=== PATIENT | male | born 1935 | race Caucasian/White ===

== ENCOUNTER 2018-10-25 03:02 | Observation (INO) | payer MEDICARE ==
[~2018-10-25] VITALS: Ht 190.5 cm; Wt 79.4 kg
[~2018-10-25 03:02] MED LIST: ASPIRIN81 MG PO; DILANTIN100 MG PO; NEURONTIN100 MG PO; PHENOBARBITAL30 MG PO; dilantin
--- OUTSIDE RECORDS SUMMARY | 2018-10-25 03:05 | XMS REPORT | Continuity of Care Document ---
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 The patient has well controlled epilepsy life long. Originally documented as Generalized convulsive epilepsy. 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 The patient has a severe motor sensory iPN. I again recommended AFOs. This time, he was willing to go. 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 [facility] Compression fracture of vertebral column<sup>1</sup> Active 05/28/2015 Problem 02/19/2018 Data migrated from [employer] on 09/09/15. The patient describes recent fall related VCFs. His pain is much better and Dr. Box is managing the problem appropriately. Originally documented as Vertebral compression fracture. [facility] Peripheral vestibular vertigo<sup>6</sup> Active 01/22/2014 Problem 02/19/2018 Data migrated from [employer] on 09/09/15. Originally documented as Vertigo, peripheral. [facility] Epilepsy Active Problem 02/19/2018 [facility] EP (<span ID="[id number]">Confirmed</span>) Resolved Problem 02/19/2018 [facility] Vertigo, peripheral Resolved Problem 02/19/2018 [facility] Squamous cell skin cancer, multiple sites Resolved Problem 02/19/2018 [facility] Medications Medication Details Route Status Patient Instructions Ordering Provider Order Date Source PHENobarbital 30 mg oral tablet 90 mg=3 tab, PO, Bedtime, # 270 tab, 1 Refill(s), called to pharmacy Active 02/15/2018 [facility] gabapentin 100 MG Oral Capsule 200 mg=2 cap, PO, Bedtime, # 180 cap, 3 Refill(s), NIKIA, Pharmacy: [facility] [id number] Active 12/22/2017 [facility] phenytoin 100 mg oral capsule, extended release 300 mg=3 cap, PO, Bedtime, # 270 cap, 3 Refill(s), [id number] Active 12/22/2017 [facility] PHENobarbital 30 mg oral tablet 30 mg=1 tab, PO, TID, # 270 tab, 3 Refill(s) Active 12/22/2017 [facility] PHENobarbital 30 mg oral tablet 30 mg=1 tab, PO, TID, # 270 tab, 0 Refill(s), called to pharmacy No Longer Active 11/08/2017 [facility] Allergies, Adverse Reactions, Alerts Substance Category Reaction Severity Reaction type Status Date Reported Comments Source Immunizations Immunization Date Given Site Status Last Updated Comments Source Results Order Name Results Value Reference Range Date Interpretation Comments Source Vital Signs Vital Sign Value Date Comments Source BMI Calculated 22.55 02[facility]03[facility]2018 [facility] Weight 81.818 02/03/2018 [facility] Height 190.5 cm 02/03/2018 [facility] Heart Rate 92 02/03/2018 [facility] Systolic (mm Hg) 154 02/03/2018 [facility] Diastolic (mm Hg) 94 02/03/2018 [facility] Weight 80.966 12/22/2017 [facility] Heart Rate 83 12/22/2017 [facility] Systolic (mm Hg) 145 12/22/2017 [facility] Diastolic (mm Hg) 87 12/22/2017 [facility] Encounters Location Location Details Encounter Type Encounter Number Reason For Visit Attending Provider ADM Date DC Date Status Source Outpatient [id number] [facility] 04/[facility]2016 Active [facility] [id number] [facility] 10/21/2016 Active [facility] [id number] [facility] 04/27/2017 Active [facility] [id number] [facility] Ambulatory Pre-Reg [id number] [facility] 10[facility]25/2017 10/25/2017 [facility] MIA Neurology [facility] Phone Message [id number] 11/08/2017 11/10/2017 [facility] [id number] [facility] 12/22/2017 Active [facility] MNA Neurology [facility] Outpatient [id number] [facility] 12/22/2017 12/23/2017 [facility] MNA Neurology [facility] Phone Message [id number] 01/04/2018 01/06/2018 [facility]NA [facility] Phone Message [id number] 01/06/2018 01/08/2018 [facility] MNA Neurology [facility] Phone Message [id number] 01/25/2018 01/27/2018 [facility] Outpatient [id number] ESPERANZA GORDILLO 02/03/2018 Active [facility] MNA Neurology [facility] Outpatient [id number] [facility] 02/03/2018 02/04/2018 [facility] MNA Neurology [facility] Phone Message [id number] 02/15/2018 02/17/2018 [facility] [id number] [facility] 06/23/2018 Active [facility] Outpatient [id number] ESPERANZA GORDILLO 09/05/2018 Active [facility] [id number] [facility] 12/21/2018 Active [facility] Procedures Procedure Code Date Perfomer Comments Source T[facility]illect[facility] [id number] [facility]23/[facility] [id number] [facility] Complicated cataract [facility] [id number] [facility]
--- OUTSIDE RECORDS SUMMARY | 2018-10-25 03:05 | XMS REPORT | Summary of Care ---
Author Author [facility] Organization [facility] Address Unknown Phone Unavailable Encounter MARIO Shaw(FABIO) [id number] Date(s): 10/25/17 - 10/25/17 [facility] [address] [place] [phone] Attending Physician: Jonas Chester MD Referring Physician: Josi Klein MD Vital Signs No data available for this section Problem List Condition Effective Dates Status Health Status Informant Compression fracture 05/28/15 Active of vertebral column(Confirmed)1 Epilepsy(Confirmed) Active EP Resolved (epilepsy)(Confirmed ) Generalized 09/16/16 Active convulsive epilepsy(Confirmed)2 , 3, 4 Idiopathic 04/23/16 Active progressive polyneuropathy(Confi rmed)5 Peripheral 01/22/14 Active vestibular vertigo(Confirmed)6 Vertigo, Resolved peripheral(Confirmed ) Squamous cell skin Resolved cancer, multiple sites(Confirmed) 1Data migrated from [employer] on 09/09/15. The patient describes recent fall related VCFs. His pain is much better and Dr. Box is managing the problem appropriately. Originally documented as Vertebral compression fracture. 2Data migrated from [employer] on 09/27/2016. The patient has well controlled epilepsy life long. Originally documented as Generalized convulsive epilepsy. 3Data migrated from [employer] on 09/27/2016. The patient has well controlled epilepsy life long. Originally documented as Generalized convulsive epilepsy. 4Data migrated from [employer] on 09/09/15. The patient has well controlled epilepsy life long. Originally documented as Generalized convulsive epilepsy. 5Data migrated from [employer] on 09/09/15. The patient has a severe motor sensory iPN. I again recommended AFOs. This time, he was willing to go. 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 6Data migrated from [employer] on 09/09/15. Originally documented as Vertigo, peripheral. Allergies, Adverse Reactions, Alerts Substance Reaction Severity Status NKDA Active Medications No data available for this section Results No data available for this section Immunizations No data available for this section Procedures Procedure Date Related Diagnosis Body Site Status Tonsillectomy 1937 Completed Tonsillectomy 1937 Completed Cataract surgery Completed Complicated cataract surgery Completed Social History Social History Type Response Employment/School Status: Retired. Highest education level: Other. Alcohol Never Smoking Status Former smoker; Exposure to Tobacco Smoke Unable to obtain; Cigarette Smoking Last 365 Days Unable to obtain; Reg Smoking Cessation Counseling No entered on: 04/27/17 Assessment and Plan No data available for this section
--- OUTSIDE RECORDS SUMMARY | 2018-10-25 03:06 | XMS REPORT | Summary of Care ---
Author Author [facility] Organization [facility] Address Unknown Phone Unavailable Encounter MARIO Shaw(FABIO) [id number] Date(s): 01/25/18 - 01/26/18 [facility] [address] [place] [phone] Vital Signs No data available for this section Problem List Condition Effective Dates Status Health Status Informant Compression fracture 05/28/15 Active of vertebral column(Confirmed)1 Epilepsy(Confirmed) Active EP Resolved (epilepsy)(Confirmed ) Generalized 09/16/16 Active convulsive epilepsy(Confirmed)2 , 3, 4 Idiopathic 04/23/16 Active progressive polyneuropathy(Confi rmed)5 Peripheral 01/22/14 Active vestibular vertigo(Confirmed)6 Vertigo, Resolved peripheral(Confirmed ) Squamous cell skin Resolved cancer, multiple sites(Confirmed) 1Data migrated from [employer] on 09/09/15. The patient describes recent fall related VCFs. His pain is much better and Dr. Box is managing the problem appropriately. Originally documented as Vertebral compression fracture. 2Data migrated from [employer] on 09/27/2016. The patient has well controlled epilepsy life long. Originally documented as Generalized convulsive epilepsy. 3Data migrated from [employer] on 09/27/2016. The patient has well controlled epilepsy life long. Originally documented as Generalized convulsive epilepsy. 4Data migrated from [employer] on 09/09/15. The patient has well controlled epilepsy life long. Originally documented as Generalized convulsive epilepsy. 5Data migrated from [employer] on 09/09/15. The patient has a severe motor sensory iPN. I again recommended AFOs. This time, he was willing to go. 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 6Data migrated from [employer] on 09/09/15. Originally documented as Vertigo, peripheral. [...] Completed Social History Social History Type Response Substance Abuse Use: None. Employment/School Status: Retired. Highest education level: Other. Alcohol Never Smoking Status Former smoker; Exposure to Tobacco Smoke Unable to obtain; Cigarette Smoking Last 365 Days Unable to obtain; Reg Smoking Cessation Counseling No entered on: 12/22/17 Assessment and Plan No data available for this section
--- OUTSIDE RECORDS SUMMARY | 2018-10-25 03:06 | XMS REPORT | Summary of Care ---
Author Author [facility] Organization [facility] Address Unknown Phone Unavailable Encounter MARIO Shaw(FABIO) [id number] Date(s): 12/22/17 - 12/22/17 [facility] [address] [place] [phone] Discharge Disposition: Home or Self Care Attending Physician: Jonas Chester MD Referring Physician: oJsi Klein MD Vital Signs Most recent to 1 oldest [Reference Range]: Blood Pressure 145/87 mmHg [90-140/60-90 mmHg] *HI* (12/22/17 4:00 PM) Peripheral Pulse 83 bpm Rate [60-100 bpm] (12/22/17 4:00 PM) Weight 80.966 kg (12/22/17 4:00 PM) Problem List Condition Effective Dates Status Health Status Informant Compression fracture 05/28/15 Active of vertebral column(Confirmed)1 Epilepsy(Confirmed) Active EP Resolved (epilepsy)(Confirmed ) Generalized 09/16/16 Active convulsive epilepsy(Confirmed)2 , 3, 4 Idiopathic 04/23/16 Active progressive polyneuropathy(Confi rmed)5 Peripheral 01/22/14 Active vestibular vertigo(Confirmed)6 Vertigo, Resolved peripheral(Confirmed ) Squamous cell skin Resolved cancer, multiple sites(Confirmed) 1Data migrated from [employer] on 09/09/15. The patient describes recent fall related VCFs. His pain is much better and Dr. Box is managing the problem appropriately. Originally documented as Vertebral compression fracture. 2Data migrated from [employer] on 09/27/2016. The patient has well controlled epilepsy life long. Originally documented as Generalized convulsive epilepsy. 3Data migrated from [employer] on 09/27/2016. The patient has well controlled epilepsy life long. Originally documented as Generalized convulsive epilepsy. 4Data migrated from [employer] on 09/09/15. The patient has well controlled epilepsy life long. Originally documented as Generalized convulsive epilepsy. 5Data migrated from [employer] on 09/09/15. The patient has a severe motor sensory iPN. I again recommended AFOs. This time, he was willing to go. 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 6Data migrated from [employer] on 09/09/15. Originally documented as Vertigo, peripheral. Allergies, Adverse Reactions, Alerts Substance Reaction Severity Status NKDA Active Medications gabapentin 100 mg oral capsule 200 mg=2 cap, PO, Bedtime, # 180 cap, 3 Refill(s), NIKIA, Pharmacy: [facility] [id number] Start Date: 12/22/17 Stop Date: 12/17/18 Status: Ordered PHENobarbital 30 mg oral tablet 30 mg=1 tab, PO, TID, # 270 tab, 3 Refill(s) Start Date: 12/22/17 Stop Date: 12/17/18 Status: Ordered phenytoin 100 mg oral capsule, extended release 300 mg=3 cap, PO, Bedtime, # 270 cap, 3 Refill(s), Pharmacy: [id number] Start Date: 12/22/17 Stop Date: 12/17/18 Status: Ordered Results No data available for this section [...]
--- OUTSIDE RECORDS SUMMARY | 2018-10-25 03:06 | XMS REPORT | Summary of Care ---
Author Author [facility] Organization [facility] Address Unknown Phone Unavailable Encounter MARIO Shaw(FABIO) [id number] Date(s): 12/22/17 - 12/22/17 [facility] [address] [place] [phone] Discharge Disposition: Home or Self Care Attending Physician: Jonas Chester MD Referring Physician: Josi Klein MD Vital Signs Most recent to [...] Resolved cancer, multiple sites(Confirmed) 1Data migrated from [employer] on 09/09/15. The patient describes recent fall related VCFs. His pain is much better and Dr. Box is managing the problem appropriately. Originally documented as Vertebral compression fracture. 2Data migrated from [employer] on 09/27/2016. The patient has well controlled epilepsy life long. Originally documented as Generalized convulsive epilepsy. 3Data migrated from [employer] on 09/27/2016. The patient has well controlled epilepsy life long. Originally documented as Generalized convulsive epilepsy. 4Data migrated from [employer] on 09/09/15. The patient has well controlled epilepsy life long. Originally documented as Generalized convulsive epilepsy. 5Data migrated from [employer] on 09/09/15. The patient has a severe motor sensory iPN. I again recommended AFOs. This time, he was willing to go. 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 6Data migrated from [employer] on 09/09/15. Originally documented as Vertigo, peripheral. Allergies, Adverse Reactions, Alerts Substance Reaction Severity Status NKDA Active Medications gabapentin 100 mg oral capsule 200 mg=2 cap, PO, Bedtime, # 180 cap, 3 Refill(s), NIKIA, Pharmacy: [id number] Start Date: 12/22/17 Stop Date: 12/17/18 Status: Ordered PHENobarbital 30 mg oral tablet 30 mg=1 tab, PO, TID, # 270 tab, 3 Refill(s) Start Date: 12/22/17 Stop Date: 12/17/18 Status: Ordered phenytoin 100 mg oral capsule, extended release 300 mg=3 cap, PO, Bedtime, # 270 cap, 3 Refill(s), Pharmacy: [id number] Start Date: 12/22/17 Stop Date: 12/17/18 Status: [...]
--- OUTSIDE RECORDS SUMMARY | 2018-10-25 03:06 | XMS REPORT | Summary of Care ---
Author Author [facility] Organization [facility] Address Unknown Phone Unavailable Encounter MARIO Shaw(FABIO) [id number] Date(s): 02/03/18 - 02/03/18 [facility] [address] [place] [phone] Discharge Disposition: Home or Self Care Attending Physician: Jonas Chester MD Referring Physician: Josi Klein MD Vital Signs Most recent to 1 oldest [Reference Range]: Height 190.5 cm (02/03/18 10:53 AM) Blood Pressure 154/94 mmHg [90-140/60-90 mmHg] *HI* (02/03/18 10:53 AM) Peripheral Pulse 92 bpm Rate [60-100 bpm] (02/03/18 10:53 AM) Weight 81.818 kg (02/03/18 10:53 AM) Body Mass Index 22.55 m2 (02/03/18 10:53 AM) Problem List Condition Effective Dates Status Health Status Informant Compression fracture 05/28/15 Active of vertebral column(Confirmed)1 Epilepsy(Confirmed) Active EP Resolved (epilepsy)(Confirmed ) Generalized 09/16/16 Active convulsive epilepsy(Confirmed)2 , 3, 4 Idiopathic 04/23/16 Active progressive polyneuropathy(Confi rmed)5 Peripheral 01/22/14 Active vestibular vertigo(Confirmed)6 Vertigo, Resolved peripheral(Confirmed ) Squamous cell skin Resolved cancer, multiple sites(Confirmed) 1Data migrated from [employer] on 09/09/15. The patient describes recent fall related VCFs. His pain is much better and Dr. Box is managing the problem appropriately. Originally documented as Vertebral compression fracture. 2Data migrated from [employer] on 09/27/2016. The patient has well controlled epilepsy life long. Originally documented as Generalized convulsive epilepsy. 3Data migrated from [employer] on 09/27/2016. The patient has well controlled epilepsy life long. Originally documented as Generalized convulsive epilepsy. 4Data migrated from [employer] on 09/09/15. The patient has well controlled epilepsy life long. Originally documented as Generalized convulsive epilepsy. 5Data migrated from [employer] on 09/09/15. The patient has a severe motor sensory iPN. I again recommended AFOs. This time, he was willing to go. 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 6Data migrated from [employer] on 09/09/15. Originally documented as Vertigo, peripheral. Allergies, Adverse Reactions, Alerts Substance Reaction Severity Status NKDA Active Medications No Known Medications Results No data available for this section [...] Reg Smoking Cessation Counseling No entered on: 02/03/18 Assessment and Plan No data available for this section
--- OUTSIDE RECORDS SUMMARY | 2018-10-25 03:06 | XMS REPORT | Summary of Care ---
Author Author [facility] Organization [facility] Address Unknown Phone Unavailable Encounter MARIO Shaw(FIN) [id number] Date(s): 01/04/18 - 01/05/18 [facility] [address] [place] [phone] Vital Signs No data available for this section Problem List Condition Effective Dates Status Health Status Informant Compression fracture 05/28/15 Active of vertebral column(Confirmed)1 Epilepsy(Confirmed) Active EP Resolved (epilepsy)(Confirmed ) Generalized 09/16/16 Active convulsive epilepsy(Confirmed)2 , 3, 4 Idiopathic 04/23/16 Active progressive polyneuropathy(Confi rmed)5 Peripheral 01/22/14 Active vestibular vertigo(Confirmed)6 Vertigo, Resolved peripheral(Confirmed ) Squamous cell skin Resolved cancer, multiple sites(Confirmed) 1Data migrated from [employer] on 09/09/15. The patient describes recent fall related VCFs. His pain is much better and Dr. Box is managing the problem appropriately. Originally documented as Vertebral compression fracture. 2Data migrated from [employer] on 09/27/2016. The patient has well controlled epilepsy life long. Originally documented as Generalized convulsive epilepsy. 3Data migrated from [employer] on 09/27/2016. The patient has well controlled epilepsy life long. Originally documented as Generalized convulsive epilepsy. 4Data migrated from [employer] on 09/09/15. The patient has well controlled epilepsy life long. Originally documented as Generalized convulsive epilepsy. 5Data migrated from [employer] on 09/09/15. The patient has a severe motor sensory iPN. I again recommended AFOs. This time, he was willing to go. 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 6Data migrated from [employer] on 09/09/15. Originally documented as Vertigo, peripheral. [...]
--- OUTSIDE RECORDS SUMMARY | 2018-10-25 03:06 | XMS REPORT | Summary of Care ---
Author Author [facility] Organization [facility] Address Unknown Phone Unavailable Encounter MARIO Shaw(FIN) [id number] Date(s): 11/08/17 - 11/09/17 [facility] [address] [place] [phone] Vital Signs No data available for this section Problem List Condition Effective Dates Status Health Status Informant Compression fracture 05/28/15 Active of vertebral column(Confirmed)1 Epilepsy(Confirmed) Active EP Resolved (epilepsy)(Confirmed ) Generalized 09/16/16 Active convulsive epilepsy(Confirmed)2 , 3, 4 Idiopathic 04/23/16 Active progressive polyneuropathy(Confi rmed)5 Peripheral 01/22/14 Active vestibular vertigo(Confirmed)6 Vertigo, Resolved peripheral(Confirmed ) Squamous cell skin Resolved cancer, multiple sites(Confirmed) 1Data migrated from [employer] on 09/09/15. The patient describes recent fall related VCFs. His pain is much better and Dr. Box is managing the problem appropriately. Originally documented as Vertebral compression fracture. 2Data migrated from [employer] on 09/27/2016. The patient has well controlled epilepsy life long. Originally documented as Generalized convulsive epilepsy. 3Data migrated from [employer] on 09/27/2016. The patient has well controlled epilepsy life long. Originally documented as Generalized convulsive epilepsy. 4Data migrated from [employer] on 09/09/15. The patient has well controlled epilepsy life long. Originally documented as Generalized convulsive epilepsy. 5Data migrated from [employer] on 09/09/15. The patient has a severe motor sensory iPN. I again recommended AFOs. This time, he was willing to go. 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 6Data migrated from [employer] on 09/09/15. Originally documented as Vertigo, peripheral. Allergies, Adverse Reactions, Alerts Substance Reaction Severity Status NKDA Active Medications PHENobarbital 30 mg oral tablet 30 mg=1 tab, PO, TID, # 270 tab, 0 Refill(s), called to pharmacy Start Date: 11/08/17 Stop Date: 12/22/17 Status: Discontinued Results No data available for this section [...]
--- OUTSIDE RECORDS SUMMARY | 2018-10-25 03:06 | XMS REPORT | Summary of Care ---
Author Author [facility] Organization [facility] Address Unknown Phone Unavailable Encounter MARIO Shaw(FABIO) [id number] Date(s): 02/15/18 - 02/16/18 [facility] [address] [place] [phone] Vital Signs No data available for this section Problem List Condition Effective Dates Status Health Status Informant Compression fracture 05/28/15 Active of vertebral column(Confirmed)1 Epilepsy(Confirmed) Active EP Resolved (epilepsy)(Confirmed ) Generalized 09/16/16 Active convulsive epilepsy(Confirmed)2 , 3, 4 Idiopathic 04/23/16 Active progressive polyneuropathy(Confi rmed)5 Peripheral 01/22/14 Active vestibular vertigo(Confirmed)6 Vertigo, Resolved peripheral(Confirmed ) Squamous cell skin Resolved cancer, multiple sites(Confirmed) 1Data migrated from [employer] on 09/09/15. The patient describes recent fall related VCFs. His pain is much better and Dr. Box is managing the problem appropriately. Originally documented as Vertebral compression fracture. 2Data migrated from Re[employer] on 09/27/2016. The patient has well controlled epilepsy life long. Originally documented as Generalized convulsive epilepsy. 3Data migrated from [employer] on 09/27/2016. The patient has well controlled epilepsy life long. Originally documented as Generalized convulsive epilepsy. 4Data migrated from [employer] on 09/09/15. The patient has well controlled epilepsy life long. Originally documented as Generalized convulsive epilepsy. 5Data migrated from Re[employer] on 09/09/15. The patient has a severe motor sensory iPN. I again recommended AFOs. This time, he was willing to go. 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 6Data migrated from Recl[employer] on 09/09/15. Originally documented as Vertigo, peripheral. Allergies, Adverse Reactions, Alerts Substance Reaction Severity Status NKDA Active Medications PHENobarbital 30 mg oral tablet 90 mg=3 tab, PO, Bedtime, # 270 tab, 1 Refill(s), called to pharmacy Start Date: 02/15/18 Stop Date: 08/14/18 Status: Ordered Results No data available for [...]
--- OUTSIDE RECORDS SUMMARY | 2018-10-25 03:06 | XMS REPORT | Summary of Care ---
Author Author [facility] Organization [facility] Address Unknown Phone Unavailable Encounter MARIO Shaw(FABIO) [id number] Date(s): 01/06/18 - 01/07/18 [facility] Neurosurgery [facility] [address], [address] [place], [place] [address] [phone] Vital Signs No data available for this section Problem List Condition Effective Dates Status Health Status Informant Compression fracture 05/28/15 Active of vertebral column(Confirmed)1 Epilepsy(Confirmed) Active EP Resolved (epilepsy)(Confirmed ) 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 The patient describes recent fall related VCFs. His pain is much better and Dr. Box is managing the problem appropriately. Originally documented as Vertebral compression fracture. 2Data migrated from [employer] on 09/27/2016. The patient has well controlled epilepsy life long. Originally documented as Generalized convulsive epilepsy. 3Data migrated from [employer] on 09/27/2016. The patient has well controlled epilepsy life long. Originally documented as Generalized convulsive epilepsy. 4Data migrated from [employer] on 09/09/15. The patient has well controlled epilepsy life long. Originally documented as Generalized convulsive epilepsy. 5Data migrated from [employer] on 09/09/15. The patient has a severe motor sensory iPN. I again recommended AFOs. This time, he was willing to go. 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 6Data migrated from [employer] on 09/09/15. Originally documented as Vertigo, peripheral. [...]
--- OUTSIDE RECORDS SUMMARY | 2018-10-25 03:06 | XMS REPORT | Summary of Care ---
Author Author [facility] Organization [facility] Address Unknown Phone Unavailable Encounter MARIO Shaw(FABIO) [id number] Date(s): 10/25/17 - 10/25/17 [facility] [address] [place] [phone] Attending Physician: Jonas Chester MD Referring Physician: [...] Resolved cancer, multiple sites(Confirmed) 1Data migrated from [employer] on 09/09/15. The patient describes recent fall related VCFs. His pain is much better and Dr. Box is managing the problem appropriately. Originally documented as Vertebral compression fracture. 2Data migrated from [employer] on 09/27/2016. The patient has well controlled epilepsy life long. Originally documented as Generalized convulsive epilepsy. 3Data migrated from [employer] on 09/27/2016. The patient has well controlled epilepsy life long. Originally documented as Generalized convulsive epilepsy. 4Data migrated from [employer] on 09/09/15. The patient has well controlled epilepsy life long. Originally documented as Generalized convulsive epilepsy. 5Data migrated from [employer] on 09/09/15. The patient has a severe motor sensory iPN. I again recommended AFOs. This time, he was willing to go. 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 6Data migrated from [employer] on 09/09/15. Originally documented as Vertigo, peripheral. [...]
[2018-10-25 03:45] LABS: BASOPHILS % 0.3 % (0.0-1.0); EOSINOPHILS # (AUTO) 0.3 (0.0-0.4); EOSINOPHILS % 4.4 % (0.0-6.0); HEMATOCRIT 33.7 % (38.2-49.6); HEMOGLOBIN 11.8 g/dL (14.0-18.0); LYMPHOCYTES # (AUTO) 0.9 (1.0-3.2); LYMPHOCYTES % 11.5 % (18.0-39.1); MEAN CORPUSCULAR HEMOGLOBIN 33.4 pg (28-32); MEAN CORPUSCULAR VOLUME 95.5 fL (81-99); MONOCYTES # (AUTO) 0.8 (0.2-0.8); MONOCYTES % 10.5 % (4.4-11.3); NEUTROPHILS # (AUTO) 5.7 (2.1-6.9); NEUTROPHILS % 72.8 % (38.7-80.0); PLATELET COUNT 214 x10e3/uL (140-360); RED BLOOD COUNT 3.53 x10e6/uL (4.3-5.7); RED CELL DISTRIBUTION WIDTH 12.5 % (11.7-14.4)
--- NOTE | 2018-10-25 03:50 | NUR ---
pt attempted to void in urinal, states he cannot void.
[2018-10-25 04:03] LABS: ALANINE AMINOTRANSFERASE 15 IU/L (0-55); ALBUMIN 3.7 g/dL (3.5-5.0); ALBUMIN/GLOBULIN RATIO 1.1 (0.8-2.0); ALKALINE PHOSPHATASE 92 IU/L (40-150); ANION GAP 13.7 mmol/L (8-16); BLOOD UREA NITROGEN 12 mg/dL (7-26); BUN/CREATININE RATIO 15 (6-25); CALCIUM 9.5 mg/dL (8.4-10.2); CARBON DIOXIDE 24 mmol/L (22-29); CHLORIDE 95 mmol/L (98-107); CREATINE KINASE 99 IU/L (30-200); EST GLOMERULAR FILTRATION RATE > 60 ML/MIN (60-); GLUCOSE 101 mg/dL (74-118); POTASSIUM 3.7 mmol/L (3.5-5.1); SODIUM 129 mmol/L (136-145)
[2018-10-25] MEDS ORDERED: LISINOPRIL20 MG PO (04:43)
--- NOTE | 2018-10-25 04:44 | Diagnostic Imaging Report ---
EXAMINATION: CHEST SINGLE (NOT PORTABLE) INDICATION: weakness COMPARISON: Chest x-ray 02/17/2017 FINDINGS: AP view TUBES and LINES: None. LUNGS: Lungs are well inflated. There is no evidence of pneumonia or pulmonary edema. PLEURA: No pleural effusion or pneumothorax. HEART AND MEDIASTINUM: Stable prominence of the right paratracheal stripe since 02/17/2017 possibly related to mediastinal lipomatosis or vascular silhouette given stability. The cardiomediastinal silhouette is otherwise unremarkable. BONES AND SOFT TISSUES: No acute osseous lesion. Soft tissues are unremarkable. UPPER ABDOMEN: No free air under the diaphragm. IMPRESSION: No acute thoracic abnormality. Signed by: DR. Zion Butler MD on 10/25/2018 4:41 AM
--- NOTE | 2018-10-25 04:46 | Diagnostic Imaging Report ---
HIP RIGHT 2-3 VW (+/- PELVIS) HISTORY: Pain. Fall. COMPARISON: None available. FINDINGS: Bones: No acute displaced fracture. Osseous alignment is within normal limits. Joints: Mild to moderate degenerative changes of the hips. Soft tissues: The soft tissues appear unremarkable. IMPRESSION: No acute radiographic abnormality. Signed by: DR. Zion Butler MD on 10/25/2018 4:43 AM
[2018-10-25 04:58] LABS: BILIRUBIN,URINE NEGATIVE (NEGATIVE); CLARITY,URINE CLEAR (CLEAR); COLOR,URINE YELLOW (YELLOW); KETONES,URINE NEGATIVE (NEGATIVE); LEUKOCYTE ESTERASE ,URINE NEGATIVE (NEGATIVE); NITRITE,URINE NEGATIVE (NEGATIVE); PROTEIN,URINE DIPSTICK NEGATIVE (NEGATIVE); URINE UROBILINOGEN 0.2 mg/dL (0.2 - 1)
[2018-10-25 05:08] LABS: EPITHELIAL CELLS,URINE RARE /LPF; RBC,URINE 0-5 /HPF (0-5); WBC,URINE (MAN) 0-5 /HPF (0-5)
--- NOTE | 2018-10-25 06:21 | NUR ---
PT AWAKE ALERT SKIN W/D RESP NONLAB. NAD NOTED. AWAITING PHENOBARITAL AND DILANTIN LEVELS, EXPLAINED TO PATIENT, VERBALIZED UNDERSTANDING. AT BEDSIDE
--- OUTSIDE RECORDS SUMMARY | 2018-10-25 06:23 | XMS REPORT ---
Author Author [facility] Address Unknown Phone Unavailable Care Team Providers Care Multimedia Project Manager Name Role Phone Aram SALAZAR Unavailable Unavailable Problems This patient has no known problems. Allergies, Adverse Reactions, Alerts This patient has no known allergies or adverse reactions. Medications This patient has no known medications. Results Test Description Test Time Test Comments Text Results Atomic Results Result Comments HIP RIGHT 2-3 VW (+/- PELVIS) 2018-10-25 04:41:00 [place] [address] Patient Name: MARISELA SMITH MR #: [id number] : 1935 Age/Sex: 83/M Req #: [id number] Adm Physician: Ordered by: DEE SALAZAR MD Report #: [id number] Location: ER Room/Bed: Procedure: [id number] DX/HIP RIGHT 2-3 VW (+/- PELVIS) Exam Date: Exam Time: REPORT STATUS: Signed HIP RIGHT 2-3 VW (+/- PELVIS) HISTORY: Pain. Fall. COMPARISON: None available. FINDINGS: Bones: No acute displaced fracture. Osseous alignment is within normal limits. Joints: Mild to moderate degenerative changes of the hips. Soft tissues: The soft tissues appear unremarkable. IMPRESSION: No acute radiographic abnormality. Signed by: DR. Zion Butler MD on 10/25/2018 4:43 AM Dictated By: ZION BUTLER MD 2 Transcribed By: HARI on 10/25/18442 COPY TO: DEE SALAZAR MD CHEST SINGLE (NOT PORTABLE) 2018-10-25 04:39:00 [place] [address] Patient Name: MARISELA SMITH MR #: [id number] : 1935 Age/Sex: 83/M Req #: [id number] Adm Physician: Ordered by: DEE SALAZAR MD Report #: [id number] Location: ER Room/Bed: Procedure: [id number] DX/CHEST SINGLE (NOT PORTABLE) Exam Date: 10/25/18 Exam Time: 5 REPORT STATUS: Signed EXAMINATION: CHEST SINGLE (NOT PORTABLE) INDICATION: weakness COMPARISON: Chest x-ray 02/17/2017 FINDINGS: AP view TUBES and LINES: None. LUNGS: Lungs are well inflated. There is no evidence of pneumonia or pulmonary edema. PLEURA: No pleural effusion or pneumothorax. HEART AND MEDIASTINUM: Stable prominence of the right paratracheal stripe since 02/17/2017 possibly related to medias tinal lipomatosis or vascular silhouette given stability. The cardiomediastinal silhouette is otherwise unremarkable. BONES AND SOFT TISSUES: No acute osseous lesion. Soft tissues are unremarkable. UPPER ABDOMEN: No free air under the diaphragm. IMPRESSION: No acute thoracic abnormality. Signed by: DR. Zion Butler MD on 10/25/2018 4:41 AM Dictated By: ZION BUTLER MD 0 Transcribed By: HARI on 10/25/18440 COPY TO: DEE SALAZAR MD
--- NOTE | 2018-10-25 06:51 | NUR ---
report to yakov vick
[2018-10-25] MEDS ORDERED: ONDANSETRON HCL INJ 2MG/ML 2ML 2 MG/ML VIAL IV PRN (07:00)
[2018-10-25] MEDS ORDERED: SODIUM CHLORIDE FLUSH 10 ML SYR INJ PRN (07:00)
--- NOTE | 2018-10-25 08:34 | NUR ---
CALLED HS REGARDING CASE ASHLEY CONSULT. FM/PT UPDATED ON PLAN OF CARE.
[2018-10-25] MEDS ORDERED: ASPIRIN 81 MG CHEW TAB PO SCH (09:00)
[2018-10-25] MEDS ORDERED: LISINOPRIL 20 MG TAB PO SCH (09:00)
--- NOTE | 2018-10-25 10:06 | NUR ---
BALJEET HERE SEEING PT AND PHY.THERAPY IN ROOM DOING EVAL. PT/FM WITH MULTIPLE UPDATES. NOT WITH PT FOR LAST SEVERAL HRS. [facility] NOTIFIED OF PT AND COMING TO DO EVAL FOR PT TO SEE IF QUALIFIES FOR [facility].
--- NOTE | 2018-10-25 10:48 | NUR ---
PT UPDATED AGAIN. PT NEW BEDDING AND CLEAN LINEN. WALKED 35 FEET WITH PT. BACK IN BED, MONITORS ON VSS.
--- NOTE | 2018-10-25 10:59 | NUR ---
SPOKE WITH PATIENT HE WOULD LIKE TO GO TO [facility] SIGNED CHOICE FILED WITH CHART AND CONTACTED KATARZYNA WITH [facility] WHOM IS PICKING UP CLINICALS TO EVALUATE PT FOR REFERRAL.
--- NOTE | 2018-10-25 11:50 | NUR ---
KATARZYNA FROM [facility] SAW PT AND AWAITING PLACEMENT...
--- NOTE | 2018-10-25 13:20 | NUR ---
DR ANDERSON SAW PT IN ER FOR EVAL.
--- NOTE | 2018-10-25 13:55 | NUR ---
PER MD, PT TO HAVE HIP CT; EDI [facility]ATZ [facility] STILL DOING EVAL/PAPERWORK. MD AWARE. PT AND FM UPDATED.
--- NOTE | 2018-10-25 15:49 | Diagnostic Imaging Report ---
TECHNIQUE: Computed tomography imaging of the RIGHT HIP was performed WITHOUT injected contrast. Dose modulation, iterative reconstruction, and/or weight based adjustment of the mA/kV was utilized to reduce the radiation dose to as low as reasonably achievable. HISTORY: Right hip pain COMPARISON: None available. FINDINGS: No displaced fracture. No lytic or blastic lesion. Mild degenerative arthrosis of the hip and pubic symphysis with chondrocalcinosis. No soft tissue mass or fluid collection. Vascular calcifications. Mild generalized atrophy. IMPRESSION: No displaced fracture. Mild degenerative arthrosis of the hip Signed by: Dr. Stefan Michaels M.D. on 10/25/2018 3:45 PM
--- NOTE | 2018-10-25 15:58 | NUR ---
SPOKE WITH [facility] AGUILAR PT ACCEPTED CALL REPORT AND SET UP TRANSPORT AT 730 TO GO TO [address] [place] [address], [place] [address]. CALL REPORT TO [phone] ADMIN IS FAMILIA WARD AT SAME NUMBER, MOT GIVEN TO ED CHARGE NURSE NITISH Crawley
--- NOTE | 2018-10-25 16:03 | NUR ---
CALLED NON [employer] TO DO A WELL CHECK ON PT. UPDATED PT.
--- NOTE | 2018-10-25 17:04 | NUR ---
CALLED REPORT TO JONATHAN MARION.
--- NOTE | 2018-10-25 17:17 | NUR ---
CALLED LEXY @ [facility] AND SET UP APPT WINDOW INSTALLATION SUBCONTRACTOR FOR [address] TO TAKE PT TO [facility] [address]. UPDATED PT
--- NOTE | 2018-10-25 17:48 | NUR ---
SPOKE TO BERNABE, PT'S DAUGHTER AND UPDATED PT. PT'S IS WITH FM FRIEND NAMED CONY AND PT'S DAUGHTER IS ON HER WAY WITH HER LORRAINE AND WILL GEOPHYSICAL DATA TECHNICIAN PT'S MIKE AND COME TO ER OR IF PAST [address] WILL DRIVE TO [facility] AND SEE PT THERE. PT UPDATED OF ALL INFORMATION. PT HAS FOOD TRAY AT BEDSIDE AND ASST WITH FOOD.
--- NOTE | 2018-10-25 18:24 | NUR ---
NUMBER OFF PHONE FOR PT TO HAVE FOR HIS DAUGHTERS CELL NUMBER.
--- NOTE | 2018-10-25 19:00 | NUR ---
REPORT TO PADILLA
[2018-10-25] MEDS ORDERED: ACETAMINOPHEN 325 MG TAB PO PRN (21:00)
[2018-10-25] MEDS ORDERED: GABAPENTIN 100 MG CAP PO SCH (21:00)
[2018-10-25] MEDS ORDERED: PHENOBARBITAL 30 MG TAB PO SCH (21:00)
[2018-10-25] MEDS ORDERED: PHENYTOIN SODIUM EXT REL 100 MG CAP PO SCH (21:00)
[2018-10-25] MEDS ORDERED: ACETAMINOPHEN 325 MG TAB ONE (21:00)
--- NOTE | 2018-10-25 21:05 | NUR ---
ambulance arrived for transport. paperwork to ems personnel. pt c fever 100.[address] rockwell called to inform. order for tylenol rc'd. pt medicated per orders. states that ok for transfer to to [facility].
--- NOTE | 2018-10-25 21:12 | History and Physical ---
HISTORY OF PRESENT ILLNESS: He is an 83-year-old male with past medical history positive for severe polyneuropathy and seizure disorder. He has been falling for at least 10 days, unable to get out of the bed today. He came to the emergency room. He was found to have hyponatremia also. The patient has difficulty walking, unable to be independent with his ADLs. He lives with his who has dementia. [facility] REVIEW OF SYSTEMS: CARDIOVASCULAR: No chest pain or palpitation. RESPIRATORY: No shortness of breath. No cough. GASTROINTESTINAL: No nausea, no vomiting, no diarrhea. PHYSICAL EXAMINATION: VITAL SIGNS: Blood pressure 158/86, temperature , heart rate 90 per minute, respiratory rate 16 per minute, and oxygen saturation 98%. . HEART: Regular rhythm. No murmur or added sound. LUNGS: Clear bilaterally. ABDOMEN: Soft. EXTREMITIES: No evidence of cyanosis or hematoma. LABORATORY DATA: On the blood work, we have CBC with white blood count 7.80, hemoglobin is 11.8, hematocrit 33.7, and platelet count 214,000. On BMP, sodium 129, potassium 3.7, chloride 95, CO2 of 24, anion gap 13.7, BUN 12, creatinine 0.80, glucose 101, and calcium 9.5. Total bilirubin 0.5, AST 24, ALT 16, alkaline phosphatase 92, creatine kinase 99, CK-MB 1.30. Troponin 0.05. Total protein 7.0, albumin 3.7, globulin 3.3, albumin-globin ratio 1.1. Phenytoin and phenobarbital levels are pending. Urinalysis is negative. We ordered a CT of his right hip. The right hip x-ray came back negative, but the patient is still complaining of pain. We are going to do a right hip CT scan to make sure there is not any occult fracture. The chest x-ray is completely negative also. FINAL IMPRESSION: 1. Severe polyneuropathy with frequent falls. 2. Hyponatremia. 3. Seizure disorder. 4. Right hip pain. PLAN OF TREATMENT: We are going to transfer the patient to [facility] for rehabilitation since the patient is falling constantly due to severe neuropathy. Hopefully, with physical therapy he will increase his strength and he will be safe at home. Continue the aspirin 81 mg daily, gabapentin 200 mg at bedtime, lisinopril 20 mg daily, Zofran 4 mg IV q.4 hours as needed for nausea and vomiting, phenobarbital 90 mg daily, and Dilantin 300 mg at bedtime. So, we are going to order BMP for tomorrow. Continue physical therapy and hopefully going to get transferred to [facility] the patient is in agreement with that. MD LAKISHA Duran/ANDRE /[id number]
[2018-10-25 22:26] VITALS: BP 164/86
--- NOTE | 2018-10-26 03:08 | Discharge Summary ---
HISTORY: The patient is an 83-year-old male with past medical history positive for polyneuropathy, seizure disorder, and hypertension, came to the Emergency Room because of frequent falling, unable to walk by himself. The patient is going to be referred to [facility], hopefully will be accepted today for any increased course of physical and occupational therapy. PHYSICAL EXAMINATION: VITAL SIGNS: Blood pressure 158/86, heart rate 90 per minute, respiratory rate 16 per minute, and oxygen saturation 98%. HEART: Showed regular rhythm. No murmurs. No added sounds. LUNGS: Clear bilaterally. ABDOMEN: Soft. IMPRESSION: 1. Frequent falls . 2. Seizure disorder. 3. Right hip pain. 4. Hyponatremia. He underwent a CT of the hip, it came back negative for fracture. The patient can be transferred to [facility] . MD LAKISHA Duran/ANDRE /[id number]
== END 2018-10-25 21:10 ==
LOC: ER 06:18 → ERHOLD 07:17
PROVIDERS: ADMIT Internal Medicine; ATTEND Internal Medicine
DX: R53.1 Weakness (principal); G62.9 Polyneuropathy, unspecified; G40.909 Epilepsy, unspecified, not intractable, without status epilepticus; Z91.81 History of falling; F03.90 Unspecified dementia, unspecified severity, without behavioral disturbance, psychotic disturbance, mood disturbance, and anxiety; E87.1 Hypo-osmolality and hyponatremia; M25.551 Pain in right hip
CPT/HCPCS: 36415; 71045; 73502; 73700; 80053; 80184; 80185; 81001; 82550; 82553; 84484; 85025; 93005; 97116; 97161; 99285; G0378

== ENCOUNTER 2020-02-08 14:32 | Emergency (ER) | payer MEDICARE ==
[~2020-02-08] VITALS: Ht 190.5 cm; Wt 79.4 kg
[~2020-02-08 14:32] MED LIST changes: +LISINOPRIL20 MG PO
--- NOTE | 2020-02-08 15:04 | Emergency Department Note ---
History of Present Illnes History of Present Illness Chief Complaint: General Medicine Complaints History of Present Illness This is a 84 year old male arrives to the ED after sustaining a mechanical fall about 2 days ago complaining of back pain, family wishes for skilled nursing placement, patient is refusing. Family was hoping patient could be placed in the skilled nursing to the ED. Chief Complaint Comment 2 DAYS AGO FELL. TODAY C/O BACK PAIN. FELL BACK WHILE STANDING TO PIVOT AT HOME. PT AAOX4. PT LIVES AT HOME. PT IN NO DISTRESS DURING TRIAGE. 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 Any updates have been documented here. Past Medical History Recent Fever: No Clinical Suspicion of Infectio: No New/Unexplained Change in Ment: No Past Medical History: Hypertension, Cancer, Seizure Disorder Other Medical History: epilepsy [facility] Social History Smoking Cessation: Former smoker Counseling Performed: No Alcohol Use: None Any Illegal Drug Use: No TB Exposure/Symptoms: No Physically hurt or threatened: No Other Last Tetanus: Out of date Last Flu: Y Last Pneumovax: Y Review of Systems Review of Systems Constitutional: Reports no symptoms EENTM: Reports no symptoms Cardiovascular: Reports no symptoms Respiratory: Reports no symptoms Gastrointestinal: Reports no symptoms Genitourinary: Reports no symptoms Musculoskeletal: Reports as per HPI, Reports back pain Integumentary: Reports no symptoms Neurological: Reports no symptoms Psychological: Reports no symptoms Endocrine: Reports no symptoms Hematological/Lymphatic: Reports no symptoms Physical Exam Related Data Allergies: Coded Allergies: No Known Allergies (Unverified , 02/17/17) Triage Vital Signs Vital Signs Date Time Temp Pulse Resp B/P (MAP) Pulse Ox O2 Delivery O2 Flow Rate FiO2 02/08/20 14:33 98.0 78 16 151/76 98 Vital signs reviewed: Yes Physical Exam CONSTITUTIONAL Constitutional: Present well-developed, Present well-nourished HENT HENT: Present normocephalic, Present atraumatic, Present oropharynx clear/moist, Present nose normal HENT L/R: Present left ext ear normal, Present right ext ear normal EYES Eyes: Reports PERRL, Reports conjunctivae normal NECK Neck: Present ROM normal PULMONARY Pulmonary: Present effort normal, Present breath sounds normal CARDIOVASCULAR Cardiovascular: Present regular rhythm, Present heart sounds normal, Present capillary refill normal, Present normal rate GASTROINTESTINAL Abdominal: Present soft, Present nontender, Present bowel sounds normal GENITOURINARY Genitourinary: Present exam deferred SKIN Skin: Present warm, Present dry MUSCULOSKELETAL Musculoskeletal: Present tenderness NEUROLOGICAL Neurological: Present alert, Present oriented x 3, Present no gross motor or sensory deficits PSYCHOLOGICAL Psychological: Present mood/affect normal, Present judgement normal Results Imaging Imaging results reviewed: Yes Impressions IMPRESSION: Loss of vertebral body height at T3, T4 of uncertain age. Old L2 and L3 compression fractures. Multilevel degenerative changes. Diagnostics Tests Diagnostic test(s) reviewed: Yes Assessment & Plan Medical Decision Making MDM 84-year-old male arrives to the ED after mechanical fall, complaining of back pain. X-rays reviewed showed no acute pathology. Patient noted to have age- related changes in his lumbar thoracic spine. Spoke to family by findings. Family consisting patient be transferred to a skilled nursing. Patient has capacity for decision making and does not want to be transferred/admitted to a skilled nursing. Family informed patient discharged home APS contacted. Assessment & Plan Final Impression: (1) Back pain Depart Disposition: HOME, SELF-CARE Last Vital Signs Date Time Temp Pulse Resp B/P (MAP) Pulse Ox O2 Delivery O2 Flow Rate FiO2 02/08/20 14:33 98.0 78 16 151/76 98 Home Meds Reported Medications Lisinopril (PRINAVIL / ZESTRIL) 20 Mg Tablet, 20 MG PO DAILY 10/25/18 Aspirin (ASPIRIN) 81 Mg Tab.chew, 81 MG PO DAILY 09/15/14 Phenytoin Sodium Extended (DILANTIN) 100 Mg Capsule, 300 MG PO hs 07/11/13 Gabapentin (NEURONTIN) 100 Mg Capsule, 200 MG PO HS 07/11/13 Phenobarbital (PHENOBARBITAL) 30 Mg Tablet, 90 MG PO hs 07/11/13 KAREEM DIXON DO Feb 08, 2020 15:04
--- NOTE | 2020-02-08 16:11 | Diagnostic Imaging Report ---
EXAMINATION: THORACIC SP 3V, SP LUMBAR, COMPLETE MIN 4VW INDICATION: Trauma COMPARISON: Lumbar spine CT 05/21/2015 FINDINGS: AP and lateral views of the thoracic spine and AP, lateral and oblique views of the lumbar spine were obtained. Thoracic spine: Loss of vertebral body height at T3 and T4. Remaining vertebral body heights are well preserved. Alignment is anatomic. Multilevel degenerative changes with disc space narrowing and osteophyte formation. Lumbar spine: Old L2 and L3 compression fractures. Remaining vertebral body heights are preserved. Grade 1 retrolisthesis at L2-3. Alignment is otherwise anatomic. Marked multilevel degenerative changes with disc space narrowing and osteophyte formation. No definite spondylolysis. IMPRESSION: Loss of vertebral body height at T3, T4 of uncertain age. Old L2 and L3 compression fractures. Multilevel degenerative changes. Signed by: Kaiden Inman MD on 02/08/2020 4:08 PM
--- NOTE | 2020-02-08 17:17 | NUR ---
EMS CALLED FOR PT [facility]
--- NOTE | 2020-02-08 17:52 | NUR ---
daughter aware pt being discharged and will have direct care provider at home to receive pt
== END 2020-02-08 19:07 | disposition home or self-care (01) ==
LOC: ER 14:39
DX: M54.6 Pain in thoracic spine (principal); M54.5 Low back pain; W18.30XA Fall on same level, unspecified, initial encounter; Y92.008 Other place in unspecified non-institutional (private) residence as the place of occurrence of the external cause; I10 Essential (primary) hypertension; G40.909 Epilepsy, unspecified, not intractable, without status epilepticus; Z85.89 Personal history of malignant neoplasm of other organs and systems
CPT/HCPCS: 72072; 72110; 99284

== ENCOUNTER 2020-03-15 15:58 | Emergency (ER) | payer MEDICARE, OTHER ==
[~2020-03-15] VITALS: Ht 190.5 cm; Wt 79.4 kg
[2020-03-15] MEDS ORDERED: SODIUM CHLORIDE 0.9% 1000ML 1,000 ML IV STA (16:03)
[2020-03-15] MEDS ORDERED: ACETAMINOPHEN 1000 MG/100 ML IV STA (16:05)
--- NOTE | 2020-03-15 16:14 | Emergency Department Note ---
History of Present Illnes History of Present Illness Chief Complaint: COVID PUI History of Present Illness This is a 85 year old male per ems pt [facility] and [facility]2 [facility] o2 sat 84% pt normally a&o x 2 but now a&o x 1 states last covid swab negative pt o2 sat on arrival 97% ra seen by dr olsen . He is AAOx1 now, typically he was AAOx2 . Historian: Material Reclaimer/EMS Arrival Mode: EMS History limited by: condition of the patient Process Checker Required: No Onset (how long ago): day(s) Radiation: Reports non-radiation Severity: moderate Onset quality: gradual Duration (how long): day(s) Progression: worsening Chronicity: new Relieving factors: none Exacerbating factors: none Associated symptoms: Reports other Treatments prior to arrival: none Past Medical/Family History Physician Review I have reviewed the patient's past medical and family history. Any updates have been documented here. Past Medical History Recent Fever: Yes Clinical Suspicion of Infectio: Yes New/Unexplained Change in Ment: No Past Medical History: Hypertension, Cancer, Seizure Disorder Other Medical History: epilepsy neuropathy Right arm injury [employer] [place] Social History Smoking Cessation: Unknown if ever smoked Physically hurt or threatened: No Other Last Tetanus: Out of date Is patient up to date on immun: No Review of Systems ROS Narrative Unable to obtain ROS: Unable to obtain due to, altered mental status Review of Systems Constitutional: Reports fever, Reports malaise, Reports weakness EENTM: Reports no symptoms Cardiovascular: Reports no symptoms, Reports as per HPI Respiratory: Reports dyspnea Gastrointestinal: Reports no symptoms Genitourinary: Reports no symptoms Musculoskeletal: Reports no symptoms Integumentary: Reports no symptoms Neurological: Reports no symptoms Psychological: Reports no symptoms Endocrine: Reports no symptoms Hematological/Lymphatic: Reports no symptoms Physical Exam Related Data Allergies: Coded Allergies: No Known Allergies (Unverified , 02/17/17) Triage Vital Signs Vital Signs Date Time Temp Pulse Resp B/P (MAP) Pulse Ox O2 Delivery O2 Flow Rate FiO2 03/15/20 16:00 101.4 96 24 118/67 97 Room Air Vital signs reviewed: Yes (saturation 85 percent on RA) Physical Exam CONSTITUTIONAL Constitutional: Present well-developed, Present cachectic, Present distressed HENT HENT: Present normocephalic, Present atraumatic, Present mucosae dry, Present nose normal HENT L/R: Present left ext ear normal, Present right ext ear normal EYES Eyes: Reports PERRL, Reports conjunctivae normal NECK Neck: Present ROM normal PULMONARY Pulmonary: Present effort normal, Present respiratory distress, Present rales, Present other (tachypnic) CARDIOVASCULAR Cardiovascular: Present regular rhythm, Present heart sounds normal, Present capillary refill normal, Present tachycardia GASTROINTESTINAL Abdominal: Present soft, Present nontender, Present bowel sounds normal GENITOURINARY Genitourinary: Present exam deferred SKIN Skin: Present warm, Present dry MUSCULOSKELETAL Musculoskeletal: Present edema NEUROLOGICAL Neurological: Present alert, Present other (bed ridden) PSYCHOLOGICAL Psychological: Present other (Unable to assess) Results Laboratory Lab results reviewed: Yes Imaging Imaging results reviewed: Yes Imaging Comments Right middle lobe pna Diagnostics Tests Diagnostic test(s) reviewed: Yes Procedures 12 Lead ECG Interpretation ECG Interpretation : ECG: ECG 1 Process Checker: Interpreted by ED physician Date: Mar 15, 2020 Time: 15:55 Prior ECG tracings: reviewed Rhythm: sinus rhythm Rate: normal QRS axis: normal ST segments normal: Yes T waves normal: Yes Clinical Impression: normal ECG Assessment & Plan Medical Decision Making MDM pneumonia, covid Reassessment Reassessment time: 17:30 Reassessment doing better Assessment & Plan Final Impression: (1) Respiratory distress (2) Right middle lobe pneumonia (3) Sepsis (4) Altered mental status Depart Disposition: ADMITTED Last Vital Signs Date Time Temp Pulse Resp B/P (MAP) Pulse Ox O2 Delivery O2 Flow Rate FiO2 03/15/20 16:00 101.4 96 24 118/67 97 Room Air Home Meds Reported Medications Lisinopril (PRINAVIL / ZESTRIL) 20 Mg Tablet, 20 MG PO DAILY 10/25/18 Aspirin (ASPIRIN) 81 Mg Tab.chew, 81 MG PO DAILY 09/15/14 Phenytoin Sodium Extended (DILANTIN) 100 Mg Capsule, 300 MG PO hs 07/11/13 Gabapentin (NEURONTIN) 100 Mg Capsule, 200 MG PO HS 07/11/13 Phenobarbital (PHENOBARBITAL) 30 Mg Tablet, 90 MG PO hs 07/11/13 Medications in the ED Dexamethasone Sodium Phosphate 10 mg ONCE ONCE IV ; Start 03/15/20 at 16:15; Stop 03/15/20 at 16:16; Status UNV Cefepime HCl 2 gm ONCE ONCE IV ; Start 03/15/20 at 16:15; Stop 03/15/20 at 16:16; Status UNV Sodium Chloride 1,000 ml @ 0 mls/hr Q0M STAT IV ; Start 03/15/20 at 16:03; Stop 03/15/20 at 16:06; Status DC Cefepime HCl 100 ml @ 100 mls/hr ONCE ONCE IV ; Start 03/15/20 at 16:30; Stop 03/15/20 at 17:29 Dexamethasone Sodium Phosphate 10 mg ONCE ONCE IV ; Start 03/15/20 at 16:15; Stop 03/15/20 at 16:16 Physician Attestation Provider Attestation case discussed with ALEXUS Kasper MD Mar 15, 2020 16:14
[2020-03-15] MEDS ORDERED: DEXAMETHASONE SOD PHOS 10 MG/1 ML VIAL IV ONE (16:15)
[2020-03-15] MEDS ORDERED: CEFEPIME HCL 2 GM VIAL IV ONE (16:15)
[2020-03-15] MEDS ORDERED: DEXAMETHASONE SOD PHOS INJ 4 MG/ML VIAL IV ONE (16:15)
[2020-03-15 16:18] LABS: BASOPHILS % 0.2 % (0.0-1.0); EOSINOPHILS % 0.2 % (0.0-6.0); HEMATOCRIT 33.4 % (38.2-49.6); HEMOGLOBIN 11.4 g/dL (14.0-18.0); LYMPHOCYTES # (AUTO) 0.5 (1.0-3.2); LYMPHOCYTES % 8.3 % (18.0-39.1); MEAN CORPUSCULAR HEMOGLOBIN 32.7 pg (28-32); MEAN CORPUSCULAR HGB CONC 34.1 g/dL (31-35); MEAN CORPUSCULAR VOLUME 95.7 fL (81-99); MONOCYTES # (AUTO) 0.4 (0.2-0.8); MONOCYTES % 6.4 % (4.4-11.3); NEUTROPHILS # (AUTO) 5.3 (2.1-6.9); NEUTROPHILS % 84.6 % (38.7-80.0); PLATELET COUNT 250 x10e3/uL (140-360); RED BLOOD COUNT 3.49 x10e6/uL (4.3-5.7); RED CELL DISTRIBUTION WIDTH 13.6 % (11.7-14.4)
[2020-03-15 16:28] LABS: INR 1.19; PROTHROMBIN TIME 15.8 seconds (11.9-14.5)
[2020-03-15 16:29] LABS: PARTIAL THROMBOPLASTIN TIME 38.3 seconds (23.8-35.5)
[2020-03-15] MEDS ORDERED: CEFEPIME 2 GM/NS 0.9% 100 ML 100 ML IV ONE (16:30)
[2020-03-15 16:35] LABS: ALANINE AMINOTRANSFERASE 14 IU/L (0-55); ALBUMIN 3.2 g/dL (3.5-5.0); ALBUMIN/GLOBULIN RATIO 0.9 (0.8-2.0); ALKALINE PHOSPHATASE 80 IU/L (40-150); ANION GAP 16.9 mmol/L (8-16); BLOOD UREA NITROGEN 19 mg/dL (7-26); BUN/CREATININE RATIO 24 (6-25); CALCIUM 8.4 mg/dL (8.4-10.2); CARBON DIOXIDE 20 mmol/L (22-29); CHLORIDE 101 mmol/L (98-107); CREATININE, SERUM 0.79 mg/dL (0.72-1.25); EST GLOMERULAR FILTRATION RATE > 60 ML/MIN (60-); GLUCOSE 85 mg/dL (74-118); POTASSIUM 3.9 mmol/L (3.5-5.1); SODIUM 134 mmol/L (136-145)
[2020-03-15 17:03] LABS: BILIRUBIN,URINE SMALL (NEGATIVE); CLARITY,URINE SL CLOUDY (CLEAR); COLOR,URINE YELLOW (YELLOW); KETONES,URINE TRACE (NEGATIVE); LEUKOCYTE ESTERASE ,URINE NEGATIVE (NEGATIVE); NITRITE,URINE NEGATIVE (NEGATIVE); PROTEIN,URINE DIPSTICK 1+ (NEGATIVE); URINE UROBILINOGEN 1 mg/dL (0.2 - 1)
[2020-03-15 17:18] LABS: BACTERIA,URINE MODERATE /HPF; RBC,URINE 0-5 /HPF (0-5)
--- NOTE | 2020-03-15 17:32 | Diagnostic Imaging Report ---
Examination: Single AP view of the chest. COMPARISON: None. INDICATION: Sepsis with for pneumonia, effusions DISCUSSION: Lines/tubes: None. Lungs: Age-related change. Bibasilar opacities, greater in the right infrahilar region. Pleura: Possible trace effusions. Heart and mediastinum: The heart and the mediastinum are unremarkable. Bones and soft tissues: No acute bony abnormalities. IMPRESSION: Bibasilar airspace opacities which may reflect atelectasis and/or infection. Signed by: Dr. Stefan Michaels M.D. on 03/15/2020 5:28 PM
[2020-03-15] MEDS ORDERED: ASPIRIN 81 MG CHEW TAB PO ONE (18:00)
[2020-03-15] MEDS ORDERED: SODIUM CHLORIDE 0.9% 1000ML 1,000 ML IV SCH (18:00)
[2020-03-15] MEDS ORDERED: VANCOMYCIN HCL 1GM/NS 250 ML BAG IV SCH (18:00)
[2020-03-15] MEDS ORDERED: VANCOMYCIN 1GM/NS 250 ML 250 ML IV SCH (18:00)
[2020-03-15 19:06] LABS: CREATINE KINASE MB 1.4 ng/mL (0-5.0)
[2020-03-16] MEDS ORDERED: CEFEPIME HCL 2 GM/SOD CHL 0.9% 100 ML BAG IV SCH (05:00)
[2020-03-16] MEDS ORDERED: CEFEPIME 2 GM/NS 0.9% 100 ML 100 ML IV SCH (05:00)
[2020-03-16] MEDS ORDERED: ENOXAPARIN SOD INJ 40 MG/0.4 ML SYR SC SCH (09:00)
== END 2020-03-15 20:10 ==
LOC: ER 16:20
DX: U07.1 COVID-19 (principal); A41.9 Sepsis, unspecified organism; J18.9 Pneumonia, unspecified organism; R50.9 Fever, unspecified; R06.03 Acute respiratory distress; R41.82 Altered mental status, unspecified; I10 Essential (primary) hypertension; G40.909 Epilepsy, unspecified, not intractable, without status epilepticus; Z85.89 Personal history of malignant neoplasm of other organs and systems
CPT/HCPCS: 36415; 71045; 80053; 81001; 82550; 82553; 83605; 84484; 85025; 85610; 85730; 87040; 87086; 93005; 99284; J0131; J1100; J3370; J7030; U0002

== ENCOUNTER 2020-03-19 02:10 | Inpatient (IN) | payer MEDICARE, OTHER ==
[2020-03-19] VITALS (19 sets, daily range): BP systolic 80–150; BP diastolic 47–91
[~2020-03-19] VITALS: Ht 190.5 cm; Wt 72.7 kg
[2020-03-19] MEDS ORDERED: ACETAMINOPHEN 325 MG SUPP PR ONE (02:15)
[2020-03-19] MEDS ORDERED: ACETAMINOPHEN 650 MG SUPP PR ONE (02:25)
[2020-03-19] MEDS ORDERED: AZITHROMYCIN 500MG/NS 250 ML 250 ML IV ONE (02:30)
[2020-03-19] MEDS ORDERED: CEFTRIAXONE SOD 1 GM/NS 50 ML 50 ML IV ONE (02:30)
[2020-03-19] MEDS ORDERED: DEXAMETHASONE SOD PHOS 10 MG/1 ML VIAL IV ONE (02:30)
[2020-03-19 02:37] LABS: BASOPHILS % 0.2 % (0.0-1.0); HEMATOCRIT 35.6 % (38.2-49.6); HEMOGLOBIN 11.9 g/dL (14.0-18.0); LYMPHOCYTES # (AUTO) 0.8 (1.0-3.2); LYMPHOCYTES % 12.2 % (18.0-39.1); MEAN CORPUSCULAR HEMOGLOBIN 32.2 pg (28-32); MEAN CORPUSCULAR HGB CONC 33.4 g/dL (31-35); MEAN CORPUSCULAR VOLUME 96.5 fL (81-99); MONOCYTES # (AUTO) 0.3 (0.2-0.8); MONOCYTES % 5.3 % (4.4-11.3); NEUTROPHILS # (AUTO) 5.3 (2.1-6.9); NEUTROPHILS % 81.5 % (38.7-80.0); PLATELET COUNT 263 x10e3/uL (140-360); RED BLOOD COUNT 3.69 x10e6/uL (4.3-5.7)
[2020-03-19 02:47] LABS: INR 1.16; PROTHROMBIN TIME 15.4 seconds (11.9-14.5)
[2020-03-19 02:48] LABS: PARTIAL THROMBOPLASTIN TIME 41.2 seconds (23.8-35.5)
[2020-03-19 02:57] LABS: ALANINE AMINOTRANSFERASE 34 IU/L (0-55); ALBUMIN 2.5 g/dL (3.5-5.0); ALBUMIN/GLOBULIN RATIO 0.6 (0.8-2.0); ALKALINE PHOSPHATASE 56 IU/L (40-150); ANION GAP 20.2 mmol/L (8-16); BLOOD UREA NITROGEN 31 mg/dL (7-26); BUN/CREATININE RATIO 28 (6-25); CALCIUM 8.3 mg/dL (8.4-10.2); CARBON DIOXIDE 18 mmol/L (22-29); CHLORIDE 101 mmol/L (98-107); CREATINE KINASE 345 IU/L (30-200); CREATININE, SERUM 1.11 mg/dL (0.72-1.25); EST GLOMERULAR FILTRATION RATE > 60 ML/MIN (60-); GLUCOSE 96 mg/dL (74-118); POTASSIUM 4.2 mmol/L (3.5-5.1); SODIUM 135 mmol/L (136-145)
[2020-03-19 03:11] LABS: BILIRUBIN,URINE NEGATIVE (NEGATIVE); CLARITY,URINE SL CLOUDY (CLEAR); COLOR,URINE YELLOW (YELLOW); KETONES,URINE 1+ (NEGATIVE); LEUKOCYTE ESTERASE ,URINE NEGATIVE (NEGATIVE); NITRITE,URINE NEGATIVE (NEGATIVE); PROTEIN,URINE DIPSTICK >=300 (NEGATIVE); URINE UROBILINOGEN 0.2 mg/dL (0.2 - 1)
[2020-03-19] MEDS ORDERED: DEXAMETHASONE SOD PHOS INJ 4 MG/ML VIAL ONE (03:13)
--- NOTE | 2020-03-19 03:16 | Emergency Department Note ---
History of Present Illnes History of Present Illness Chief Complaint: COVID PUI History of Present Illness This is a 85 year old male brought in by [facility] from [facility] after patient tested positive for Covid today. Test was done on 03/14/20. Per [facility], patient became lethargic and tachypneic at about 0100. Patient o2 sats on room air were in the 80's. EMS placed patient on 15L nonrebreather. Patient lethargic and responds to painful stimuli. O2 saturation 93-95% on nonrebreather. EMS REPORTS STAFF AT [facility] STATES PT HAS HAD COVID SYMPTOMS SINCE 03/14/20 Historian: Health And Safety Advisor/EMS Arrival Mode: [facility] History limited by: condition of the patient (PT IS LETHARGIC ) Onset (how long ago): day(s) (4) Location: CHEST Quality: COUGH, FEVER, SOB Radiation: Reports non-radiation Severity: severe Duration (how long): day(s) (4) Progression: worsening Context: Reports recent illness (POSITIVE COVID 19 TEST HERE AND AT [facility]) Relieving factors: none Exacerbating factors: none Past Medical/Family History Physician Review I have reviewed the patient's past medical and family history. Any updates have been documented here. Past Medical History Recent Fever: Yes Clinical Suspicion of Infectio: Yes New/Unexplained Change in Ment: Yes Past Medical History: Hypertension, Cancer, Seizure Disorder Other Medical History: epilepsy neuropathy Right arm injury [employer] [place] Past Surgical History: None Social History Unable to obtain PSH: altered mental status Other Last Tetanus: Out of date Review of Systems ROS Narrative Unable to obtain ROS: Unable to obtain due to, altered mental status Physical Exam Related Data Allergies: Coded Allergies: No Known Allergies (Unverified , 02/17/17) Triage Vital Signs Vital Signs Date Time Temp Pulse Resp B/P (MAP) Pulse Ox O2 Delivery O2 Flow Rate FiO2 03/19/20 02:10 103.0 100 29 114/70 93 15.0 Vital signs reviewed: Yes Physical Exam CONSTITUTIONAL Constitutional: Present well-developed, Present well-nourished HENT HENT: Present normocephalic, Present atraumatic, Present oropharynx clear/moist, Present nose normal HENT L/R: Present left ext ear normal, Present right ext ear normal EYES Eyes: Reports PERRL, Reports conjunctivae normal NECK Neck: Present ROM normal PULMONARY Pulmonary: Present effort normal, Present respiratory distress (TACHPNEA RATE 26), Present rhonchi (THROUGH OUT) CARDIOVASCULAR Cardiovascular: Present regular rhythm, Present heart sounds normal, Present capillary refill normal, Present normal rate GASTROINTESTINAL Abdominal: Present soft, Present nontender, Present bowel sounds normal GENITOURINARY Genitourinary: Present exam deferred SKIN Skin: Present warm, Present dry MUSCULOSKELETAL Musculoskeletal: Present ROM normal NEUROLOGICAL Neurological: Present other (LETHARGIC, WILL OPEN EYES IF ASKED, BUT WILL NOT ANSWER QUESTIONS) PSYCHOLOGICAL Psychological: Present other (UNABLE TO DETERMINE DUE TO PT IS LETHARGIC) Results Laboratory Result Diagram: 03/19/207 03/19/207 Laboratory Laboratory Tests Test 03/19/20 02:17 White Blood Count 6.45 x10e3/uL (4.8-10.8) Red Blood Count 3.69 x10e6/uL (4.3-5.7) Hemoglobin 11.9 g/dL (14.0-18.0) Hematocrit 35.6 % (38.2-49.6) Mean Corpuscular Volume 96.5 fL (81-99) Mean Corpuscular Hemoglobin 32.2 pg (28-32) Mean Corpuscular Hemoglobin Concent 33.4 g/dL (31-35) Red Cell Distribution Width 14.0 % (11.7-14.4) Platelet Count 263 x10e3/uL (140-360) Neutrophils (%) (Auto) 81.5 % (38.7-80.0) Lymphocytes (%) (Auto) 12.2 % (18.0-39.1) Monocytes (%) (Auto) 5.3 % (4.4-11.3) Eosinophils (%) (Auto) 0.0 % (0.0-6.0) Basophils (%) (Auto) 0.2 % (0.0-1.0) Neutrophils # (Auto) 5.3 (2.1-6.9) Lymphocytes # (Auto) 0.8 (1.0-3.2) Monocytes # (Auto) 0.3 (0.2-0.8) Eosinophils # (Auto) 0.0 (0.0-0.4) Basophils # (Auto) 0.0 (0.0-0.1) Absolute Immature Granulocyte (auto 0.05 x10e3/uL (0-0.1) Prothrombin Time 15.4 seconds (11.9-14.5) Prothromb Time International Ratio 1.16 Activated Partial Thromboplast Time 41.2 seconds (23.8-35.5) Sodium Level 135 mmol/L (136-145) Potassium Level 4.2 mmol/L (3.5-5.1) Chloride Level 101 mmol/L (98-107) Carbon Dioxide Level 18 mmol/L (22-29) Anion Gap 20.2 mmol/L (8-16) Blood Urea Nitrogen 31 mg/dL (7-26) Creatinine 1.11 mg/dL (0.72-1.25) Estimat Glomerular Filtration Rate > 60 ML/MIN (60-) BUN/Creatinine Ratio 28 (6-25) Glucose Level 96 mg/dL (74-118) Calcium Level 8.3 mg/dL (8.4-10.2) Total Bilirubin 0.3 mg/dL (0.2-1.2) Aspartate Amino Transf (AST/SGOT) 92 IU/L (5-34) Alanine Aminotransferase (ALT/SGPT) 34 IU/L (0-55) Alkaline Phosphatase 56 IU/L (40-150) Creatine Kinase 345 IU/L (30-200) Total Protein 6.7 g/dL (6.5-8.1) Albumin 2.5 g/dL (3.5-5.0) Globulin 4.2 g/dL (2.3-3.5) Albumin/Globulin Ratio 0.6 (0.8-2.0) Lab results reviewed: Yes Imaging Imaging results reviewed: Yes Impressions Procedure: [id number] DX/CHEST SINGLE (PORTABLE) Exam Date: 03/19/20 Exam Time: 0300 REPORT STATUS: Signed EXAMINATION: CHEST SINGLE (PORTABLE) INDICATION: Fever hypoxia positive Covid COMPARISON: Chest x-ray 03/15/2020 FINDINGS: TUBES and LINES: None. LUNGS: Normal lung volumes. Hazy opacities in the bilateral mid and lower lungs, left greater than right. PLEURA: No pleural effusion or pneumothorax. HEART AND MEDIASTINUM: The cardiomediastinal silhouette is unremarkable. Aortic calcifications. BONES AND SOFT TISSUES: Degenerative changes. No acute osseous lesion. Soft tissues are unremarkable. UPPER ABDOMEN: No free air under the diaphragm. IMPRESSION: Findings of multifocal pneumonia. Signed by: Michele Lewis DO on 03/19/2020 3:29 AM Dictated By: MICHELE LEWIS DO [id number] Procedures 12 Lead ECG Interpretation ECG Interpretation : ECG: ECG 1 Atomic Physics Professor: Interpreted by ED physician Date: Mar 19, 2020 Time: 02:42 Rhythm: sinus rhythm Rate: normal BPM: 96 QRS axis: normal ST segments normal: Yes T waves normal: Yes Other findings: no other findings Clinical Impression: normal ECG Critical Care Time Total Critical Care Time (min): 31 Critcal care necessary due to: respiratory failure Critcal care time spent by me: develop tx plan w patient/surrogate, discussion w consultants, evaluation patient response to tx, examination of patient, obtaining hx from patient/surrogate, order/perform tx or interventions, order/review laboratory studies, order/review radiographic studies, pulse oximetry, re-evaluation of patient condition Assessment & Plan Medical Decision Making MDM PT FROM [facility] WITH FEVER, SOB, HYPOXIA, AND A POSITIVE COVID 19 TEST PT ON OXYGEN VIA NR AT 100%, SATURATION 99%, PT SWITCHED TO HIGH FLOW NC AT 10LPM, OXYGEN SATURATION NOW 97% CBC, CMP, BLOOD CULTURE, UA, URINE CULTURE, EKG, CARDIAC ENZYMES, CXR ORDERED TO EVAL FOR VIRAL PNEUMONIA, ELECTROLYTE ABNORMALITY, MYOCARDIAL INFARCTION, UTI, ROCEPHIN 1 GRAM IV ORDERED ZITHROMAX 500 MG IV ORDERED TYLENOL SUPP 950 MG [place] ORDERED DEXAMETHASONE 6 MG IV ORDERED I SPOKE WITH Aram FAN AND LEFT A MESSAGE FOR DR MARINELLI. Reassessment Reassessment time: 03:49 Reassessment PT ON HIGH FLOW 02 VIA NC AT 10LPM, OXYGEN SATURATION 97%, rr 23, pt still lethargic. Assessment & Plan Final Impression: (1) COVID-19 (2) Fever (3) Viral pneumonia (4) Hypoxemia requiring supplemental oxygen (5) Altered mental status Depart Disposition: ADMITTED Last Vital Signs Date Time Temp Pulse Resp B/P (MAP) Pulse Ox O2 Delivery O2 Flow Rate FiO2 03/19/20 02:10 103.0 100 29 114/70 93 15.0 Home Meds Reported Medications Lisinopril (PRINAVIL / ZESTRIL) 20 Mg Tablet, 20 MG PO DAILY 10/25/18 Aspirin (ASPIRIN) 81 Mg Tab.chew, 81 MG PO DAILY 09/15/14 Phenytoin Sodium Extended (DILANTIN) 100 Mg Capsule, 300 MG PO hs 07/11/13 Gabapentin (NEURONTIN) 100 Mg Capsule, 200 MG PO HS 07/11/13 Phenobarbital (PHENOBARBITAL) 30 Mg Tablet, 90 MG PO hs 07/11/13 Medications in the ED Acetaminophen 975 mg ONCE ONCE [place] Last administered on 03/19/20at 02:35; Admin Dose 975 MG; Start 03/19/20 at 02:15; Stop 03/19/20 at 02:17; Status DC Acetaminophen 650 mg STK-MED ONCE [place] ; Start 03/19/20 at 02:25; Stop 03/19/20 at 02:20; Status DC Ceftriaxone Sodium 50 ml @ 100 mls/hr ONCE ONCE IV ; Start 03/19/20 at 02:30; Stop 03/19/20 at 02:59; Status DC Azithromycin 250 ml @ 200 mls/hr NOW ONCE IV ; Start 03/19/20 at 02:30; Stop 03/19/20 at 03:44 Dexamethasone Sodium Phosphate 6 mg ONCE ONCE IV ; Start 03/19/20 at 02:30; Stop 03/19/20 at 02:42; Status DC DEE SALAZAR MD Mar 19, 2020 03:16
--- NOTE | 2020-03-19 03:18 | NUR ---
RT called for ABG at this time.
[2020-03-19 03:21] LABS: AMORPHOUS SEDIMENT,URINE MODERATE (FEW); BACTERIA,URINE FEW /HPF; EPITHELIAL CELLS,URINE RARE /LPF; WBC,URINE (MAN) 0-5 /HPF (0-5)
--- NOTE | 2020-03-19 03:32 | Diagnostic Imaging Report ---
EXAMINATION: CHEST SINGLE (PORTABLE) INDICATION: Fever hypoxia positive Covid COMPARISON: Chest x-ray 03/15/2020 FINDINGS: TUBES and LINES: None. LUNGS: Normal lung volumes. Hazy opacities in the bilateral mid and lower lungs, left greater than right. PLEURA: No pleural effusion or pneumothorax. HEART AND MEDIASTINUM: The cardiomediastinal silhouette is unremarkable. Aortic calcifications. BONES AND SOFT TISSUES: Degenerative changes. No acute osseous lesion. Soft tissues are unremarkable. UPPER ABDOMEN: No free air under the diaphragm. IMPRESSION: Findings of multifocal pneumonia. Signed by: Oskar Lewis DO on 03/19/2020 3:29 AM
--- NOTE | 2020-03-19 03:52 | NUR ---
Patient had second large bowel movement. New brief applied at this time.
[2020-03-19] MEDS ORDERED: DEXAMETHASONE 10MG/ML PF INJ IV SCH (04:00)
[2020-03-19] MEDS ORDERED: CEFTRIAXONE SOD 1 GRAM/0.9% SOD CHL 50ML BAG IV SCH (04:00)
[2020-03-19] MEDS ORDERED: SODIUM CHLORIDE 0.9% 1000ML 1,000 ML IV ONE ×2 (04:00→04:45)
[2020-03-19] MEDS ORDERED: ACETAMINOPHEN 650 MG SUPP PR PRN (04:00)
[2020-03-19] MEDS ORDERED: AZITHROMYCIN 500MG/SOD CHL 0.9% 250ML BAG IV SCH (04:00)
[2020-03-19 04:12] LABS: ABG HCO3 20 mmol/L (22-26); ABG PCO2 35 mmHg (35-45); ABG PH 7.37 (7.35-7.45); ABG PO2 82 mmHg (80-105); ABG TCO2 21
[2020-03-19] MEDS ORDERED: CEFEPIME-D1 GM/50 ML IVP (04:59)
[2020-03-19] MEDS ORDERED: MECLIZINE HCL12.5 MG PO (04:59)
--- NOTE | 2020-03-19 06:41 | NUR ---
PATIENT WITH OCCASIONAL AGONAL BREATHING, VERY POSITIONAL AND REQUIRING STERNAL RUB AT TIMES TO INITIATE BREATH. I HAVE REQUESTED RT TO ASSESS, QUESTIONING CPAP/BIPAP FOR APNEA.
--- NOTE | 2020-03-19 09:30 | NUR ---
Bookmaker Map called pt's , Gerardo, to provided spiritual/emotional support. No answer. Left message on voicemail. Will follow up as able. [facility] O: [phone]
--- NOTE | 2020-03-19 10:17 | Consultation ---
DATE OF CONSULTATION: Pulmonary Critical Care Consultation CHIEF COMPLAINT: Dyspnea and worsening oxygen saturations. HISTORY OF PRESENT ILLNESS: The patient is an 85-year-old man with a history of diabetes and polyneuropathy. Apparently, he had a positive COVID test as an outpatient while at a nursing facility. He became more lethargic and had more tachypnea. When he came to the emergency department, he was saturating in the low 80s. He required a non-rebreather. There are no reports of fever. He is not having any nausea or vomiting. PAST MEDICAL HISTORY: 1. Seizure disorder. 2. Hypertension. 3. Polyneuropathy. 4. Squamous cell carcinoma from an unspecified site. PAST SURGICAL HISTORY: Not obtainable. FAMILY HISTORY: Noncontributory. SOCIAL HISTORY: The patient stays at a local SNF. He is not an active smoker. He is not an active drinker. REVIEW OF SYSTEMS: The patient did not have any fevers. He is not having any headache. He had decreased mental status. There were complaints of worsening dyspnea and tachypnea. He did not report any chest pain. There was no reported nausea or vomiting. PHYSICAL EXAMINATION: VITAL SIGNS: The patient is now saturating 100% on a non-rebreather. The respiratory rate is normal. The pulse is 73. Blood pressure is 138/81. HEENT: No facial swelling or erythema. CARDIAC: Regular rate and rhythm with normal S1, S2. LUNGS: Auscultation of lungs reveals crackles at the bases. There is no wheezing. ABDOMEN: Soft, nontender. There is no rebound or guarding. EXTREMITIES: Some atrophy in the right upper extremity. NEUROLOGICAL: The patient to be confused. LABORATORY DATA: White blood cell count is 6.4 and hemoglobin is 11.9. The platelet count is 263. The BUN to creatinine ratio is 31 to 1.11. Carbon dioxide is 18. Albumin is 2.5. AST is 92. IMPRESSION: 1. Acute respiratory failure. 2. Viral pneumonia and coronavirus disease-19 infection. 3. Anion gap metabolic acidosis. 4. Acute kidney injury. 5. History of seizure disorder. 6. Hypertension. 7. Neuropathy. PLAN: 1. Wean oxygen as tolerated. 2. The patient will require IV antibiotics to cover for any superimposed bacterial pneumonia. 3. Intravenous fluids with supplemental bicarbonate. 4. Dexamethasone. 5. Prognosis is poor. MD YOLANDA Mauricio/ANDRE /[id number]
[2020-03-19 10:44] LABS: CREATINE KINASE MB 4.2 ng/mL (0-5.0)
[2020-03-19] MEDS ORDERED: FENTANYL CITRATE INJ 2,000 MCG in SODIUM CHLORIDE 0.9% 250ML 210 ML IV PRN (10:45)
[2020-03-19] MEDS ORDERED: MIDAZOLAM HCL 50 MG in SODIUM CHLORIDE 0.9% 100 ML 90 ML IV PRN (10:45)
[2020-03-19] MEDS ORDERED: MIDAZOLAM HCL 5MG/ML 10ML VIAL 100 ML IV ONE (10:56)
[2020-03-19] MEDS ORDERED: MIDAZOLAM HCL 5MG/ML 10ML VIAL 100 ML IV PRN (11:00)
[2020-03-19] MEDS ORDERED: FENTANYL 2000MCG/NS 250 250 ML IV PRN (11:00)
[2020-03-19] MEDS ORDERED: SODIUM BICARBONATE 8.4% 100 ML in DEXTROSE 5% 1,000 ML IV ONE (11:00)
[2020-03-19] MEDS ORDERED: LACTATED RINGER'S 1,000 ML ONE (11:31)
[2020-03-19] MEDS ORDERED: NOREPINEPHRINE 8 MG/D5W 250 ML 250 ML IV PRN (11:45)
--- NOTE | 2020-03-19 11:49 | Diagnostic Imaging Report ---
EXAMINATION: CHEST SINGLE (PORTABLE), ABDOMEN-1VIEW (KUB) INDICATION: Intubation, NG tube placement COMPARISON: Chest radiograph 03/15/2020 FINDINGS: LINES/TUBES:Endotracheal tube terminates at the syeda. Enteric tube terminates in the stomach. LUNGS:The lungs are well-inflated. There is perihilar fullness and indistinctness of the pulmonary vasculature. Interval increase in left lower lung hazy opacities. PLEURA:No pleural effusion or pneumothorax. MEDIASTINUM:The cardiomediastinal silhouette appears unchanged in size and shape. Atherosclerotic calcifications of the thoracic aorta. BONES/SOFT TISSUES:No acute osseous injury. ABDOMEN:No free air under the diaphragm. IMPRESSION: Endotracheal tube terminates at the syeda. Recommend withdrawal by 3 to 4 cm. Enteric tube terminates in the stomach. Interval increase in left lung hazy opacities. Signed by: Kaiden Inman MD on 03/19/2020 11:46 AM
[2020-03-19] MEDS ORDERED: LACTATED RINGER'S 500 ML IV ONE (12:15)
--- NOTE | 2020-03-19 12:23 | Operative Report ---
DATE OF PROCEDURE: SURGEON: Mauro Guzmán MD PROCEDURE: Endotracheal intubation with GlideScope. PREOPERATIVE DIAGNOSIS: Respiratory failure. POSTOPERATIVE DIAGNOSIS: Respiratory failure. CONSENT: Consent was deemed emergent due to unresponsiveness and agonal bleeding. MEDICATIONS: Versed 1 mg. DESCRIPTION OF PROCEDURE: The patient was placed in a supine position. He was preoxygenated with an Ambu bag and the oral airway. Saturations were increased to 90%. A 4-0 Mac blade was used to visualize glottis. I was unable to pass an 8.0 endotracheal tube through the glottis. A 7.5 endotracheal tube was then used to pass through the glottis. There was good CO2 return and equal breath sounds bilaterally. Saturations remained in the high 80s. COMPLICATIONS: None. ESTIMATED BLOOD LOSS: None. Mauro Guzmán MD [facility] /[id number]
--- NOTE | 2020-03-19 19:54 | Consultation ---
DATE OF CONSULTATION: HISTORY OF PRESENT ILLNESS: This is an 85-year-old male, who has history of diabetes, history of neuropathy, had positive COVID as an outpatient at the facility. The patient comes in with altered mental status, hypoxemic. He is on non-rebreather. The patient does not provide any meaningful information as he was taken mainly from the chart. The patient was admitted and I was asked to see him. PAST MEDICAL HISTORY: As above. PAST SURGICAL HISTORY: Could not be obtained. REVIEW OF SYSTEMS: Could not be obtained. He is very weak. LABORATORY DATA: His COVID-19 was positive. Sodium 135, potassium 4.2 with creatinine 1.1. Liver enzyme, AST 92, albumin 2.5. PHYSICAL EXAMINATION: GENERAL: He is currently in the intensive care unit, intubated. HEENT: Normocephalic. NECK: Supple. CHEST: A few crackles. HEART: S1, S2. ABDOMEN: Soft. Bowel sounds present. No tenderness. EXTREMITIES: No edema. IMPRESSION: Respiratory failure, coronavirus disease 2019. Agree with Rocephin. Agree with azithromycin. We will put him on Decadron 6 mg daily for 10 days, oxygen as needed. Lovenox 0.5 mg/kg q.12 hours. Prognosis is guarded. We will follow. Chelsi Spivey MD [facility] /[id number]
[2020-03-19] MEDS ORDERED: GABAPENTIN 100 MG CAP PO SCH (21:00)
[2020-03-19] MEDS ORDERED: PHENYTOIN SODIUM EXT REL 100 MG CAP PO SCH (21:00)
[2020-03-19] MEDS: ENOXAPARIN SOD INJ 40 MG/0.4 ML SYR SC SCH (21:16)
[2020-03-20] VITALS (20 sets, daily range): BP systolic 84–147; BP diastolic 44–92
[2020-03-20] MEDS ORDERED: NOREPINEPHRINE 8 MG/D5W 250 ML 250 ML IV SCH (00:45)
[2020-03-20] MEDS ORDERED: DEXAMETHASONE SOD PHOS INJ 4 MG/ML VIAL IV SCH (01:00)
[2020-03-20] MEDS ORDERED: CEFTRIAXONE SOD 1 GM/NS 50 ML 50 ML IV SCH (02:00)
[2020-03-20] MEDS ORDERED: AZITHROMYCIN 500MG/NS 250 ML 250 ML IV SCH (03:00)
[2020-03-20] MEDS ORDERED: LACTATED RINGER'S 1,000 ML INJ ONE (05:15)
[2020-03-20 05:24] LABS: BASOPHILS # (AUTO) 0.1 (0.0-0.1); BASOPHILS % 0.2 % (0.0-1.0); EOSINOPHILS % 0.1 % (0.0-6.0); HEMATOCRIT 39.3 % (38.2-49.6); HEMOGLOBIN 12.9 g/dL (14.0-18.0); LYMPHOCYTES # (AUTO) 1.3 (1.0-3.2); MEAN CORPUSCULAR HEMOGLOBIN 31.9 pg (28-32); MEAN CORPUSCULAR HGB CONC 32.8 g/dL (31-35); MEAN CORPUSCULAR VOLUME 97.3 fL (81-99); MONOCYTES # (AUTO) 0.4 (0.2-0.8); MONOCYTES % 1.9 % (4.4-11.3); NEUTROPHILS # (AUTO) 20.1 (2.1-6.9); NEUTROPHILS % 90.8 % (38.7-80.0); PLATELET COUNT 221 x10e3/uL (140-360); RED BLOOD COUNT 4.04 x10e6/uL (4.3-5.7); RED CELL DISTRIBUTION WIDTH 14.1 % (11.7-14.4)
[2020-03-20 05:46] LABS: ALBUMIN 1.9 g/dL (3.5-5.0); ALBUMIN/GLOBULIN RATIO 0.5 (0.8-2.0); ANION GAP 19.3 mmol/L (8-16); CALCIUM 7.7 mg/dL (8.4-10.2); CREATININE, SERUM 1.43 mg/dL (0.72-1.25); POTASSIUM 5.3 mmol/L (3.5-5.1)
--- NOTE | 2020-03-20 07:51 | NUR ---
pt resting, no s/s distress. currently on vent 70%/8/20/400 & levophed @6. unresponsive to sternal rub. vs stable
[2020-03-20] MEDS: ENOXAPARIN SOD INJ 40 MG/0.4 ML SYR SC SCH (08:26)
--- NOTE | 2020-03-20 08:41 | Diagnostic Imaging Report ---
EXAM: CHEST SINGLE (PORTABLE) DATE: 03/20/2020 5:30 AM INDICATION: Respiratory failure COMPARISON: 03/19/2020 FINDINGS: Endotracheal tube identified in stable position. Enteric tube noted coursing below the diaphragm. There are grossly stable appearing perihilar and left lower lung zone interstitial/hazy opacities. There is no evidence for pneumothorax or significant volume pleural effusion. The cardiac mediastinal silhouette is stable in appearance. No acute osseous abnormality is identified. IMPRESSION: No significant interval change from 03/19/2020. Signed by: Dr. Jakob Dalal MD on 03/20/2020 8:37 AM
[2020-03-20] MEDS ORDERED: SODIUM CHLORIDE 0.9% 1000ML 1,000 ML IV ONE (09:30)
[2020-03-20 09:45] LABS: LYMPHOCYTES % (MANUAL) 5 % (19-48); MONOCYTES % (MANUAL) 1 % (3.4-9.0); NEUTROPHILS % (MANUAL) 90 % (40-74)
[2020-03-20 09:46] LABS: BAND NEUTROPHILS % (MANUAL) 4 %
--- NOTE | 2020-03-20 11:58 | Progress Note ---
DATE: SUBJECTIVE: The patient is having less urine output. He is now requiring Levophed at 6 mcg. He remains on mechanical ventilation with a PRVC at a rate of 24 and a tidal volume of 400. His PEEP is set at 10 and his FiO2 is set at 70%. PHYSICAL EXAMINATION: VITAL SIGNS: Blood pressure is 116/80 and saturation is 98%. The pulse is 83. HEENT: Shows no facial swelling or erythema. CARDIAC: Reveals regular rate and rhythm with normal S1, S2. LUNGS: Auscultation of lungs reveals rhonchorous breath sounds bilaterally. There is no wheezing. ABDOMEN: Soft, nontender. There is no rebound or guarding. EXTREMITIES: No leg edema or calf tenderness. There is no cyanosis, clubbing. SKIN: No rashes. LABORATORY DATA: White blood cell count is increased to 22.2 and hemoglobin is 12.9. The platelet count is 221. BUN to creatinine ratio is 39 to 1.43. The potassium is 5.3. The carbon dioxide is 17. The albumin is 1.9. IMPRESSION: 1. Acute respiratory failure. 2. Viral pneumonia COVID-19 infection. 3. Acute renal failure. 4. Prior seizure disorder. 5. Hypertension. PLAN: 1. Case discussed again with the daughter. She does not want CPR or mechanical ventilation or other measures that would prolong the patient's suffering. She does want IV antibiotics and fluids. 2. Continue dexamethasone. 3. Continue fluids. 4. Continue antibiotics. 5. Palliative Care consult. 6. Prognosis remains poor. Mauro Guzmán MD [facility] /[id number]
--- NOTE | 2020-03-20 13:40 | NUR ---
Production Designer called pt's daughter, Lisandra to provide emotional/spiritual support. No answer. Left message on voicemail. Will follow as able. [facility] O: [phone]
--- NOTE | 2020-03-20 14:42 | NUR ---
family made pt DNAR. discussed and agreed to withdraw care. attending now aware. orders rcv for comfort.
[2020-03-20] MEDS ORDERED: MORPHINE SULFATE 2 MG/ML SYR 1ML IV PRN (14:45)
[2020-03-20] MEDS ORDERED: LORAZEPAM INJ 2 MG/ML VIAL IV ONE (15:30)
[2020-03-20] MEDS ORDERED: LORAZEPAM INJ 2 MG/ML VIAL IV PRN (16:00)
--- NOTE | 2020-03-20 16:46 | NUR ---
incorrect entry. Addendum: 03/20/20 at 1647 by Danielle Duran RN Amended: Links added.
--- NOTE | 2020-03-20 17:39 | NUR ---
mechanical ventilation was removed per family and MD discussion. pt vital signs have ceased. pending MD to pronounce.
--- NOTE | 2020-03-20 19:00 | NUR ---
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 MD Lulu, [facility] [employer] notified by live [facility].
--- NOTE | 2020-03-20 19:06 | NUR ---
pt was pronounced at by dr bui. attending paged to notify. daughter notified. she stated only arrangements in place were for [facility] for cremation. Barry notified, after [employer] called.
--- NOTE | 2020-03-20 19:30 | Progress Note ---
DATE: SUBJECTIVE: Mr. Hall is doing poorly today. He is getting progressively worse. The patient is DNR. Discussed with the medical team. He was on vasopressors. OBJECTIVE: HEENT: Normocephalic, pale. CHEST: Crackles bilateral. COR: S1 and S2. ABDOMEN: Soft. IMPRESSION: Respiratory failure, COVID-19, renal failure, and seizure disorder. Agree with DNR. Agree with comfort care. We will sign off. MD SERGIO Saeed/MODL /[id number]
--- NOTE | 2020-03-20 22:21 | NUR ---
home picked up patient at this time. Paperwork signed.
--- OUTSIDE RECORDS SUMMARY | 2020-03-22 19:06 | XMS REPORT | Continuity of Care Document ---
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 The patient has well controlled epilepsy life long. Originally documented as Generalized convulsive epilepsy. Data migrated from [employer] on 09/27/2016. The patient has well controlled epilepsy life long. Originally documented as Generalized convulsive epilepsy. Data migrated from [employer] on 09/09/15. The patient has well controlled epilepsy life long. Originally documented as [facility]ized convulsive epilepsy. 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 The patient has a severe motor sensory iPN. I again recommended AFOs. This time, he was willing to go. 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 [facility] Compression fracture of vertebral column (disorder) Active 05/28/2015 Problem 03/30/2019 Data migrated from [employer] on 09/09/15. The patient describes recent fall related VCFs. His pain is much better and Dr. Box is managing the problem appropriately. Originally documented as Vertebral compression fracture. [facility] Peripheral vertigo (disorder) Active 01/22/2014 Problem 03/30/2019 Data migrated from [employer] on 09/09/15. Originally documented as Vertigo, peripheral. [facility] Epilepsy (disorder) Active Problem 03/30/2019 [facility] Squamous cell carcinoma of skin (disorder) Resolved Problem 03/30/2019 [facility] Medications Medication Details Route Status Patient Instructions Ordering Provider Order Date Source PHENobarbital 30 mg oral tablet 90 mg = 3 tab, PO, Bedtime, # 270 tab, 1 Refill(s) Active 08/22/2018 [facility] PHENobarbital 30 mg oral tablet 90 mg = 3 tab, PO, Bedtime, # 270 tab, 1 Refill(s), called to pharmacy Active 02/15/2018 [facility] gabapentin 100 MG Oral Capsule 200 mg = 2 cap, PO, Bedtime, # 180 cap, 3 Refill(s), NIKIA, Pharmacy: [facility] [address] [address] [facility] [id number] Active 12/22/2017 [facility] phenytoin 100 mg oral capsule, extended release 300 mg = 3 cap, PO, Bedtime, # 270 cap, 3 Refill(s), Pharmacy: [facility] [address] [facility] [employer] [facility] [id number] Active 12/22/2017 [facility] PHENobarbital 30 mg oral tablet 30 mg = 1 tab, PO, TID, # 270 tab, 3 Refill(s) Active 12/22/2017 [facility] PHENobarbital 30 mg oral tablet 30 mg = 1 tab, PO, TID, # 270 tab, 0 Refill(s), called to pharmacy No Longer Active 11/08/2017 [facility] Allergies, Adverse Reactions, Alerts Substance Category Reaction Severity Reaction type Status Date Reported Comments Source No Known Medication Allergies Assertion Drug [facility] Immunizations No Data Provided for This Section Results No Data Provided for This Section Pathology Reports No Data Provided for This Section Diagnostic Reports No Data Provided for This Section Consultation Notes No Data Provided for This Section Discharge Summaries No Data Provided for This Section History and Physicals No Data Provided for This Section Vital Signs Vital Sign Value Date Comments Source BMI Calculated 22.55 02/03/2018 [facility] Weight 81.818 02/03/2018 [facility] Height 190.5 cm 02/03/2018 [facility] Heart Rate 92 02/03/2018 [facility] Systolic (mm Hg) 154 02/03/2018 [facility] Diastolic (mm Hg) 94 02/03/2018 [facility] Weight 80.966 12/22/2017 [facility] Heart Rate 83 12/22/2017 [facility] Systolic (mm Hg) 145 12/22/2017 [facility] Diastolic (mm Hg) 87 12/22/2017 [facility] Encounters Location Location Details Encounter Type Encounter Number Reason For Visit Attending Provider ADM Date DC Date Status Source Outpatient [id number] [facility] 04/23/2016 Active [facility] Outpatient [id number] [facility] 10/21/2016 Active [facility] Outpatient [id number] [facility] 04[facility]27/2017 Active [facility] [id number] [facility] 10/25/2017 Active [facility] Ambulatory Pre-Reg [id number] Jonas Henrik 10/25/2017 10/25/2017 [facility] Phone Message [id number] 11/08/2017 11/10/2017 [facility] Outpatient [id number] [facility] 12/22/2017 [facility] Outpatient [id number] [facility] 12/22/2017 12/23/2017 [facility] Phone Message [id number] 01/04/2018 01/06/2018 [facility] Phone Message [id number] 01/06/2018 01/08/2018 [facility] Phone Message [id number] 01/25/2018 01/27/2018 [facility] Outpatient [id number] ESPERANZA GORDILLO 02/03/2018 Active [facility] Outpatient [id number] [facility] 02/03/2018 02/04/2018 [facility] Phone Message [id number] 02/15/2018 02/17/2018 [facility] Outpatient [id number] [facility] 06/23/2018 Active [facility] Outpatient [id number] [facility] 06/23/2018 06/24/2018 [facility] Phone Message [id number] 08/18/2018 08/20/2018 [facility] Phone Message [id number] 08/19/2018 08/21/2018 [facility] Outpatient [id number] ESPERANZA GORDILLO 09/05/2018 Active [facility] Ambulatory Pre-Reg [id number] Josi Klein 09/05/2018 09/05/2018 [facility] Phone Message [id number] 12/07/2018 12/09/2018 [facility] Phone Message [id number] 12/07/2018 12/09/2018 [facility] Phone Message [id number] 12/19/2018 12/21/2018 [facility] Outpatient [id number] JONAS ALVAREZ 12/21/2018 Active [facility] Ambulatory Pre-Reg [id number] Jonas Alvarez 12/21/2018 12/21/2018 [facility] Outpatient [id number] Jonas Alvarez 03/28/2019 Active [facility] Ambulatory Pre-Reg [id number] Jonas Alvarez 03/28/2019 03/28/2019 [facility] Procedures Procedure Code Date Perfomer Comments Source Tonsillectomy [id number] 08/23/1937 [facility] Cataract surgery [id number] [facility] Complicated cataract surgery [id number] [facility] Assessment and Plan No Data Provided for This Section Plan of Care No Data Provided for This Section Social History Social History Date Source Social History TypeResponse Substance Abuse Use: None. Employment/School Status: Retired. Highest education level: Other. Alcohol Never Smoking Status Former smoker; Exposure to Tobacco Smoke Unable to obtain; Cigarette Smoking Last 365 Days Unable to obtain; Reg Smoking Cessation Counseling No entered on: 06/23/18 12/22/2017 [facility] Family History No Data Provided for This Section Advance Directives No Data Provided for This Section Functional Status No Data Provided for This Section
--- OUTSIDE RECORDS SUMMARY | 2020-03-22 19:06 | XMS REPORT | Continuity of Care Document ---
Author Author [facility] t Organization [facility] Address [address] [place] [address] Phone Unavailable Care Team Providers Care Sales Agent Casualty Insurance Name Role Phone MD SANDRA HOOVER PCP SANDRA HOOVER Attphys Unavailable ROSS, T VAUGHAN Attphys Unavailable SANDHIR, S AMBICA Attphys Unavailable Henrik, Baldo Jonas Attphys JUSTIN, KAYLAH Attphys Unavailable Carpio, Tova Attphys Henrik, S Jonas Attphys HOOVER, SOUHEIL Admphys Unavailable JUSTIN, KAYLAH Admphys Unavailable Payers Payer Name Policy Type Policy Number Effective Date Expiration Date James munoz EBONY [id number] 2019 00:00:00 [facility] Medicare A & B [id number] 2000 00:00:00 [facility] Problems Condition Name Condition Details Condition Category Status Onset Date Resolution Date Last Treatment Date Treating Clinician Comments Source 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 The patient has well controlled epilepsy life long. Originally documented as Generalized convulsive epilepsy.Data migrated from [employer] on 09/27/2016. The patient has well controlled epilepsy life long. Originally documented as Generalized convulsive epilepsy.Data migrated from [employer] on 09/09/15. The patient has well controlled epilepsy life long. Originally documented as Generalized convulsive epilepsy. 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 The patient has a severe motor sensory iPN. I again recommended AFOs. This time, he was willing to go. 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 [facility] Problem Active 2016-04-23 00:00:00 2019-03-30 22:22:48 Crystal Dylon Compression fracture of vertebral column (disorder) Compression fracture of vertebral column (disorder) Active 05/28/2015 Problem 03/30/2019 Data migrated from [employer] on 09/09/15. The patient describes recent fall related VCFs. His pain is much better and Dr. Box is managing the problem appropriately. Originally documented [facility]bral [facility] Active 2015-05-28 00:00:00 2019-03-30 22:22:48 [facility] Peripheral vertigo (disorder) Peripheral vertigo (disorder) Active 01/22/2014 Problem 03/30/2019 Data migrated from [employer] on 09/09/15. Originally documented as Vertigo, peripheral. [facility] Active 2014-01-22 00:00:00 2019-03-30 22:22:48 [facility] Abrasion Abrasion Problem Active [facility] Closed head injury Closed head injury Problem Active [facility] Decreased activities of daily living (ADL) Decreased a ctivities of daily living (ADL) Problem Active [facility] Weakness Generalized weakness Problem Active [facility] Back pain Problem Active [facility] Right middle lobe pneumonia Problem Active [facility] Respiratory distress Problem Active [facility] Altered mental status Problem Active [facility] Sepsis Problem Active [facility] Infection due to severe acute respiratory syndrome coronavir us 2 (SARS-CoV-2) Problem Active [facility] Fever Problem Active [facility] Viral pneumonia Problem Active [facility] Hypoxemia requiring supplemental oxygen Problem Active [facility] Squamous cell carcinoma of skin (disorder) Squamous cell carcinoma of skin (disorder) Resolved Problem 03/30/2019 [facility] Problem Resolved 2019-03-30 22:22:48 Imelda Osborne Epilepsy (disorder) Epil epsy (disorder) Active Problem 03/30/2019 [facility] Active 2019-03-30 22:22:48 Crystal Osborne Allergies, Adverse Reactions, Alerts Allergy Name Allergy Type Status Severity Reaction(s) Onset Date Inacti ve Date Treating Clinician Comments Source No Known Allergies DA Active U 2019-12-25 00:00:00 [facility] No Known Contrast Allergies DA Active U 2008-05-04 00:00: 00 [facility] No Known Drug Allergies DA Active U 2008-05-04 00:00:00 [facility] No Known Food Allergies DA Active U 2008-05-04 00:00:00 [facility] No Known Other Allergies DA Active U 2008-05-04 00:00:00 [facility] No Known Medication Allergies No Known Medication Allergies Active Crystal Osborne Social History Social Habit Start Date Stop Date Quantity Comments Source Social History 2017-12-22 21:15:15 2017-12-22 21:15:15 Crystal Osborne Sex Assigned At 1935 00:00:00 1935 00:00:00 Male [facility] Medications Ordered Medication Name Filled Medication Name Start Date Stop Da te Current Medication? Ordering Clinician Indication Dosage Frequency Signature (SIG) Comments Components Source PHENobarbital 30 mg oral tablet 2018-08-22 16:01:13 Yes 90 mg = 3 tab, PO, Bedtime, # 270 tab, 1 Refill(s) Crystal Osborne PHENobarbital 30 mg oral tablet 2018-02-15 19:33:00 Yes 90 mg = 3 tab, PO, Bedtime, # 270 tab, 1 Refill(s), called to pharmacy Crystal Osborne gabapentin 100 MG Oral Capsule 2017-12-22 21:48:54 Yes 200 mg = 2 cap, PO, Bedtime, # 180 cap, 3 Refill(s), NIKIA, Pharmacy: [facility] [id number] Crystal Osborne phenytoin 100 mg oral capsule, extended release 2017-12-22 21:48 :42 Yes 300 mg = 3 cap, PO, Bedtime, # 270 cap, 3 Refill(s), Pharmacy: [facility] [id number] Crystal Osborne PHENobarbital 30 mg oral tablet 2017-12-22 21:48:35 Yes 30 mg = 1 tab, PO, TID, # 270 tab, 3 [facility] mg oral tablet 2017-11-08 15:25:20 No 30 mg = 1 tab, PO, TID, # 270 tab, 0 Refill(s), [facility] Cefepime Hcl/D5w (Cefepime-Dextrose 1 Gm/50 Ml) 1 Gm/5 0 Ml PIGGYBACK Cefepime Hcl/D5w (Cefepime-Dextrose 1 Gm/50 Ml) 1 Gm/50 Ml PIGGYBACK Yes 1 Every 8 Hours [facility] Gabapentin (Neurontin) 100 Mg CAPSULE Gabapentin (Neurontin) 100 Mg CAPSULE Yes 200 Bedtime [facility] Lisinopril (Prinavil / Zestril) 20 Mg TABLET Lisinopri l (Prinavil / Zestril) 20 Mg TABLET Yes 20 Daily [facility] Meclizine Hcl Meclizine Hcl Yes 12.5 Every 8 Hours as needed for Nausea And Vomiting [facility] Phenobarbital Phenobarbital Yes 90 Hs [facility] Phenytoin Sodium Extended (Dilantin) 100 Mg CAPSULE Ph enytoin Sodium Extended (Dilantin) 100 Mg CAPSULE Yes 300 Hs [facility] Aspirin Aspirin 2020-03-19 00:00:00 No 81 Daily [facility] Dilantin Dilantin 2015-05-21 00:00:00 No Hs [facility] Vital Signs Vital Name Observation Time Observation Value Comments Source Body Temperature 2020-03-20 13:05:00 98.4 [degF] [facility] Weight 2020-03-20 05:12:00 160.38 [lb_av] [facility] BMI (Body Mass Index) 2020-03-20 05:12:00 20.0 kg/m2 [facility] Weight 2020-03-15 16:00:00 175 [lb_av] [facility] BMI (Body Mass Index) 2020-03-15 16:00:00 21.9 kg/m2 [facility] Weight 2020-02-08 14:33:00 175 [lb_av] [facility] BMI (Body Mass Index) 2020-02-08 14:33:00 21.9 kg/m2 [facility] BMI Calculated 2018-02-03 15:53:00 Memori al Dylon Weight 2018-02-03 15:53:00 [facility] [place] Height 2018-02-03 15:53:00 190.5 cm [facility] Heart Rate 2018-02-03 15:53:00 [facility] [place] Systolic (mm Hg) 2018-02-03 15:53:00 Aurelio rial D[place] Diastolic (mm Hg) 2018-02-03 15:53:00 [facility] [place] Weight 2017-12-22 21:00:00 [facility] [place] Heart Rate 2017-12-22 21:00:00 [facility] [place] Systolic (mm Hg) 2017-12-22 21:00:00 A[facility]lio [facility] [place] Diastolic (mm Hg) 2017-12-22 21:00:00 [facility] [place] Procedures Procedure Date / Time Performed Performing Clinician Paulette quiroga Tonsillectomy 1937-08-23 00:00:00 [facility] Cataract surgery [facility] Complicated cataract surgery Mem [facility] [place] Encounters Start Date/Time End Date/Time Encounter Type Admission Type Attendi [facility] Care Department Encounter ID Source 2020-03-19 04:04:00 2020-03-20 22:21:00 Discharged Inpatient [address] [facility] [id number] [facility] 2020-03-15 16:20:00 2020-03-15 20:10:00 Departed Emergency Room ALEXUS HAWKINS [facility] [id number] [facility] 2020-02-08 14:39:00 2020-02-08 19:07:00 Departed Emergency Room [address] [facility] [id number] Sil[facility] 2019-03-28 15:45:00 2019-03-28 15:45:00 Outpatient Henrik, P hilip Baldo [facility] [id number] 2018-12-21 11:40:00 2018-12-21 11:40:00 Outpatient Murtaugh, P hilip Baldo [facility] [id number] 2018-12-19 11:55:30 2018-12-20 23:59:59 Outpatient MHMIS KAYDEN M[facility] [id number] 2018-12-07 12:24:00 2018-12-08 23:59:59 Outpatient MHMIS KAYDEN [facility] [id number] 2018-12-07 12:15:00 2018-12-08 23:59:59 Outpatient MHMIS KAYDEN [facility] [id number] 2018-10-25 07:17:00 2018-10-25 21:10:00 Discharged Inpatient (obs) 1 KAYLAH ANDERSON [facility] [id number] [facility] 2018-09-05 13:00:00 2018-09-05 13:00:00 Outpatient Jesus Carpio [facility] [id number] 2018-09-02 12:38:00 2018-09-02 12:38:00 Registered Clinic [facility] [id number] [facility] 2018-08-19 07:32:00 2018-08-20 23:59:59 Outpatient MHMIS KAYDEN MHMISCHER [id number] 2018-08-18 11:16:00 2018-08-19 23:59:59 Outpatient MHMIS KAYDEN M[facility]ISCH[facility] [id number] 2018-06-23 11:45:00 2018-06-23 23:59:59 Outpatient Henrik, P hilip Baldo [facility] [id number] 2018-02-15 10:09:00 2018 23:59:59 Outpatient MHMIS KAYDEN MHMISCHER [id number] 2018-02-03 10:30:00 2018-02-03 23:59:59 Outpatient Henrik, P hilip Baldo [facility] [id number] 2018-01-25 10:34:00 2018-01-26 23:59:59 Outpatient MHMIS KAYDEN [facility] [id number] 2018-01-06 11:31:00 2018-01-07 23:59:59 Outpatient MHMIS KAYDEN [facility] [id number] 2018-01-04 16:12:00 2018-01-05 23:59:59 Outpatient MHMIS KAYDEN M[facility]IS[facility] [id number] 2017-12-22 15:15:00 2017-12-22 23:59:59 Outpatient Henrik, P hilip Baldo [facility] [id number] 2017-12-22 15:15:00 2017-12-22 23:59:59 Outpatient Henrik, P hilip Baldo [facility] [id number] 2017-11-08 08:41:00 2017-11-09 23:59:59 Outpatient MHMIS KAYDEN [facility]IS[facility] [id number] 2017-10-25 12:45:00 2017-10-25 12:45:00 Outpatient Henrik, Phi lip S [facility] [id number] 2017-10-25 12:45:00 2017-10-25 12:45:00 Outpatient Murtaugh, Phi lip S [facility] [id number] Results Test Description Test Time Test Comments Results Result Comments Source CHEST SINGLE (PORTABLE) 2020-03-20 08:35:00 [place] [address] Patient Name: MARISELA SMITH MR #: [id number] : 1935 Age/Sex: 85/M Req #: [id number] Adm Physician: SANDRA HOOVER MD Ordered by: MINERVA LASSITER MD Report #: [id number] Location: [facility] Room/Bed: [place] [address] Procedure: [id number] DX/CHEST SINGLE (PORTABLE) Exam Date: 03/20/20 Exam Time: 0530 REPORT STATUS: Signed EXAM: CHEST SINGLE (PORTABLE) DATE: 03/20/2020 5:30 AM INDICATION: Respiratory failure COMPARISON: 03/19/2020 FINDINGS: Endotracheal tube identified in stable position. Enteric tube noted coursing below the diaphragm. There are gunner sly stable appearing perihilar and left lower lung zone interstitial/hazy opacities. There is no evidence for pneumothorax or significant volume pleural effusion. The cardiac mediastinal silhouette is stable in appearance. No acute osseous abnormality is identified. IMPRESSION: No significant interval change from 03/19/2020. Signed by: Dr. Jakob Dalal MD on 03/20/2020 8:37 AM Dictated By: JAKOB DALAL MD 6 Transcribed By: HARI on 03/20/20836 COPY TO: MINERVA LASSITER MD Blood leukocytes automated count (number/volume) 2020-03-20 04:57:00 Test Item White Blood Count (test code = 6690-2) 22.19 4.8-10.8 [facility] count (number/volume)2020-03-20 04:57:00* Test Item Value Reference Range Interpretation Comments Red Blood Count (test code = 789-8) 4.04 4.3-5.7 [facility] hemoglobin measurement (moles/volume)2020-03-20 04:57:00* Test Item Value Reference Range Interpretation Comments Hemoglobin (test code = 78781-5) 12.9 14.0-18.0 [facility] blood hematocrit (volume fraction)2020-03-20 04:57:00* Test Item Value Reference Range Interpretation Comments Hematocrit (test code = 4544-3) 39.3 38.2-49.6 [facility] erythrocyte mean corpuscular wmmktz6180-11-07 04:57:00* Test Item Value Reference Range Interpretation Comments Mean Corpuscular Volume (test code = 787-2) 97.3 81-99 [facility] eryth[facility] mean corpuscular hemoglobin (mass per erythrocyte)2020-03-20 04:57:00* Test Item Value Reference Range Interpretation Comments Mean Corpuscular Hemoglobin (test code = 785-6) 31.9 28-32 [facility] erythrocyte mean corpuscular hemoglobin concentration measurement (mass/volume)2020-03-20 04:57:00* Test Item Value Reference Range Interpretation Comments Mean Corpuscular Hemoglobin Concent (test code = 786-4) 32.8 31-35 [facility] HospitalRDW VicSr-Yof0071-38-29 04:57:00* Test Item Value Reference Range Interpretation Comments Red Cell Distribution Width (test code = 76386-6) 14.1 11.7 -14.4 [facility] blood platelet count (count/volume)2020-03-20 04:57:00* Test Item Value Reference Range Interpretation Comments Platelet Count (test code = 777-3) 221 140-360 [facility] blood segmented neutrophil count as percentage of total fwtvcdprrx8621-31-95 04:57:00* Test Item Value Reference Range Interpretation Comments Neutrophils (%) (Auto) (test code = 88587-0) 90.8 38.7-80.0 [facility] blood lymphocyte count as percentage ot total tebdxdiykq5243-86-02 04:57:00* Test Item Value Reference Range Interpretation Comments Lymphocytes (%) (Auto) (test code = 736-9) 6.0 18.0-39.1 [facility] blood monocyte count as percentage of total wsctnnztcb1039-50-55 04:57:00* Test Item Value Reference Range Interpretation Comments Monocytes (%) (Auto) (test code = 5905-5) 1.9 4.4-11.3 [facility] blood eosinophil count as percentage of total jqtzzfnqyh1753-61-07 04:57:00* Test Item Value Reference Range Interpretation Comments Eosinophils (%) (Auto) (test code = 713-8) 0.1 0.0-6.0 [facility] blood basophil count as percentage of total pqxeizqkxm0478-53-58 04:57:00* Test Item Value Reference Range Interpretation Comments Basophils (%) (Auto) (test code = 706-2) 0.2 0.0-1.0 [facility] HospitalFluoroscopic procedure less than one hour xtmciufh9526-11-30 04:57:00* Test Item Value Reference Range Interpretation Comments IM GRANULOCYTES % (test code = IM GRANULOCYTES %) 1.0 0.0- 1.0 [facility] blood neutrophil count 2020-03-20 04:57:00* Test Item Value Reference Range Interpretation Comments Neutrophils # (Auto) (test code = 751-8) 20.1 2.1-6.9 [facility] lymphocytes count (number/volume) 2020-03-20 04:57:00* Test Item Value Reference Range Interpretation Comments Lymphocytes # (Auto) (test code = 79352-8) 1.3 1.0-3.2 [facility] monocytes automated count (number/volume)2020-03-20 04:57:00* Test Item Value Reference Range Interpretation Comments Monocytes # (Auto) (test code = 742-7) 0.4 0.2-0.8 [facility] blood eosinophil count 2020-03-20 04:57:00* Test Item Value Reference Range Interpretation Comments Eosinophils # (Auto) (test code = 711-2) 0.0 0.0-0.4 [facility] blood basophil count (count/volume)2020-03-20 04:57:00* Test Item Value Reference Range Interpretation Comments Basophils # (Auto) (test code = 704-7) 0.1 0.0-0.1 [facility] HospitalFluoroscopic procedure less than one hour dyroucoe1161-23-42 04:57:00* Test Item Value Reference Range Interpretation Comments Absolute Immature Granulocyte (auto (harrison t code = Absolute Immature Granulocyte (auto) 0.23 0-0.1 [facility] HospitalFluoroscopic procedure less than one hour idozmezq6847-64-51 04:57:00* Test Item Value Reference Range Interpretation Comments Differential Total Cells Counted (test code = Bernie lara Total Cells Counted) 100 [facility] blood neutrophils/100 leukocytes 2020-03-20 04:57:00* Test Item Value Reference Range Interpretation Comments Neutrophils % (Manual) (test code = 70874-3) 90 40-74 [facility] blood band neutrophils form/100 nnfdbmbqkg2249-67-79 04:57:00* Test Item Value Reference Range Interpretation Comments Band Neutrophils % (test code = 764-1) 4 [facility] blood lymphocytes/100 leukocytes 2020-03-20 04:57:00* Test Item Value Reference Range Interpretation Comments Lymphocytes % (Manual) (test code = 737-7) 5 19-48 [facility] blood monocytes/100 leukocytes 2020-03-20 04:57:00* Test Item Value Reference Range Interpretation Comments Monocytes % (Manual) (test code = 744-3) 1 3.4-9.0 [facility] sodium [facility] (moles/volume)2020-03-20 04:57:00* Test Item Value Reference Range Interpretation Comments Sodium Level (test code = 2951-2) 134 136-145 [facility] potassium measurement (moles/volume)2020-03-20 04:57:00* Test Item Value Reference Range Interpretation Comments Potassium Level (test code = 2823-3) 5.3 3.5-5.1 [facility] chloride measurement (moles/volume)2020-03-20 04:57:00* Test Item Value Reference Range Interpretation Comments Chloride Level (test code = 2075-0) 103 98-107 [facility] carbon dioxide, total measurement (moles/volume)2020-03-20 04:57:00* Test Item Value Reference Range Interpretation Comments Carbon Dioxide Level (test code = 2028-9) 17 22-29 [facility] anion zql3739-09-19 04:57:00* Test Item Value Reference Range Interpretation Comments Anion Gap (test code = 25498-9) 19.3 8-16 [facility] urea nitrogen measurement (mass/volume)2020-03-20 04:57:00* Test Item Value Reference Range Interpretation Comments Blood Urea Nitrogen (test code = 3094-0) 39 7-26 [facility] creatinine measurement (mass/volume)2020-03-20 04:57:00* Test Item Value Reference Range Interpretation Comments Creatinine (test code = 2160-0) 1.43 0.72-1.25 [facility] urea nitrogen/creatinine mass jynix3025-37-12 04:57:00* Test Item Value Reference Range Interpretation Comments BUN/Creatinine Ratio (test code = 3097-3) 27 6-25 [facility] HospitalEstimated glomerular filtration rate (GFR) jupvdxlgkahcz5015-82-44 04:57:00* Test Item Value Reference Range Interpretation Comments Estimat Glomerular Filtration Rate (test code = 220063177) 47 >60 Ranges were taken from the National Kidney Disease Education Program and the [facility] [employer] literature.Reference ranges:60 or greater: Zyjzhd65-59 ( for 3 consecutive months): Chronic kidney disease 15 or less: Kidney failureHouston Methodist Willowbrook HospitalGlucose ojdsgdokyio7793-70-03 04:57:00* Test Item Value Reference Range Interpretation Comments Glucose Level (test code = KXH5439) 174 74-118 [facility] calcium measurement (mass/volume)2020-03-20 04:57:00* Test Item Value Reference Range Interpretation Comments Calcium Level (test code = 73135-9) 7.7 8.4-10.2 [facility] total bilirubin measurement (mass/volume)2020-03-20 04:57:00* Test Item Value Reference Range Interpretation Comments Total Bilirubin (test code = 1975-2) 0.2 0.2-1.2 [facility] HospitalFluoroscopic procedure less than one hour ongibuhl5934-37-53 04:57:00* Test Item Value Reference Range Interpretation Comments Aspartate Amino Transf (AST/SGOT) (test code = Aspartate Amino Transf (AST/SGOT)) 58 5-34 [facility] alanine aminotransferase measurement (enzymatic activity/volume)2020-03-20 04:57:00* Test Item Value Reference Range Interpretation Comments Alanine Aminotransferase (ALT/SGPT) (test code = 1742-6) 26 0-55 [facility] protein measurement (mass/volume)2020-03-20 04:57:00* Test Item Value Reference Range Interpretation Comments Total Protein (test code = 2885-2) 5.7 6.5-8.1 [facility] albumin measurement (mass/volume)2020-03-20 04:57:00* Test Item Value Reference Range Interpretation Comments Albumin (test code = 1751-7) 1.9 3.5-5.0 [facility] HospitalPlasma globulin measurement (mass/volume) 2020-03-20 04:57:00* Test Item Value Reference Range Interpretation Comments Globulin (test code = 97293-6) 3.8 2.3-3.5 [facility] albumin/globulin mass orijy6227-58-11 04:57:00* Test Item Value Reference Range Interpretation Comments Albumin/Globulin Ratio (test code = 1759-0) 0.5 0.8-2.0 [facility] alkaline phosphatase measurement (enzymatic activity/volume)2020-03-20 04:57:00* Test Item Value Reference Range Interpretation Comments Alkaline Phosphatase (test code = 6768-6) 54 40-150 [facility] creatine kinase measurement (enzymatic activity/volume)2020-03-20 04:57:00* Test Item Value Reference Range Interpretation Comments Creatine Kinase (test code = 2157-6) 298 30-200 [facility] creatine kinase MB measurement (mass/volume)2020-03-20 04:57:00* Test Item Value Reference Range Interpretation Comments Creatine Kinase MB (test code = 38622-2) 5.00 0-5.0 [facility] HospitalTroponin I measurement by highly sensitive enzyme vsukfiiqoub7866-09-24 04:57:00* Test Item Value Reference Range Interpretation Comments Troponin I (test code = 87146-8) 0.057 0-0.300 [facility] HospitalCapillary blood glucose measurement by glucometer (mass/volume)2020-03-19 16:16:00* Test Item Value Reference Range Interpretation Comments Bedside Glucose (test code = 95884-1) 207 70-120 Meter ID: [id number] [place] [address]VIEW (KUB) 2020-03-19 11:42:00 [place] [address] Patient Name: MARISELA SMITH MR #: [id number] : 1935 Age/Sex: 85/M Req #: [id number] Adm Physician: SANDRA HOOVER MD Ordered by: MINERVA LASSITER MD Report #: [id number] Location: [facility] Room/Bed: [place] [address] Procedure: [id number] DX/ABDOMEN-1VIE W (KUB) Exam Date: 03/19/20 Exam Time: 1059 REPORT STATUS: Signed EXAMINATION: CHES T SINGLE (PORTABLE), ABDOMEN-1VIEW (KUB) INDICATION: Intubation, NG tub e placement COMPARISON: Chest radiograph 03/15/2020 FINDINGS: LINES/TUBES:Endotracheal tube terminates at the syeda. Enteric tube terminates in the stomach. LUNGS:The lungs are well-inflated. There is perihilar fu llness and indistinctness of the pulmonary vasculature. Interval increase in l eft lower lung hazy opacities. PLEURA:No pleural effusion or pneumothorax . MEDIASTINUM:The cardiomediastinal silhouette appears unchanged in size an d shape. Atherosclerotic calcifications of the thoracic aorta. BONES/SOFT TISSUES:No acute osseous injury. ABDOMEN:No free air under the diaphragm. IMPRESSION: Endotracheal tube terminates at the syeda. Recommend wit hdrawal by 3 to 4 cm. Enteric tube terminates in the stomach. Interval increase in left lung hazy opacities. Signed by: João Torrez MD on 03/19/20 11:46 AM Dictated By: JOÃO TORREZ MD 1146 Transcribed By: HARI on 03/19/20 1146 COPY TO: MINERVA LASSITER MD CHEST SINGLE (PORTABLE)2020-03-19 11:42:00 [place] [address] Patient Name: MARISELA SMITH MR #: [id number] : 1935 Age/Sex: 85/M Req #: [id number] Adm Physician: SANDRA HOOVER MD Ordered by: MINERVA LASSITER MD Report #: [id number] Location: [facility] Room/Bed: [place] [address] Procedure: [id number] DX/CHEST SINGLE (PORTABLE) Exam Date: 03/19/20 Exam Time: 1059 REPORT STATUS: Signed EXAMINATION: CHEST SINGLE (PORTABLE), ABDOMEN-1VIEW (KUB) INDICATION: Intubation, NG tube placement COMPARISON: Chest radiograph 03/15/2020 FINDINGS: LINES/TUBES:Endotracheal tube terminates at the syeda. Enteric tube termin ates in the stomach. LUNGS:The lungs are well-inflated. There is perihila r fullness and indistinctness of the pulmonary vasculature. Interval increase in left lower lung hazy opacities. PLEURA:No pleural effusion or pneumoth orax. MEDIASTINUM:The cardiomediastinal silhouette appears unchanged in siz e and shape. Atherosclerotic calcifications of the thoracic aorta. BONES/ SOFT TISSUES:No acute osseous injury. ABDOMEN:No free air under the diaphra gm. IMPRESSION: Endotracheal tube terminates at the syeda. Recommend withdrawal by 3 to 4 cm. Enteric tube terminates in the stomach. Inte rval increase in left lung hazy opacities. Signed by: João Torrez MD on 02/21 11:46 AM Dictated By: JOÃO TORREZ MD 1146 Transcribed By: HARI on 03/19/20 1146 COPY TO: MINERVA LASSITER MD Arterial blood pH tbngjjgqmwy5884-90-12 03:30:00* Test Item Value Reference Range Interpretation Comments Arterial Blood pH (test code = 2744-1) 7.37 7.35-7.45 [facility] HospitalpCO2 GbcD3108-94-26 03:30:00* Test Item Value Reference Range Interpretation Comments Arterial Blood Partial Pressure CO2 (test code = 2018-) 35 35-45 [facility] HospitalpCO2 ZwpK9001-09-52 03:30:00* Test Item Value Reference Range Interpretation Comments Arterial Blood Partial Pressure O2 (test code = 2018-) 82 80-105 [facility] HospitalArterial blood bicarbonate measurement (moles/volume)2020-03-19 03:30:00* Test Item Value Reference Range Interpretation Comments Arterial Blood HCO3 (test code = 1960-4) 20 22-26 [facility] HospitalArterial cord blood carbon dioxide, total measurement by calculation (moles/volume)2020-03-19 03:30:00* Test Item Value Reference Range Interpretation Comments Arterial Blood Total CO2 (test code = 73893-2) 21 [facility] HospitalArterial blood base excess by calculation 2020-03-19 03:30:00* Test Item Value Reference Range Interpretation Comments Arterial Blood Base Excess (test code = 1925-7) -5.0 -2-3 [facility] HospitalArterial blood oxygen saturation jymojogzjpg3387-58-31 03:30:00* Test Item Value Reference Range Interpretation Comments Arterial Blood Oxygen Saturation (test code = 2708-6) 96.0 95-98 [facility] HospitalFluoroscopic procedure less than one hour qiaurpvs0507-18-59 03:30:00* Test Item Value Reference Range Interpretation Comments FiO2 (test code = FiO2) 40 Pt on 10L HFNCCHI [facility] 2020-03-19 03:27:00 [place] [address] Patient Name: MARISELA SMITH MR #: [id number] : 1935 Age/Sex: 85/M Req #: [id number] Adm Physician: Ordered by: DEE SALAZAR MD Report #: [id number] Location: ER Room/Bed: Procedure: [id number] DX/EDY ST SINGLE (PORTABLE) Exam Date: 03/19/20 Exam Time: 0300 REPORT STATUS: Signed EXAMI NATION: CHEST SINGLE (PORTABLE) INDICATION: Fever hypoxia positiv e Covid COMPARISON: Chest x-ray 03/15/2020 FINDINGS: TUB ES and LINES: None. LUNGS: Normal lung volumes. Hazy opacities in the bi lateral mid and lower lungs, left greater than right. PLEURA: No pleur al effusion or pneumothorax. HEART AND MEDIASTINUM: The cardiomediastinal silhouette is unremarkable. Aortic calcifications. BONES AND SOFT TIS SUES: Degenerative changes. No acute osseous lesion. Soft tissues are unrema rkable. UPPER ABDOMEN: No free air under the diaphragm. IMPRESSION : Findings of multifocal pneumonia. Signed by: Oskar Kay DO on 03/19/2020 3:29 AM Dictated By: OSKAR KAY DO 0329 Transcribed By: HARI on 03/19/20 0 329 COPY TO: DEE SALAZAR MD Urine color determination 2020-03-19 02:55:00* Test Item Value Reference Range Interpretation Comments Urine Color (test code = 5778-6) YELLOW YELLOW [facility] HospitalUrine dzvvaok4793-27-25 02:55:00* Test Item Value Reference Range Interpretation Comments Urine Clarity (test code = 51129-9) SL CLOUDY [facility]AR [facility] Urine by Test strip 2020-03-19 02:55:00* Test Item Value Reference Range Interpretation Comments Urine Specific Amery (test code = 5811-5) 1.025 1.010-1.02 5 [facility] HospitalUrine pH measurement by automated test vibzl2864-00-09 02:55:00* Test Item Value Reference Range Interpretation Comments Urine pH (test code = 86868-2) 5.5 5-7 [facility] HospitalUrine leukocyte esterase detection by bbasydch8597-69-97 02:55:00* Test Item Value Reference Range Interpretation Comments Urine Leukocyte Esterase (test code = 5799-2) NEGATIVE NEGATIVE [facility] HospitalUrine nitrite siqruhurj7785-24-47 02:55:00* Test Item Value Reference Range Interpretation Comments Urine Nitrite (test code = 33073-8) NEGATIVE NEGATIVE [facility] HospitalUrine protein measurement by test strip (mass/volume)2020-03-19 02:55:00* Test Item Value Reference Range Interpretation Comments Urine Protein (test code = 5804-0) >=300 NEGATIVE [facility] HospitalUrine glucose jmgvinvyq7951-31-97 02:55:00* Test Item Value Reference Range Interpretation Comments Urine Glucose (UA) (test code = 2349-9) NEGATIVE NEGATIVE [facility] HospitalUrine ketones detection by automated test yxfwx1666-42-35 02:55:00* Test Item Value Reference Range Interpretation Comments Urine Ketones (test code = 63664-0) 1+ NEGATIVE [facility] HospitalUrine urobilinogen measurement by test strip (mass/volume)2020-03-19 02:55:00* Test Item Value Reference Range Interpretation Comments Urine Urobilinogen (test code = 57540-2) 0.2 0.2-1 [facility] HospitalUrine total bilirubin measurement (mass/volume)2020-03-19 02:55:00* Test Item Value Reference Range Interpretation Comments Urine Bilirubin (test code = 1978-6) NEGATIVE NEGATIVE [facility] HospitalUrine erythrocytes uoauyflok9570-72-23 02:55:00* Test Item Value Reference Range Interpretation Comments Urine Blood (test code = 31530-7) MODERATE NEGATIVE [facility] HospitalAutomated urine sediment leukocyte count by microscopy (number/high power field)2020-03-19 02:55:00* Test Item Value Reference Range Interpretation Comments Urine WBC (test code = 5821-4) 0-5 0-5 [facility] HospitalErythrocytes detection in urine sediment by light jpusbjtsix3411-91-17 02:55:00* Test Item Value Reference Range Interpretation Comments Urine RBC (test code = 20371-5) 6-10 0-5 [facility] HospitalBacteria detection in urine sediment by light jgxvqltkap4150-07-28 02:55:00* Test Item Value Reference Range Interpretation Comments Urine Bacteria (test code = 96685-0) FEW NONE [facility] HospitalEpithelial cells detection in urine sediment by light hpixbvrazv5344-11-33 02:55:00* Test Item Value Reference Range Interpretation Comments Urine Epithelial Cells (test code = 56005-9) RARE NONE [facility] HospitalAmorphous sediment detection in urine sediment by light ersyufstuf7551-20-36 02:55:00* Test Item Value Reference Range Interpretation Comments Urine Amorphous Sediment (test code = 8246-1) MODERATE FEW [facility] HospitalFluoroscopic procedure less than one hour kyvvzkmg4498-77-20 02:49:00* Test Item Value Reference Range Interpretation Comments Coronavirus (PCR) (test code = Coronavirus (PCR)) DETECTED NOTD ETECTED SARS-COV2/RT-PCRResults are for the detection of SARS-COV-2 RNA. The SARS-COV-2 RNA is generally detectable in nasopharyngeal swab specimens during the acute ph ase of infection. Positive results are indicitive of active infection with SARS- COV-2; clinical correlation with patient history and other diagnostic informatio n is necessary to determine patient infection status. Positive results do not ru le out bacterial infection or co-infection with other viruses. The agent detecte d may not be the definite cause of the disease.The limit of detection for this a ssay is 250 copies/mLThe SARS-CoV-2 test is a rapid, real-time RT-PCR test inten ded for the qualitative detection of nucleic acid from SARS-CoV-2 in nasopharyng eal swab specimen collected from individuals suspected of COVID-19 by their [facility] provider. This test has not been Food and Drug Administration (FDA) clear ed or approved and has been authorized by FDA under an Emergency Use Authorizati on (EUA). This EUA will be effective until the declaration that circumstances ex ist justifying the authorization of the emergency use of in vitro diagnostic harrison t for detection and or diagnosis of COVID-19 is terminated under section 564(b) of the Act, or the the EUA is revoked under 564(g) of the ACT.Testing performed by [facility] [place], [place] [address]ZLNHouston [facility] HospitalProthrombin time (PT) in platelet poor plasma by coagulation anxpc4562-52-10 02:17:00* Test Item Value Reference Range Interpretation Comments Prothrombin Time (test code = 5902-2) 15.4 11.9-14.5 [facility] HospitalINR in Platelet poor plasma by Coagulation yyuhd0398-72-60 02:17:00* Test Item Value Reference Range Interpretation Comments Prothromb Time International Ratio (test code = 6301-6) 1.16 Oral Anticoagulant Therapy INR Values:1. Low Intensity Therapy 1.5 - 2.02 . Moderate Intensity Therapy 2.0 - 3.03. High Intensity Therapy(1) 2.5 - 3. 54. High Intensity Therapy(2) 3.0 - 4.05. Panic Value INR > 5.0 [facility] HospitalActivated partial thromboplastin time (aPTT) in platelet poor plasma by coagulation ulpdx1175-32-94 02:17:00* Test Item Value Reference Range Interpretation Comments Activated Partial Thromboplast Time (test code = 77435-8) 41.2 23.8-35.5 [facility] HospitalCHEST SINGLE (PORTABLE)2020-03-15 17:27:00 [facility] [address] [place] [address] Patient Name: MARISELA SMITH MR #: [id number] : 1935 Age/Sex: 85/M Req #: [id number] Adm Physician: Ordered by: ALEXUS HAWKINS MD Report #: [id number] Location: ER Room/Bed: Procedure: [id number] DX/CHEST SINGL E (PORTABLE) Exam Date: 03/15/20 Exam Time: 1640 REPORT STATUS: Signed Examination: Single AP view of the chest. COMPARISON: None. INDICATION: Sepsis with for pneumonia, effusions DISCUSSION: Lines/tubes: None. Kinsey ngs: Age-related change. Bibasilar opacities, greater in the right infrahilar region. Pleura: Possible trace effusions. Heart and mediastinum: Th e heart and the mediastinum are unremarkable. Bones and soft tissues: No a cute bony abnormalities. IMPRESSION: Bibasilar airspace opacitie s which may reflect atelectasis and/or infection. Signed by: Dr. Gladys edmonds M.D. on 03/15/2020 5:28 PM Dictated By: GLADYS FORBES MD Electro nically Signed By: GLADYS FORBES MD on 03/15/201727 Transcribed By: HARI on 03/15/201727 COPY TO: ALEXUS HAWKINS MD Urine color hjktolgrwrtvw9574-62-17 16:39:00* Test Item Value Reference Range Interpretation Comments Urine Color (test code = 5778-6) YELLOW YELLOW [facility] HospitalUrine fvftoyw2450-22-03 16:39:00* Test Item Value Reference Range Interpretation Comments Urine Clarity (test code = 49781-4) SL CLOUDY CLEAR [facility] Centerpecific gravity of Urine by Test strip 2020-03-15 16:39:00* Test Item Value Reference Range Interpretation Comments Urine Specific Amery (test code = 5811-5) 1.025 1.010-1.02 5 [facility] HospitalUrine pH measurement by automated test xvtvy5978-96-19 16:39:00* Test Item Value Reference Range Interpretation Comments Urine pH (test code = 20691-0) 6 5-7 [facility] HospitalUrine leukocyte esterase detection by ztbhgpkc9793-70-64 16:39:00* Test Item Value Reference Range Interpretation Comments Urine Leukocyte Esterase (test code = 5799-2) NEGATIVE NEGATIVE [facility] HospitalUrine nitrite tbifhktja7190-82-02 16:39:00* Test Item Value Reference Range Interpretation Comments Urine Nitrite (test code = 39182-0) NEGATIVE NEGATIVE [facility] HospitalUrine protein measurement by test strip (mass/volume)2020-03-15 16:39:00* Test Item Value Reference Range Interpretation Comments Urine Protein (test code = 5804-0) 1+ NEGATIVE [facility] HospitalUrine glucose wbtbdzpyj8874-77-72 16:39:00* Test Item Value Reference Range Interpretation Comments Urine Glucose (UA) (test code = 2349-9) NEGATIVE NEGATIVE [facility] HospitalUrine ketones detection by automated test hcvig8385-20-57 16:39:00* Test Item Value Reference Range Interpretation Comments Urine Ketones (test code = 11153-5) TRACE NEGATIVE [facility] HospitalUrine urobilinogen measurement by test strip (mass/volume)2020-03-15 16:39:00* Test Item Value Reference Range Interpretation Comments Urine Urobilinogen (test code = 41750-0) 1 0.2-1 [facility] HospitalUrine total bilirubin measurement (mass/volume)2020-03-15 16:39:00* Test Item Value Reference Range Interpretation Comments Urine Bilirubin (test code = 1978-6) SMALL NEGATIVE [facility] HospitalUrine erythrocytes gmhdbliir7952-04-25 16:39:00* Test Item Value Reference Range Interpretation Comments Urine Blood (test code = 92792-2) SMALL NEGATIVE [facility] HospitalAutomated urine sediment leukocyte count by microscopy (number/high power field)2020-03-15 16:39:00* Test Item Value Reference Range Interpretation Comments Urine WBC (test code = 5821-4) NONE 0-5 [facility] HospitalErythrocytes detection in urine sediment by light bpwpuiaoou3175-15-21 16:39:00* Test Item Value Reference Range Interpretation Comments Urine RBC (test code = 86255-7) 0-5 0-5 [facility] HospitalBacteria detection in urine sediment by light necbezykft5334-81-49 16:39:00* Test Item Value Reference Range Interpretation Comments Urine Bacteria (test code = 30388-7) MODERATE NONE [facility] HospitalEpithelial cells detection in urine sediment by light owbocldxum0307-79-15 16:39:00* Test Item Value Reference Range Interpretation Comments Urine Epithelial Cells (test code = 02450-1) NONE NONE [facility] HospitalBlood leukocytes automated count (number/volume)2020-03-15 16:05:00* Test Item Value Reference Range Interpretation Comments White Blood Count (test code = 6690-2) 6.26 4.8-10.8 [facility] HospitalBlood erythrocytes automated count (number/volume)2020-03-15 16:05:00* Test Item Value Reference Range Interpretation Comments Red Blood Count (test code = 789-8) 3.49 4.3-5.7 [facility] HospitalBlood hemoglobin measurement (moles/volume)2020-03-15 16:05:00* Test Item Value Reference Range Interpretation Comments Hemoglobin (test code = 91950-9) 11.4 14.0-18.0 [facility] HospitalAutomated blood hematocrit (volume fraction)2020-03-15 16:05:00* Test Item Value Reference Range Interpretation Comments Hematocrit (test code = 4544-3) 33.4 38.2-49.6 [facility] HospitalAutomated erythrocyte mean corpuscular eykddn5126-95-64 16:05:00* Test Item Value Reference Range Interpretation Comments Mean Corpuscular Volume (test code = 787-2) 95.7 81-99 [facility] HospitalAutomated erythrocyte mean corpuscular hemoglobin (mass per erythrocyte)2020-03-15 16:05:00* Test Item Value Reference Range Interpretation Comments Mean Corpuscular Hemoglobin (test code = 785-6) 32.7 28-32 [facility] HospitalAutomated erythrocyte mean corpuscular hemoglobin concentration measurement (mass/volume)2020-03-15 16:05:00* Test Item Value Reference Range Interpretation Comments Mean Corpuscular Hemoglobin Concent (test code = 786-4) 34.1 31-35 [facility] HospitalRDW FgyZn-Tlb8253-53-24 16:05:00* Test Item Value Reference Range Interpretation Comments Red Cell Distribution Width (test code = 26846-9) 13.6 11.7 -14.4 [facility] HospitalAutomated blood platelet count (count/volume)2020-03-15 16:05:00* Test Item Value Reference Range Interpretation Comments Platelet Count (test code = 777-3) 250 140-360 [facility] Hospitaled blood segmented neutrophil count as percentage of total vqihfffljs9006-30-74 16:05:00* Test Item Value Reference Range Interpretation Comments Neutrophils (%) (Auto) (test code = 19842-5) 84.6 38.7-80.0 [facility] HospitalAutomated blood lymphocyte count as percentage ot total vdunpvjxhu3977-46-05 16:05:00* Test Item Value Reference Range Interpretation Comments Lymphocytes (%) (Auto) (test code = 736-9) 8.3 18.0-39.1 [facility] HospitalAutomated blood monocyte count as percentage of total uoizhkwtmk2749-12-77 16:05:00* Test Item Value Reference Range Interpretation Comments Monocytes (%) (Auto) (test code = 5905-5) 6.4 4.4-11.3 [facility] HospitalAutomated blood eosinophil count as percentage of total ocpyvxnwli4947-45-51 16:05:00* Test Item Value Reference Range Interpretation Comments Eosinophils (%) (Auto) (test code = 713-8) 0.2 0.0-6.0 [facility] HospitalAutomated blood basophil count as percentage of total zhyfqqqkml5784-55-06 16:05:00* Test Item Value Reference Range Interpretation Comments Basophils (%) (Auto) (test code = 706-2) 0.2 0.0-1.0 [facility] HospitalFluoroscopic procedure less than one hour mrgpmpva7519-28-62 16:05:00* Test Item Value Reference Range Interpretation Comments IM GRANULOCYTES % (test code = IM GRANULOCYTES %) 0.3 0.0- 1.0 [facility] HospitalAutomated blood neutrophil count 2020-03-15 16:05:00* Test Item Value Reference Range Interpretation Comments Neutrophils # (Auto) (test code = 751-8) 5.3 2.1-6.9 [facility] HospitalBlood lymphocytes count (number/volume) 2020-03-15 16:05:00* Test Item Value Reference Range Interpretation Comments Lymphocytes # (Auto) (test code = 67747-9) 0.5 1.0-3.2 [facility] HospitalBlood monocytes automated count (number/volume)2020-03-15 16:05:00* Test Item Value Reference Range Interpretation Comments Monocytes # (Auto) (test code = 742-7) 0.4 0.2-0.8 [facility] HospitalAutomated blood eosinophil count 2020-03-15 16:05:00* Test Item Value Reference Range Interpretation Comments Eosinophils # (Auto) (test code = 711-2) 0.0 0.0-0.4 [facility] HospitalAutomated blood basophil count (count/volume)2020-03-15 16:05:00* Test Item Value Reference Range Interpretation Comments Basophils # (Auto) (test code = 704-7) 0.0 0.0-0.1 [facility] HospitalFluoroscopic procedure less than one hour naoxlrbm1702-90-88 16:05:00* Test Item Value Reference Range Interpretation Comments Absolute Immature Granulocyte (auto (harrison t code = Absolute Immature Granulocyte (auto) 0.02 0-0.1 [facility] HospitalProthrombin time (PT) in platelet poor plasma by coagulation efxpn4224-95-47 16:05:00* Test Item Value Reference Range Interpretation Comments Prothrombin Time (test code = 5902-2) 15.8 11.9-14.5 [facility] HospitalINR in Platelet poor plasma by Coagulation clmsd9913-80-53 16:05:00* Test Item Value Reference Range Interpretation Comments Prothromb Time International Ratio (test code = 6301-6) 1.19 Oral Anticoagulant Therapy INR Values:1. Low Intensity Therapy 1.5 - 2.02 . Moderate Intensity Therapy 2.0 - 3.03. High Intensity Therapy(1) 2.5 - 3. 54. High Intensity Therapy(2) 3.0 - 4.05. Panic Value INR > 5.0 [facility] HospitalActivated partial thromboplastin time (aPTT) in platelet poor plasma by coagulation cxaov3565-83-26 16:05:00* Test Item Value Reference Range Interpretation Comments Activated Partial Thromboplast Time (test code = 26576-7) 38.3 23.8-35.5 [facility] Centererum or plasma sodium measurement (moles/volume)2020-03-15 16:05:00* Test Item Value Reference Range Interpretation Comments Sodium Level (test code = 2951-2) 134 136-145 [facility] Centererum or plasma potassium measurement (moles/volume)2020-03-15 16:05:00* Test Item Value Reference Range Interpretation Comments Potassium Level (test code = 2823-3) 3.9 3.5-5.1 [facility] Centererum or plasma chloride measurement (moles/volume)2020-03-15 16:05:00* Test Item Value Reference Range Interpretation Comments Chloride Level (test code = 2075-0) 101 98-107 [facility] Centererum or plasma carbon dioxide, total measurement (moles/volume)2020-03-15 16:05:00* Test Item Value Reference Range Interpretation Comments Carbon Dioxide Level (test code = 2028-9) 20 22-29 [facility] Centererum or plasma anion ysd7843-96-90 16:05:00* Test Item Value Reference Range Interpretation Comments Anion Gap (test code = 09885-6) 16.9 8-16 [facility] Centererum or plasma urea nitrogen measurement (mass/volume)2020-03-15 16:05:00* Test Item Value Reference Range Interpretation Comments Blood Urea Nitrogen (test code = 3094-0) 19 7-26 [facility] Centererum or plasma creatinine measurement (mass/volume)2020-03-15 16:05:00* Test Item Value Reference Range Interpretation Comments Creatinine (test code = 2160-0) 0.79 0.72-1.25 [facility] Centererum or plasma urea nitrogen/creatinine mass firtm4521-51-41 16:05:00* Test Item Value Reference Range Interpretation Comments BUN/Creatinine Ratio (test code = 3097-3) 24 6-25 [facility] HospitalEstimated glomerular filtration rate (GFR) bxduqqeqwmksv4910-35-92 16:05:00* Test Item Value Reference Range Interpretation Comments Estimat Glomerular Filtration Rate (test code = 807325913) > 60 >60 Ranges were taken from the National Kidney Disease Education Program and the [facility] [employer] [employer] literature.Reference ranges:60 or greater: Gguyoy05-16 ( for 3 consecutive months): Chronic kidney disease 15 or less: Kidney failureHouston Methodist Willowbrook HospitalGlucose enhhdlwyzly1071-76-74 16:05:00* Test Item Value Reference Range Interpretation Comments Glucose Level (test code = VOV8988) 85 74-118 [facility] Centererum or plasma calcium measurement (mass/volume)2020-03-15 16:05:00* Test Item Value Reference Range Interpretation Comments Calcium Level (test code = 07016-4) 8.4 8.4-10.2 [facility] HospitalFluoroscopic procedure less than one hour haftwabv2046-44-18 16:05:00* Test Item Value Reference Range Interpretation Comments Lactic Acid Level (test code = Lactic Acid Level) 0.7 0.5- 2.0 [facility] total bilirubin measurement (mass/volume)2020-03-15 16:05:00* Test Item Value Reference Range Interpretation Comments Total Bilirubin (test code = 1975-2) 0.3 0.2-1.2 [facility]Fluoroscopic procedure less than one hour jrkbcfsp7313-28-82 16:05:00* Test Item Value Reference Range Interpretation Comments Aspartate Amino Transf (AST/SGOT) (test code = Aspartate Amino Transf (AST/SGOT)) 34 5-34 [facility] alanine aminotransferase measurement (enzymatic activity/volume)2020-03-15 16:05:00* Test Item Value Reference Range Interpretation Comments Alanine Aminotransferase (ALT/SGPT) (test code = 1742-6) 14 0-55 [facility] plasma protein measurement (mass/volume)2020-03-15 16:05:00* Test Item Value Reference Range Interpretation Comments Total Protein (test code = 2885-2) 6.8 6.5-8.1 [facility] albumin measurement (mass/volume)2020-03-15 16:05:00* Test Item Value Reference Range Interpretation Comments Albumin (test code = 1751-7) 3.2 3.5-5.0 [facility] HospitalPlasma globulin measurement (mass/volume) 2020-03-15 16:05:00* Test Item Value Reference Range Interpretation Comments Globulin (test code = 48816-5) 3.6 2.3-3.5 [facility] albumin/globulin mass moofw7945-05-01 16:05:00* Test Item Value Reference Range Interpretation Comments Albumin/Globulin Ratio (test code = 1759-0) 0.9 0.8-2.0 [facility] plasma alkaline phosphatase measurement (enzymatic activity/volume)2020-03-15 16:05:00* Test Item Value Reference Range Interpretation Comments Alkaline Phosphatase (test code = 6768-6) 80 40-150 [facility] plasma creatine kinase measurement (enzymatic activity/volume)2020-03-15 16:05:00* Test Item Value Reference Range Interpretation Comments Creatine Kinase (test code = 2157-6) 695 30-200 [facility] plasma creatine kinase MB measurement (mass/volume)2020-03-15 16:05:00* Test Item Value Reference Range Interpretation Comments Creatine Kinase MB (test code = 97805-4) 1.40 0-5.0 [facility] HospitalTroponin I measurement by highly sensitive enzyme aedopoyftvf1825-91-32 16:05:00* Test Item Value Reference Range Interpretation Comments Troponin I (test code = 62438-1) 0.031 0-0.300 [facility] HospitalFluoroscopic procedure less than one hour izxvvazv7308-30-63 16:05:00* Test Item Value Reference Range Interpretation Comments Lactic Acid Level (test code = Lactic Acid Level) 0.7 0.5- 2.0 [facility] HospitalBlood pilwjvo9041-76-72 16:05:00* Test Item Value Reference Range Interpretation Comments Blood Culture (test code = 18834451) NO GROWTH AFTER 5 DAYS, FINAL REPORT [facility], COMPLETE MIN [id number] 16:00:00 [facility] [address] [address] Patient Name: MARISELA SMITH MR #: [id number] : 1935 Age/Sex: 84/M Req #: [id number] Adm Physician: Ordered by: KAREEM DIXON DO Report #: [id number] Location: ER Room/Bed: Procedure: [id number] DX/SP LUMB AR, COMPLETE MIN 4VW Exam Date: 02/08/20 Exam Time: 1515 REPORT STATUS: Signed EXAMI NATION: THORACIC SP 3V, SP LUMBAR, COMPLETE MIN 4VW INDICATION: Trauma COMPARISON: Lumbar spine CT 05/21/2015 FINDINGS: AP and late ral views of the thoracic spine and AP, lateral and oblique views of the lumba r spine were obtained. Thoracic spine: Loss of vertebral body height at T3 and T4. Remaining vertebral body heights are well preserved. Alignment is brendon omic. Multilevel degenerative changes with disc space narrowing and osteophyte formation. Lumbar spine: Old L2 and L3 compression fractures. Remaining v ertebral body heights are preserved. Grade 1 retrolisthesis at L2-3. Alignment is otherwise anatomic. Marked multilevel degenerative changes with disc space narrowing and osteophyte formation. No definite spondylolysis. IMPRESSIO N: Loss of vertebral body height at T3, T4 of uncertain age. Old L2 and L3 compression fractures. Multilevel degenerative changes. Signed by: João Torrez MD on 02/08/2020 4:08 PM Dictated By: JOÃO TORREZ MD [facility] ically Signed By: JOÃO TORREZ MD on 02/08/20 1608 Transcribed By: HARI on 1608 COPY TO: KAREEM DIXON DO THORACIC SP [id number] 16:00:[address] [address] Patient Name: MARISELA SMITH MR #: [id number] : 1935 Age/Sex: 84/M Req #: [id number] Adm Physician: Ordered by: KAREEM DIXON DO Report #: [id number] Location: ER Room/Bed: Procedure: [id number] DX/THORACI C SP 3V Exam Date: 02/08/20 Exam Time: 1515 REPORT STATUS: Signed EXAMINATION: THOR ACIC SP 3V, SP LUMBAR, COMPLETE MIN 4VW INDICATION: Trauma COMPARI SON: Lumbar spine CT 05/21/2015 FINDINGS: AP and lateral views of the thoracic spine and AP, lateral and oblique views of the lumbar spine were obtained. Thoracic spine: Loss of vertebral body height at T3 and T4. Remai jennifer vertebral body heights are well preserved. Alignment is anatomic. Multile casimiro degenerative changes with disc space narrowing and osteophyte formation. Lumbar spine: Old L2 and L3 compression fractures. Remaining vertebral body heights are preserved. Grade 1 retrolisthesis at L2-3. Alignment is otherwise anatomic. Marked multilevel degenerative changes with disc space narrowing an d osteophyte formation. No definite spondylolysis. IMPRESSION: Loss of vertebral body height at T3, T4 of uncertain age. Old L2 and L3 compressi on fractures. Multilevel degenerative changes. Signed by: João Torrez MD on 02/08/2020 4:08 PM Dictated By: JOÃO TORREZ MD 1608 Transcribed By: HARI on 02/08/20 1608 COPY TO: KAREEM DIXON DO URINALYSIS [id number] 19:45:00* Test Item Value Reference Range Interpretation Comments UA COLOR (test code = COLU) Light-Yellow YELLOW UA APPEARANCE (test code = APPU) CLEAR CLEAR UA GLUCOSE DIPSTICK (test code = DGLUU) NEGATIVE mg/dL NEGATIVE UA BILIRUBIN DIPSTICK (test code = BILU) NEGATIVE mg/dL NEGATIVE UA KETONE DIPSTICK (test code = KETU) NEGATIVE mg/dL NEGATIVE UA SPECIFIC GRAVITY (test code = SGU) 1.012 1.001-1.035 UA BLOOD DIPSTICK (test code = CRISTIAN) Negative mg/dL NEGATIVE UA PH DIPSTICK (test code = ERON) 6.5 5.0-8.0 UA PROTEIN DIPSTICK (test code = PROU) NEGATIVE mg/dL NEGATIVE UA UROBILINIOGEN DIPSTICK (test code = URO) Normal mg/dL NEGATIVE UA NITRITE DIPSTICK (test code = WESTLEY) NEGATIVE NEGATIVE UA LEUKOCYTE ESTERASE W REFLEX (test code = LEUUR) NEGATIVE Nagi/uL NEGATIVE UA WBC (test code = WBCU) 0-5 per HPF 0-5 UA RBC (test code = RBCU) 0-2 #/HPF 0-5 UA EPITHELIAL CELLS (test code = EPIU) None seen per HPF FEW UA BACTERIA (test code = BACU) NONE SEEN #/HPF NONE UA MUCUS (test code = MUCU) FEW #/LPF FEW Urine Source? Clean CatchBASIC METABOLIC [id number] 17:43:00* Test Item Value Reference Range Interpretation Comments SODIUM (test code = NA) 135 mmol/L 136-145 L POTASSIUM (test code = K) 4.3 mmol/L 3.5-5.1 N CHLORIDE (test code = CL) 101.0 mmol/L 98-107 N CARBON DIOXIDE (test code = CO2) 27.0 mmol/L 21-32 N ANION GAP (test code = GAP) 11.3 10-20 N GLUCOSE (test code = GLU) 89 mg/dL 74-106 N BLOOD UREA NITROGEN (test code = BUN) 13 mg/dL 7-18 N GLOMERULAR FILTRATION RATE (test code = GFR) > 60 mL/min >=60 Estimated GFR by using Modified MDRD formula.Chronic kidney disease is defined as either kidney damageor GFR <60 mL/min/1.73 m2 for >3 months. CREATININE (test code = CREAT) 0.80 mg/dL 0.7-1.3 N BUN/CREATININE RATIO (test code = BUN/CREA) 16.3 10-20 N CALCIUM (test code = CA) 8.5 mg/dL 8.5-10.1 N [id number]-[id number] 17:43:00* Test Item Value Reference Range Interpretation Comments TROPONIN-I (test code = TROPI) <0.015 ng/mL 0-0.045 N BASIC METABOLIC [id number] 17:32:00* Test Item Value Reference Range Interpretation Comments SODIUM (test code = NA) 135 mmol/L 136-145 L POTASSIUM (test code = K) 4.3 mmol/L 3.5-5.1 N CHLORIDE (test code = CL) 101.0 mmol/L 98-107 N CARBON DIOXIDE (test code = CO2) mmol/L 21-32 ANION GAP (test code = GAP) 10-20 GLUCOSE (test code = GLU) mg/dL 74-106 BLOOD UREA NITROGEN (test code = BUN) mg/dL 7-18 GLOMERULAR FILTRATION RATE (test code = GFR) mL/min >=60 CREATININE (test code = CREAT) mg/dL 0.7-1.3 BUN/CREATININE RATIO (test code = BUN/CREA) 10-20 CALCIUM (test code = CA) mg/dL 8.5-10.1 [id number]-[id number] 17:32:00* Test Item Value Reference Range Interpretation Comments TROPONIN-I (test code = TROPI) ng/mL 0-0.045 - CT C-SPINE W/O [id number] 17:24:00 Name: MARISELA SMITH [facility] : 1935 Age/S: 84 / M [address] [facility] Unit #: [id number] [place]: [place] [address] Phys: Julian Good MD Acct: [id number] Dis Date: Status: REG ER PHONE #: [phone] Exam Date: 12/25/2019 1650 FAX #: [phone] Reason: neck pain EXAMS: CPT CODE: [id number] CT C-SPINE W/O CONTRAST 00432 EXAM: CT of the cervical spine without contrast; INFORMATION: Neck pain, dizziness; TECHNIQUE AND FINDINGS: CT dose reduction protocol; 2.5 mm axial scans; sagittal and coronal reconstructions. There is moderate narrowing of the disc spaces C5-C7 and mild posterior disc space narrowing at C3-C5. This is associated with intravertebral vacuum phenomenon at C5/6 and C6/7 and with small anterior osteophyte formation. There are small focal calcifications of the posterior longitudinal ligament at C3/4 and C4/5. Otherwise good alignment of the cervical spine. Vertebral bodies, the dens and posterior elements are intact; no evidence of fracture or dislocation. Moderate degenerative changes of facet joints bilaterally. There are compression fractures of T1, T3 and T4. These are probably chronic but T4 is incompletely imaged. If there is a strong clinical s uspicion of acute or subacute fractures of the upper thoracic spine I woul d recommend referral for MRI scan of the T-spine. Paravertebral soft tissu es are unremarkable. Extensive calcifications of the carotid arteries. IMPRESSION: 1. No evidence of acute osseous trauma of the c ervical spine. 2. Degenerative disc disease, spondylosis and facet joint arthropathy. 3. Several compression fractures of the upper thoracic spi ne, probably chronic. Location code: [facility] at 1724 Reported and signed by: Reinaldo Butt M.D. CC: Julian Good MD Technologist:Analisa CHAUDHRY(R); FARIDEH Carey CTDI: DLP: Trnscb Date/Time: 12/25/2019 (1723) [email or web address] Orig Print D/T: S: 12/25/2019 (0047) PAGE 1 Signed Report CBC W/O [id number] 17:23:00* Test Item Value Reference Range Interpretation Comments WHITE BLOOD CELL (test code = WBC) 5.6 K/mm3 4.5-12.5 N RED BLOOD CELL (test code = RBC) 3.75 mill/mm3 4.0-5.8 L HEMOGLOBIN (test code = HGB) 12.1 gram/dL 13.0-17.5 L HEMATOCRIT (test code = HCT) 35.8 % 42.0-52.0 L MEAN CELL VOLUME (test code = MCV) 95.5 fL 80-98 N MEAN CELL HGB (test code = MCH) 32.3 picogram 27.0-33.0 N MEAN CELL HGB CONCETRATION (test code = MCHC) 33.8 gram/dL 33.0-36. 0 N RED CELL DISTRIBUTION WIDTH (test code = RDW) 13.1 % 11.6-16. 2 N PLATELET COUNT (test code = PLT) 276 K/mm3 150-450 N MEAN PLATELET VOLUME (test code = MPV) 8.2 fL 6.7-11.0 N - CT HEAD/BRAIN W/O [id number] 17:17:00 Name: MEASURES,MARISELA [facility] : 1935 Age/S: 84 / M [address] Unit #: [id number] Loc: [place] [address] Phys: Julian Godo MD Acct: [id number] Dis Date: Status: REG ER PHONE #: [phone] Exam Date: 12/25/2019 1645 FAX #: [phone] Reason: vertigo EXAMS: CPT CODE: [id number] CT HEAD/BRAIN W/O CONT 94997 EXAM: CT of the head without contrast; INFORMATION: Vertigo; TECHNIQUE AND FINDINGS: CT dose reduction protocol; 2.5 mm axial scans without contrast. There is no evidence of intra or extra-axial hemorrhage, mass lesions or midline shift. There are mild periventricular and deep white matter hypodensities; otherwise, unremarkable gaspar/white matter differentiation. Ventricles are symmetric and are moderately dilated; prominent sulci and basilar cisterns. Extensive calcifications of the internal carotid arteries. The calvarium is intact. IMPRESSION: 1. No evidence of intracranial hemorrhage or acute territorial infarction. 2. Mild chronic ischemic white matter changes. 3. Moderate atr ophy. Location code: [facility] Electronically S igned by Rossana Butt on 12/25/2019 at 1717 Reported and signed by: Ana Posey CC: Julian Good MD Tech nologist:Analisa Ramires RT(R); FARIDEH Carey CTDI: DLP: Trnscb Date/Ti me: 12/25/2019 (171) tJEMAL Orig Print D/T: S: 2019 (1720) PAGE 1 Signed Report Phenytoin (Dilantin) [id number] 07:42:00* Test Item Value Reference Range Interpretation Comments Phenytoin (Dilantin) Level (test code = 3968-5) 10.51 10-20 Reference Range:10.0-20.0 ug/mlTest [facility] at [facility]hen[facility] [id number] 07:40:00* Test Item Value Reference Range Interpretation Comments Phenobarbital Level (test code = 3948-7) 23.4 Reference Range:15.0-40.0 mcg/mlPERFORMED AT [facility] TMCCHI [facility] [id number] 15:41:00 [facility] [address] [address] Patient Name: MARISELA SMITH MR #: [id number] : 1935 Age/Sex: 83/M Req #: [id number] Adm Physician: KAYLAH ANDERSON MD Ordered by: KAYLAH ANDERSON MD Report #: [id number] Location: [facility] Room/Bed: [address] [address] Procedure: [id number] C T/CT HIP RIGHT WO Exam Date: 10/25/18 Exam Time: 145 0 REPORT STATUS: Signed TECHNIQU E: Computed tomography imaging of the RIGHT HIP was performed WITHOUT injected contrast. Dose modulation, iterative reconstruction, and/or weight based ad justment of the mA/kV was utilized to reduce the radiation dose to as low as r easonably achievable. HISTORY: Right hip pain COMPARISON: None availabl e. FINDINGS: No displaced fracture. No lytic or blastic lesion. 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 No soft tissue mass or fluid collection. Vascular calcificat ions. Mild generalized atrophy. IMPRESSION: No displaced fracture. Mild degenerative arthrosis of the hip Signed by: Ana Valdivia on 10/25/2018 3:45 PM Dictated By: GLADYS FORBES MD Electronically Si gned By: GLADYS FORBES MD on 10/25/18 1549 Transcribed By: HARI on 2682 COPY TO: KAYLAH ANDERSON MD Urine [id number] 05:08:00* Test Item Value Reference Range Interpretation Comments Urine WBC (test code = 5821-4) 0-5 0-5 [facility] [id number] 05:08:00* Test Item Value Reference Range Interpretation Comments Urine RBC (test code = 19902-3) 0-5 0-5 [facility] Swhdtcaa9165-04-26 05:08:00* Test Item Value Reference Range Interpretation Comments Urine Bacteria (test code = 86457-6) NONE NONE [facility] Epithelial Vvwmt2680-29-41 05:08:00 * Test Item Value Reference Range Interpretation Comments Urine Epithelial Cells (test code = 01589-3) RARE NONE [facility] Vkows6795-70-16 04:58:00* Test Item Value Reference Range Interpretation Comments Urine Color (test code = 5778-6) YELLOW YELLOW [facility] Pkdeqju4227-30-94 04:58:00* Test Item Value Reference Range Interpretation Comments Urine Clarity (test code = 48841-0) CLEAR CLEAR [facility] HospitalUrine Specific Uswhzpo7270-87-33 04:58:00 * Test Item Value Reference Range Interpretation Comments Urine Specific Amery (test code = 5811-5) 1.010 1.010-1.02 5 [facility]Urine [id number] 04:58:00* Test Item Value Reference Range Interpretation Comments Urine pH (test code = 93327-1) 7 5-7 [facility] Leukocyte Nfkyacef4217-36-03 04:58:00* Test Item Value Reference Range Interpretation Comments Urine Leukocyte Esterase (test code = 5799-2) NEGATIVE NEGATIVE [facility] Vtvmqmj8753-10-05 04:58:00* Test Item Value Reference Range Interpretation Comments Urine Nitrite (test code = 43260-0) NEGATIVE NEGATIVE [facility] Zzdntkz1365-13-71 04:58:00* Test Item Value Reference Range Interpretation Comments Urine Protein (test code = 5804-0) NEGATIVE NEGATIVE [facility] Glucose (UA)2018-10-25 04:58:00* Test Item Value Reference Range Interpretation Comments Urine Glucose (UA) (test code = 2349-9) NEGATIVE NEGATIVE [facility] HospitalUrine Nphufom9029-92-32 04:58:00* Test Item Value Reference Range Interpretation Comments Urine Ketones (test code = 34538-8) NEGATIVE NEGATIVE [facility] Hospital[facility] Tkadbqmkfhfh3969-24-08 04:58:00* Test Item Value Reference Range Interpretation Comments Urine Urobilinogen (test code = 22104-5) 0.2 0.2-1 [facility] HospitalUrine Lygznqqdb4701-20-58 04:58:00* Test Item Value Reference Range Interpretation Comments Urine Bilirubin (test code = 1978-6) NEGATIVE NEGATIVE [facility] HospitalUrine Qpmxg5281-84-43 04:58:00* Test Item Value Reference Range Interpretation Comments Urine Blood (test code = 50809-5) NEGATIVE NEGATIVE [facility] HospitalCreatine Kinase [id number] 04:49:00* Test Item Value Reference Range Interpretation Comments Creatine Kinase MB (test code = 01999-1) 1.30 0-4.3 [facility] HospitalTroponin [id number] 04:49:00* Test Item Value Reference Range Interpretation Comments Troponin I (test code = 26584-2) < 0.05 0.0-0.40 [facility] HospitalHIP RIGHT 2-3 VW (+/- PELVIS)2018-10-25 04:41:00 [facility] [address] [address] Patient Name: MARISELA SMITH MR #: [id number] : 1935 Age/Sex: 83/M Req #: [id number] Adm Physician: Ordered by: DEE SALAZAR MD Report #: [id number] Location: ER Room/Bed: Procedure: 14 DX/HIP RIGHT 2-3 VW (+/- PELVIS) Exam Date: Ex am Time: REPORT STATUS: Signed HIP RIGHT 2-3 VW (+/- PELVIS) HISTORY: Pain. Fall. COMPARISON: None donna ilable. FINDINGS: Bones: No acute displaced fracture. Osseous alignment is within normal limits. Joints: Mild to moderate degenerative changes of the hips. Soft tissues: The soft tissues appear unremarkable. IMPRESSION: No acute radiographic abnormality. Signed by: DR. Africa Hanks MD on 10/25/2018 4:43 AM Dictated By: ZION HANKS MD Electr onically Signed By: ZION HANKS MD on 10/25/18442 Transcribed By: HARI galdamez 10/25/18442 COPY TO: DEE SALAZAR MD CHEST SINGLE (NOT PORTABLE)2018-10-25 04:39:[address] [address] Patient Name: MARISELA SMITH MR #: [id number] : 1935 Age/Sex: 83/M Req #: [id number] Adm Physician: Ordered by: DEE SALAZAR MD Report #: [id number] Location: ER Room/Bed: Procedure: 15 DX/CHEST SINGLE (NOT PORTABLE) Exam Date: 10/25/18 Exam Time: 354 REPORT STATUS: Signed EXAMINATION: CHEST SINGLE (NOT PORTABLE) INDICATION: weaknes s COMPARISON: Chest x-ray 02/17/2017 FINDINGS: AP view T UBES and LINES: None. LUNGS: Lungs are well inflated. There is no evid ence of pneumonia or pulmonary edema. PLEURA: No pleural effusion or pne umothorax. HEART AND MEDIASTINUM: Stable prominence of the right paratrache al stripe since 02/17/2017 possibly related to mediastinal lipomatosis or vascu lar silhouette given stability. The cardiomediastinal silhouette is otherwise unremarkable. BONES AND SOFT TISSUES: No acute osseous lesion. Soft tissues are unremarkable. UPPER ABDOMEN: No free air under the diaphragm . IMPRESSION: No acute thoracic abnormality. Signed by: DR. Zion Hanks MD on 10/25/2018 4:41 AM Dictated By: ZION HANKS MD Elec tronically Signed By: ZION HANKS MD on 10/25/18440 Transcribed By: HARI on 10/25/18440 COPY TO: DEE SALAZAR MD Sodium Level 2018-10-25 04:20:00* Test Item Value Reference Range Interpretation Comments Sodium Level (test code = 2951-2) 129 136-145 L [facility] HospitalPotassium Wzcnb0789-49-64 04:20:00* Test Item Value Reference Range Interpretation Comments Potassium Level (test code = 2823-3) 3.7 3.5-5.1 [facility] HospitalChloride Xjhml8951-02-43 04:20:00* Test Item Value Reference Range Interpretation Comments Chloride Level (test code = 2075-0) 95 98-107 L [facility] HospitalCarbon Dioxide Sarvo1986-62-64 04:20:00* Test Item Value Reference Range Interpretation Comments Carbon Dioxide Level (test code = 2028-9) 24 22-29 [facility] HospitalAnion Bux3530-71-49 04:20:00* Test Item Value Reference Range Interpretation Comments Anion Gap (test code = 10620-4) 13.7 8-16 [facility] HospitalBlood Urea Afueycet2424-18-30 04:20:00* Test Item Value Reference Range Interpretation Comments Blood Urea Nitrogen (test code = 3094-0) 12 7-26 [facility] HospitalCreatinine2019-03-05 04:20:00* Test Item Value Reference Range Interpretation Comments Creatinine (test code = 2160-0) 0.80 0.72-1.25 [facility] HospitalBUN/Creatinine Tyklb1282-16-88 04:20:00* Test Item Value Reference Range Interpretation Comments BUN/Creatinine Ratio (test code = 3097-3) 15 6-25 [facility] HospitalEstimat Glomerular Filtration Rate 2018-10-25 04:20:00* Test Item Value Reference Range Interpretation Comments Estimat Glomerular Filtration Rate (test code = 551087952) > 60 >60 Ranges were taken from the National Kidney Disease Education Program and the [facility] literature.Reference ranges:60 or greater: Gkfpai50-62 ( for 3 consecutive months): Chronic kidney disease 15 or less: Kidney failureHouston Methodist Willowbrook HospitalGlucose Vcpgb3476-08-48 04:20:00* Test Item Value Reference Range Interpretation Comments Glucose Level (test code = JBX6278) 101 74-118 [facility] HospitalCalcium Mujiq8566-64-38 04:20:00* Test Item Value Reference Range Interpretation Comments Calcium Level (test code = 69239-7) 9.5 8.4-10.2 [facility] HospitalTotal Fgefugnzy3842-62-63 04:20:00* Test Item Value Reference Range Interpretation Comments Total Bilirubin (test code = 1975-2) 0.5 0.2-1.2 [facility] HospitalAspartate Amino Transf (AST/SGOT) 2018-10-25 04:20:00* Test Item Value Reference Range Interpretation Comments Aspartate Amino Transf (AST/SGOT) (test code = Aspartate Amino Transf (AST/SGOT)) 24 5-34 [facility] HospitalAlanine Aminotransferase (ALT/SGPT) 2018-10-25 04:20:00* Test Item Value Reference Range Interpretation Comments Alanine Aminotransferase (ALT/SGPT) (test code = 1742-6) 15 0-55 [facility] HospitalTotal Iuhfmwk4207-81-82 04:20:00* Test Item Value Reference Range Interpretation Comments Total Protein (test code = 2885-2) 7.0 6.5-8.1 [facility] HospitalAlbumin2019-03-05 04:20:00* Test Item Value Reference Range Interpretation Comments Albumin (test code = 1751-7) 3.7 3.5-5.0 [facility] HospitalGlobulin2019-03-05 04:20:00* Test Item Value Reference Range Interpretation Comments Globulin (test code = 45474-8) 3.3 2.3-3.5 [facility] HospitalAlbumin/Globulin Xffok4156-30-11 04:20:00 * Test Item Value Reference Range Interpretation Comments Albumin/Globulin Ratio (test code = 1759-0) 1.1 0.8-2.0 [facility] HospitalAlkaline Rrlijxyrsfb8325-75-75 04:20:00* Test Item Value Reference Range Interpretation Comments Alkaline Phosphatase (test code = 6768-6) 92 40-150 [facility] HospitalCreatine Yizzpp2686-95-87 04:20:00* Test Item Value Reference Range Interpretation Comments Creatine Kinase (test code = 2157-6) 99 30-200 [facility] HospitalWhite Blood Epwfh7623-47-69 03:56:00* Test Item Value Reference Range Interpretation Comments White Blood Count (test code = 6690-2) 7.80 4.8-10.8 [facility] HospitalRed Blood Iviyk7180-74-11 03:56:00* Test Item Value Reference Range Interpretation Comments Red Blood Count (test code = 789-8) 3.53 4.3-5.7 L [facility] HospitalHemoglobin2019-03-05 03:56:00* Test Item Value Reference Range Interpretation Comments Hemoglobin (test code = 43387-1) 11.8 14.0-18.0 L [facility] 03:56:00* Test Item Value Reference Range Interpretation Comments Hematocrit (test code = 4544-3) 33.7 38.2-49.6 L [facility]Mean Corpuscular Whsrrg5400-09-09 03:56:00* Test Item Value Reference Range Interpretation Comments Mean Corpuscular Volume (test code = 787-2) 95.5 81-99 [facility] Corpuscular Iuhqbhkoka2409-24-13 03:56:00* Test Item Value Reference Range Interpretation Comments Mean Corpuscular Hemoglobin (test code = 785-6) 33.4 28-32 H [facility] Hemoglobin Concent 2018-10-25 03:56:00* Test Item Value Reference Range Interpretation Comments Mean Corpuscular Hemoglobin Concent (test code = 786-4) 35.0 31-35 [facility]Red Cell Distribution Bkgef3776-01-39 03:56:00* Test Item Value Reference Range Interpretation Comments Red Cell Distribution Width (test code = 61309-0) 12.5 11.7 -14.4 [facility] HospitalPlatelet Luhro0397-62-83 03:56:00* Test Item Value Reference Range Interpretation Comments Platelet Count (test code = 777-3) 214 140-360 [facility] HospitalNeutrophils (%) (Auto)2018-10-25 03:56:00 * Test Item Value Reference Range Interpretation Comments Neutrophils (%) (Auto) (test code = 94358-2) 72.8 38.7-80.0 [facility] HospitalLymphocytes (%) (Auto)2018-10-25 03:56:00 * Test Item Value Reference Range Interpretation Comments Lymphocytes (%) (Auto) (test code = 736-9) 11.5 18.0-39.1 L [facility] HospitalMonocytes (%) (Auto)2018-10-25 03:56:00* Test Item Value Reference Range Interpretation Comments Monocytes (%) (Auto) (test code = 5905-5) 10.5 4.4-11.3 [facility]Eosinophils (%) (Auto)2018-10-25 03:56:00 * Test Item Value Reference Range Interpretation Comments Eosinophils (%) (Auto) (test code = 713-8) 4.4 0.0-6.0 [facility]Basophils (%) (Auto)2018-10-25 03:56:00* Test Item Value Reference Range Interpretation Comments Basophils (%) (Auto) (test code = 706-2) 0.3 0.0-1.0 [facility] HospitalIM GRANULOCYTES %2018-10-25 03:56:00* Test Item Value Reference Range Interpretation Comments IM GRANULOCYTES % (test code = IM GRANULOCYTES %) 0.5 0.0- 1.0 [facility] HospitalNeutrophils # (Auto)2018-10-25 03:56:00* Test Item Value Reference Range Interpretation Comments Neutrophils # (Auto) (test code = 751-8) 5.7 2.1-6.9 [facility] HospitalLymphocytes # (Auto)2018-10-25 03:56:00* Test Item Value Reference Range Interpretation Comments Lymphocytes # (Auto) (test code = 67936-7) 0.9 1.0-3.2 L [facility] HospitalMonocytes # (Auto)2018-10-25 03:56:00* Test Item Value Reference Range Interpretation Comments Monocytes # (Auto) (test code = 742-7) 0.8 0.2-0.8 [facility]Eosinophils # (Auto)2018-10-25 03:56:00* Test Item Value Reference Range Interpretation Comments Eosinophils # (Auto) (test code = 711-2) 0.3 0.0-0.4 [facility] HospitalBasophils # (Auto)2018-10-25 03:56:00* Test Item Value Reference Range Interpretation Comments Basophils # (Auto) (test code = 704-7) 0.0 0.0-0.1 [facility] HospitalAbsolute Immature Granulocyte (auto 2018-10-25 03:56:00* Test Item Value Reference Range Interpretation Comments Absolute Immature Granulocyte (auto (harrison t code = Absolute Immature Granulocyte (auto) 0.04 0-0.1 [facility]
--- OUTSIDE RECORDS SUMMARY | 2020-03-22 19:06 | XMS REPORT | Continuity of Care Document ---
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 The patient has well controlled epilepsy life long. Originally documented as Generalized convulsive epilepsy. Data migrated from [facility] on 09/27/2016. The patient has well controlled epilepsy life long. Originally documented as Generalized convulsive epilepsy. Data migrated from [facility] on 09/09/15. The patient has well controlled epilepsy life long. Originally documented as Generalized convulsive epilepsy. 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 The patient has a severe motor sensory iPN. I again recommended AFOs. This time, he was willing to go. 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 [facility] Compression fracture of vertebral column (disorder) Active 05/28/2015 Problem 03/30/2019 Data migrated from [facility] on 09/09/15. The patient describes recent fall related VCFs. His pain is much better and Dr. Box is managing the problem appropriately. Originally documented as Vertebral compression fracture. [facility] Peripheral vertigo (disorder) Active 01/22/2014 Problem 03/30/2019 Data migrated from [facility] on 09/09/15. Originally documented as Vertigo, peripheral. [...] 1 Refill(s), called to pharmacy Active 02/15/2018 [facility] gabapentin 100 MG Oral Capsule 200 mg = 2 cap, PO, Bedtime, # 180 cap, 3 Refill(s), NIKIA, Pharmacy: [facility] [employer] [facility] [id number] Active 12/22/2017 [facility] phenytoin 100 mg oral capsule, extended release 300 mg = 3 cap, PO, Bedtime, # 270 cap, 3 Refill(s), Pharmacy: [facility] [employer] [facility] [id number] Active 12/22/2017 [facility] PHENobarbital 30 mg oral tablet 30 [...] Known Medication Allergies Assertion Drug aller gy [facility] Immunizations No Data Provided for This [...] ADM Date DC Date Status Source Outpatient [id number] [facility] 04/23/2016 Active [facility] Outpatient [id number] [facility] 10/21/2016 Active [facility] Outpatient [id number] [facility] 04[facility]27/2017 [facility] [id number] 10/25/2017 Active [facility] Ambulatory Pre-Reg [id number] Jonas Henrik 10/25/2017 10/25/2017 [facility] Phone Message [id number] 11/08/2017 11/10/2017 [facility] Outpatient [id number] [facility] 12/22/2017 [facility] Outpatient [id number] [facility] 12/22/2017 12/23/2017 [facility] Phone Message [id number] 01/04/2018 01/06/2018 [facility] Phone Message [id number] 01/06/2018 01/08/2018 [facility] Phone Message [id number] 01/25/2018 01/27/2018 [facility] Outpatient [id number] ESPERANZA GORDILLO 02/03/2018 Active [facility] Outpatient [id number] [facility] 02/03/2018 02/04/2018 [facility] Phone Message [id number] 02/15/2018 02/17/2018 [facility] Outpatient [id number] [facility] 06/23/2018 [facility] [id number] [facility] 06/23/2018 06/24/2018 [facility] Phone Message [id number] 08/18/2018 08/20/2018 [facility] Phone Message [id number] 08/19/2018 08/21/2018 [facility] Outpatient [id number] ESPERANZA GORDILLO 09/05/2018 Active [facility] Ambulatory Pre-Reg [id number] Josi Klein 09/05/2018 09/05/2018 [facility] Phone Message [id number] 12/07/2018 12/09/2018 [facility] Phone Message [id number] 12/07/2018 12/09/2018 [facility] Phone Message [id number] 12/19/2018 12/21/2018 [facility] Outpatient [id number] JONAS ALVAREZ 12/21/2018 Active [facility] Neurology [facility] Ambulatory Pre-Reg [id number] Jonas Alvarez 12/21/2018 12/21/2018 [facility] Outpatient [id number] Jonas Alvarez 03/28/2019 Active [facility] Neurology [facility] Ambulatory Pre-Reg [id number] Jonas Alvarez 03/28/2019 03/28/2019 [facility] Procedures Procedure Code Date Perfomer Comments Source Tonsillectomy [id number] 08/23/1937 [facility] Cataract surgery [id number] [facility] Complicated cataract surgery 3 [id number] [facility] Assessment and Plan No Data Provided [...] Cessation Counseling No entered on: 06/23/18 12/22/2017 [facility] Family History No Data Provided for This Section Advance Directives No Data Provided for This Section Functional Status No Data Provided for This Section
--- OUTSIDE RECORDS SUMMARY | 2020-03-22 19:07 | XMS REPORT | Continuity of Care Document ---
Author Author [facility] t Organization [facility] Address [address] [place] [address] Phone Unavailable Care Team Providers Care Reagent Tender Helper Name Role Phone MD SANDRA HOOVER PCP SANDRA HOOVER Attphys Unavailable ROSS, T VAUGHAN Attphys Unavailable SANDHIR, S AMBICA Attphys Unavailable Henrik, Baldo Jonas Attphys JUSTIN, KAYLAH Attphys Unavailable Carpio, Tova Attphys Henrik, S Jonas Attphys HOOVER, SOUHEIL Admphys Unavailable JUSTIN, KAYLAH Admphys Unavailable Payers Payer Name Policy Type Policy Number Effective Date Expiration Date James munoz EBONY [id number] 2019 00:00:00 [facility] Medicare A & B [id number] 2000 00:00:00 [facility] Problems Condition Name Condition Details Condition Category Status Onset Date Resolution Date Last Treatment Date Treating Clinician Comments Source 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 The patient has well controlled epilepsy life long. Originally documented as Generalized convulsive epilepsy.Data migrated from [employer] on 09/27/2016. The patient has well controlled epilepsy life long. Originally documented as Generalized convulsive epilepsy.Data migrated from [employer] on 09/09/15. The patient has well controlled epilepsy life long. Originally documented as Generalized convulsive epilepsy. 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 The patient has a severe motor sensory iPN. I again recommended AFOs. This time, he was willing to go. 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 [facility] Problem Active 2016-04-23 00:00:00 2019-03-30 22:22:48 Crystal Dylon Compression fracture of vertebral column (disorder) Compression fracture of vertebral column (disorder) Active 05/28/2015 Problem 03/30/2019 Data migrated from [employer] on 09/09/15. The patient describes recent fall related VCFs. His pain is much better and Dr. Box is managing the problem appropriately. Originally documented as Vertebral compression fracture. [facility] Active 2015-05-28 00:00:00 2019-03-30 22:22:48 [facility] Peripheral vertigo (disorder) Peripheral vertigo (disorder) Active 01/22/2014 Problem 03/30/2019 Data migrated from [employer] on 09/09/15. Originally documented as Vertigo, peripheral. [facility] Active 2014-01-22 00:00:00 2019-03-30 22:22:48 [facility] Abrasion Abrasion Problem Active [facility] Closed head injury Closed head injury Problem Active [facility] Decreased activities of daily living (ADL) Decreased a ctivities of daily living (ADL) Problem Active [facility] Weakness Generalized weakness Problem Active [facility] Back pain Problem Active [facility] Right middle lobe pneumonia Problem Active [facility] Respiratory distress Problem Active [facility] Altered mental status Problem Active [facility] Sepsis Problem Active [facility] Infection due to severe acute respiratory syndrome coronavir us 2 (SARS-CoV-2) Problem Active [facility] Fever Problem Active [facility] Viral pneumonia Problem Active [facility] Hypoxemia requiring supplemental oxygen Problem Active [facility] Squamous cell carcinoma of skin (disorder) Squamous cell carcinoma of skin (disorder) Resolved Problem 03/30/2019 [facility] Problem Resolved 2019-03-30 22:22:48 Imelda Osborne Epilepsy (disorder) Epil epsy (disorder) Active Problem 03/30/2019 [facility] Active 2019-03-30 22:22:48 Crystal Osborne Allergies, Adverse Reactions, Alerts Allergy Name Allergy Type Status Severity Reaction(s) Onset Date Inacti ve Date Treating Clinician Comments Source No Known Allergies DA Active U 2019-12-25 00:00:00 [facility] No Known Contrast Allergies DA Active U 2008-05-04 00:00: 00 [facility] No Known Drug Allergies DA Active U 2008-05-04 00:00:00 [facility] No Known Food Allergies DA Active U 2008-05-04 00:00:00 [facility] No Known Other Allergies DA Active U 2008-05-04 00:00:00 [facility] No Known Medication Allergies No Known Medication Allergies Active Crystal Osborne Social History Social Habit Start Date Stop Date Quantity Comments Source Social History 2017-12-22 21:15:15 2017-12-22 21:15:15 Crystal Osborne Sex Assigned At 1935 00:00:00 1935 00:00:00 Male [facility] Medications Ordered Medication Name Filled Medication Name [...] # 180 cap, 3 Refill(s), NIKIA, Pharmacy: [facility] [id number] Crystal Osborne phenytoin 100 mg oral capsule, extended release 2017-12-22 21:48 :42 Yes 300 mg = 3 cap, PO, Bedtime, # 270 cap, 3 Refill(s), Pharmacy: [facility] [id number] Crystal Osborne PHENobarbital 30 mg oral tablet 2017-12-22 21:48:35 Yes 30 mg = 1 tab, PO, TID, # 270 tab, 3 [facility]ill[facility] mg oral tablet 2017-11-08 15:25:20 No 30 mg = 1 tab, PO, TID, # 270 tab, 0 Refill(s), [facility] Cefepime Hcl/D5w (Cefepime-Dextrose 1 Gm/50 Ml) 1 Gm/5 0 Ml PIGGYBACK Cefepime Hcl/D5w (Cefepime-Dextrose 1 Gm/50 Ml) 1 Gm/50 Ml PIGGYBACK Yes 1 Every 8 Hours [facility] Gabapentin (Neurontin) 100 Mg CAPSULE Gabapentin (Neurontin) 100 Mg CAPSULE Yes 200 Bedtime [facility] Lisinopril (Prinavil / Zestril) 20 Mg TABLET Lisinopri l (Prinavil / Zestril) 20 Mg TABLET Yes 20 Daily [facility] Meclizine Hcl Meclizine Hcl Yes 12.5 Every 8 Hours as needed for Nausea And Vomiting [facility] Phenobarbital Phenobarbital Yes 90 Hs [facility] Phenytoin Sodium Extended (Dilantin) 100 Mg CAPSULE Ph enytoin Sodium Extended (Dilantin) 100 Mg CAPSULE Yes 300 Hs [facility] Aspirin Aspirin 2020-03-19 00:00:00 No 81 Daily [facility] Dilantin Dilantin 2015-05-21 00:00:00 No Hs [facility] Vital Signs Vital Name Observation Time Observation Value Comments Source Body Temperature 2020-03-20 13:05:00 98.4 [degF] [facility] Weight 2020-03-20 05:12:00 160.38 [lb_av] [facility] BMI (Body Mass Index) 2020-03-20 05:12:00 20.0 kg/m2 [facility] Weight 2020-03-15 16:00:00 175 [lb_av] [facility] BMI (Body Mass Index) 2020-03-15 16:00:00 21.9 kg/m2 [facility] Weight 2020-02-08 14:33:00 175 [lb_av] [facility] BMI (Body Mass Index) 2020-02-08 14:33:00 21.9 kg/m2 [facility] BMI Calculated 2018-02-03 15:53:00 Memori al Dylon Weight 2018-02-03 15:53:00 [facility] Height 2018-02-03 15:53:00 190.5 cm [facility] Heart Rate 2018-02-03 15:53:00 [facility] Systolic (mm Hg) 2018-02-03 15:53:00 Aurelio rial [facility] Diastolic (mm Hg) 2018-02-03 15:53:00 [facility] Weight 2017-12-22 21:00:00 [facility] Heart Rate 2017-12-22 21:00:00 [facility] Systolic (mm Hg) 2017-12-22 21:00:00 [facility] [place] Diastolic (mm Hg) 2017-12-22 21:00:00 [facility] [place] Procedures Procedure Date / Time Performed Performing Clinician Paulette quiroga Tonsillectomy 1937-08-23 00:00:00 [facility] Cataract surgery [facility] n Complicated cataract surgery Mem [facility] [place] Encounters Start Date/Time End Date/Time Encounter Type Admission Type Attendi [facility] Care Department Encounter ID Source 2020-03-19 04:04:00 2020-03-20 22:21:00 Discharged Inpatient 1 HOOVERSANDRA Rios [facility] [id number] [facility] 2020-03-15 16:20:00 2020-03-15 20:10:00 Departed Emergency Room ALEXUS HAWKINS [facility] [id number] [facility] 2020-02-08 14:39:00 2020-02-08 19:07:00 Departed Emergency Room 1 KAREEM DIXON [facility] [id number] [facility] 2019-03-28 15:45:00 2019-03-28 15:45:00 Outpatient Henrik, P hilip Baldo [facility] [id number] 2018-12-21 11:40:00 2018-12-21 11:40:00 [place]patient [place], P hilip Baldo [facility] [id number] 2018-12-19 11:55:30 2018-12-20 23:59:59 Outpatient MHMIS KAYDEN [facility] [id number] 2018-12-07 12:24:00 2018-12-08 23:59:59 Outpatient MHMIS KAYDEN [facility] [id number] 2018-12-07 12:15:00 2018-12-08 23:59:59 Outpatient MHMIS KAYDEN [facility] [id number] 2018-10-25 07:17:00 2018-10-25 21:10:00 Discharged Inpatient (obs) 1 KAYLAH ANDERSON [facility] [id number] [facility] 2018-09-05 13:00:00 2018-09-05 13:00:00 Outpatient Jesus Carpio [facility] [id number] 2018-09-02 12:38:00 2018-09-02 12:38:00 Registered Clinic [facility] [id number] [facility] 2018-08-19 07:32:00 2018-08-20 23:59:59 Outpatient MHMIS KAYDEN MHMISCHER [id number] 2018-08-18 11:16:00 2018-08-19 23:59:59 Outpatient MHMIS KAYDEN [facility] [id number] 2018-06-23 11:45:00 2018-06-23 23:59:59 Outpatient Henrik, P hilip Baldo [facility] [id number] 2018-02-15 10:09:00 2018 23:59:59 Outpatient MHMIS KAYDEN M[facility]ISCH[facility] [id number] 2018-02-03 10:30:00 2018-02-03 23:59:59 Outpatient Henrik, P hilip Baldo [facility] [id number] 2018-01-25 10:34:00 2018-01-26 23:59:59 Outpatient MHMIS KAYDEN [facility] [id number] 2018-01-06 11:31:00 2018-01-07 23:59:59 Outpatient MHMIS KAYDEN [facility] [id number] 2018-01-04 16:12:00 2018-01-05 23:59:59 Outpatient MHMIS KAYDEN M[facility] [id number] 2017-12-22 15:15:00 2017-12-22 23:59:59 Outpatient Henrik, P hilip Baldo [facility] [id number] 2017-12-22 15:15:00 2017-12-22 23:59:59 Outpatient Henrik, P hilip Baldo [facility] [id number] 2017-11-08 08:41:00 2017-11-09 23:59:59 Outpatient MHMIS KAYDEN MHMISCHER [id number] 2017-10-25 12:45:00 2017-10-25 12:45:00 Outpatient Henrik, Phi lip S [facility] [id number] 2017-10-25 12:45:00 2017-10-25 12:45:00 Outpatient [place], Phi lip S [facility] [id number] Results Test Description Test Time Test Comments Results Result Comments Source CHEST SINGLE (PORTABLE) 2020-03-20 08:35:00 [place] [address] Patient Name: MARISELA SMITH MR #: [id number] : 1935 Age/Sex: 85/M Req #: [id number] Adm Physician: SANDRA HOOVER MD Ordered by: MINERVA LASSITER MD Report #: [id number] Location: [facility] Room/Bed: [place] [address] Procedure: [id number] DX/CHEST SINGLE (PORTABLE) Exam Date: 03/20/20 Exam [...] Count (test code = 6690-2) 22.19 4.8-10.8 [facility] erythrocytes automated count (number/volume)2020-03-20 04:57:00* Test Item Value Reference Range Interpretation Comments Red Blood Count (test code = 789-8) 4.04 4.3-5.7 [facility] hemoglobin measurement (moles/volume)2020-03-20 04:57:00* Test Item Value Reference Range Interpretation Comments Hemoglobin (test code = 72029-3) 12.9 14.0-18.0 [facility] TexasAutomated blood hematocrit (volume fraction)2020-03-20 04:57:00* Test Item Value Reference Range Interpretation Comments Hematocrit (test code = 4544-3) 39.3 38.2-49.6 [facility] TexasAutomated erythrocyte mean corpuscular [id number] 04:57:00* Test Item Value Reference Range Interpretation Comments Mean Corpuscular Volume (test code = 787-2) 97.3 81-99 [facility] Texas[facility] erythrocyte mean corpuscular hemoglobin (mass per erythrocyte)2020-03-20 04:57:00* Test Item Value Reference Range Interpretation Comments Mean Corpuscular Hemoglobin (test code = 785-6) 31.9 28-32 [facility] Texas[facility] erythrocyte mean corpuscular hemoglobin concentration measurement (mass/volume)2020-03-20 04:57:00* Test Item Value Reference Range Interpretation Comments Mean Corpuscular Hemoglobin Concent (test code = 786-4) 32.8 31-35 [facility] TexasRDW PygZp-Sht0547-00-29 04:57:00* Test Item Value Reference Range Interpretation Comments Red Cell Distribution Width (test code = 97102-7) 14.1 11.7 -14.4 [facility] TexasAutom[facility] blood platelet count (count/volume)2020-03-20 04:57:00* Test Item Value Reference Range Interpretation Comments Platelet Count (test code = 777-3) 221 140-360 [facility] TexasAutomated blood segmented neutrophil count as percentage of total txhcdsqicz4219-47-12 04:57:00* Test Item Value Reference Range Interpretation Comments Neutrophils (%) (Auto) (test code = 38833-2) 90.8 38.7-80.0 [facility] TexasAutom[facility] blood lymphocyte count as percentage ot total gyrvevmhjy9252-53-45 04:57:00* Test Item Value Reference Range Interpretation Comments Lymphocytes (%) (Auto) (test code = 736-9) 6.0 18.0-39.1 [facility] TexasAutomated blood monocyte count as percentage of total wqiunggqnu1786-46-43 04:57:00* Test Item Value Reference Range Interpretation Comments Monocytes (%) (Auto) (test code = 5905-5) 1.9 4.4-11.3 [facility] TexasAutom[facility] blood eosinophil count as percentage of total sycrxnrxkj5645-27-23 04:57:00* Test Item Value Reference Range Interpretation Comments Eosinophils (%) (Auto) (test code = 713-8) 0.1 0.0-6.0 [facility] TexasAutom[facility] blood basophil count as percentage of total gbylguywwl9515-71-84 04:57:00* Test Item Value Reference Range Interpretation Comments Basophils (%) (Auto) (test code = 706-2) 0.2 0.0-1.0 [facility] TexasFluoroscopic procedure less than one hour bicayplq8427-26-65 04:57:00* Test Item Value Reference Range Interpretation Comments IM GRANULOCYTES % (test code = IM GRANULOCYTES %) 1.0 0.0- 1.0 [facility] TexasAutom[facility] blood neutrophil count 2020-03-20 04:57:00* Test Item Value Reference Range Interpretation Comments Neutrophils # (Auto) (test code = 751-8) 20.1 2.1-6.9 [facility] Texas[facility] lymphocytes count (number/volume) 2020-03-20 04:57:00* Test Item Value Reference Range Interpretation Comments Lymphocytes # (Auto) (test code = 29914-7) 1.3 1.0-3.2 [facility] TexasBlood monocytes automated count (number/volume)2020-03-20 04:57:00* Test Item Value Reference Range Interpretation Comments Monocytes # (Auto) (test code = 742-7) 0.4 0.2-0.8 [facility] TexasAutom[facility] blood eosinophil count 2020-03-20 04:57:00* Test Item Value Reference Range Interpretation Comments Eosinophils # (Auto) (test code = 711-2) 0.0 0.0-0.4 [facility] TexasAutomated blood basophil count (count/volume)2020-03-20 04:57:00* Test Item Value Reference Range Interpretation Comments Basophils # (Auto) (test code = 704-7) 0.1 0.0-0.1 [facility] TexasFluoroscopic procedure less than one hour eipcqruf3597-47-72 04:57:00* Test Item Value Reference Range Interpretation Comments Absolute Immature Granulocyte (auto (harrison t code = Absolute Immature Granulocyte (auto) 0.23 0-0.1 [facility] TexasFluoroscopic procedure less than one hour rfwqxvrz7689-41-73 04:57:00* Test Item Value Reference Range Interpretation Comments Differential Total Cells Counted (test code = Bernie lara Total Cells Counted) 100 [facility] blood neutrophils/100 leukocytes 2020-03-20 04:57:00* Test Item Value Reference Range Interpretation Comments Neutrophils % (Manual) (test code = 95932-7) 90 40-74 [facility] blood band neutrophils form/100 omvszgvxfi5233-84-85 04:57:00* Test Item Value Reference Range Interpretation Comments Band Neutrophils % (test code = 764-1) 4 [facility] blood lymphocytes/100 leukocytes 2020-03-20 04:57:00* Test Item Value Reference Range Interpretation Comments Lymphocytes % (Manual) (test code = 737-7) 5 19-48 [facility] blood monocytes/100 leukocytes 2020-03-20 04:57:00* Test Item Value Reference Range Interpretation Comments Monocytes % (Manual) (test code = 744-3) 1 3.4-9.0 [facility] sodium measurement (moles/volume)2020-03-20 04:57:00* Test Item Value Reference Range Interpretation Comments Sodium Level (test code = 2951-2) 134 136-145 [facility] potassium measurement (moles/volume)2020-03-20 04:57:00* Test Item Value Reference Range Interpretation Comments Potassium Level (test code = 2823-3) 5.3 3.5-5.1 [facility] chloride measurement (moles/volume)2020-03-20 04:57:00* Test Item Value Reference Range Interpretation Comments Chloride Level (test code = 2075-0) 103 98-107 [facility] carbon dioxide, total measurement (moles/volume)2020-03-20 04:57:00* Test Item Value Reference Range Interpretation Comments Carbon Dioxide Level (test code = 2028-9) 17 22-29 [facility] anion trp6750-03-44 04:57:00* Test Item Value Reference Range Interpretation Comments Anion Gap (test code = 79416-4) 19.3 8-16 [facility] urea nitrogen measurement (mass/volume)2020-03-20 04:57:00* Test Item Value Reference Range Interpretation Comments Blood Urea Nitrogen (test code = 3094-0) 39 7-26 [facility] creatinine measurement (mass/volume)2020-03-20 04:57:00* Test Item Value Reference Range Interpretation Comments Creatinine (test code = 2160-0) 1.43 0.72-1.25 [facility] urea nitrogen/creatinine mass migff5273-63-06 04:57:00* Test Item Value Reference Range Interpretation Comments BUN/Creatinine Ratio (test code = 3097-3) 27 6-25 [facility] TexasEstimated glomerular filtration rate (GFR) smyhwtlzmpzdw0682-65-21 04:57:00* Test Item Value Reference Range Interpretation Comments Estimat Glomerular Filtration Rate (test code = 490813425) 47 >60 Ranges were taken from the National Kidney Disease Education Program and the [place]ina counts include [facility] literature.Reference ranges:60 or greater: Efoalg23-29 ( for 3 consecutive months): Chronic kidney disease 15 or less: Kidney failureD[facility] at [facility] of TexasGlucose puqoadpplsq7339-82-37 04:57:00* Test Item Value Reference Range Interpretation Comments Glucose Level (test code = CAN2643) 174 74-118 [facility] calcium measurement (mass/volume)2020-03-20 04:57:00* Test Item Value Reference Range Interpretation Comments Calcium Level (test code = 72544-1) 7.7 8.4-10.2 [facility] total bilirubin measurement (mass/volume)2020-03-20 04:57:00* Test Item Value Reference Range Interpretation Comments Total Bilirubin (test code = 1975-2) 0.2 0.2-1.2 [facility] TexasFluoroscopic procedure less than one hour frinjxvt6950-67-33 04:57:00* Test Item Value Reference Range Interpretation Comments Aspartate Amino Transf (AST/SGOT) (test code = Aspartate Amino Transf (AST/SGOT)) 58 5-34 [facility] plasma alanine aminotransferase measurement (enzymatic activity/volume)2020-03-20 04:57:00* Test Item Value Reference Range Interpretation Comments Alanine Aminotransferase (ALT/SGPT) (test code = 1742-6) 26 0-55 [facility] protein measurement (mass/volume)2020-03-20 04:57:00* Test Item Value Reference Range Interpretation Comments Total Protein (test code = 2885-2) 5.7 6.5-8.1 [facility] albumin measurement (mass/volume)2020-03-20 04:57:00* Test Item Value Reference Range Interpretation Comments Albumin (test code = 1751-7) 1.9 3.5-5.0 [facility] TexasPlasma globulin measurement (mass/volume) 2020-03-20 04:57:00* Test Item Value Reference Range Interpretation Comments Globulin (test code = 67875-8) 3.8 2.3-3.5 [facility] albumin/globulin mass tpeyg6834-67-79 04:57:00* Test Item Value Reference Range Interpretation Comments Albumin/Globulin Ratio (test code = 1759-0) 0.5 0.8-2.0 [facility] plasma alkaline phosphatase measurement (enzymatic activity/volume)2020-03-20 04:57:00* Test Item Value Reference Range Interpretation Comments Alkaline Phosphatase (test code = 6768-6) 54 40-150 [facility] plasma creatine kinase measurement (enzymatic activity/volume)2020-03-20 04:57:00* Test Item Value Reference Range Interpretation Comments Creatine Kinase (test code = 2157-6) 298 30-200 [facility] plasma creatine kinase MB measurement (mass/volume)2020-03-20 04:57:00* Test Item Value Reference Range Interpretation Comments Creatine Kinase MB (test code = 63274-6) 5.00 0-5.0 [facility] TexasTroponin I measurement by highly sensitive enzyme bqqogyxsudq5211-46-22 04:57:00* Test Item Value Reference Range Interpretation Comments Troponin I (test code = 27537-6) 0.057 0-0.300 [facility] TexasCapillary blood glucose measurement by glucometer (mass/volume)2020-03-19 16:16:00* Test Item Value Reference Range Interpretation Comments Bedside Glucose (test code = 76693-8) 207 70-120 Meter ID: [id number] [place] [address]VIEW (KUB) 2020-03-19 11:42:00 [place] [address] Patient Name: MARISELA SMITH MR #: [id number] : 1935 Age/Sex: 85/M Req #: [id number] Adm Physician: SANDRA HOOVER MD Ordered by: MINERVA LASSITER MD Report #: [id number] Location: [facility] Room/Bed: [place] [address] Procedure: [id number] DX/ABDOMEN-1VIE W (KUB) Exam Date: 03/19/20 Exam [...] By: HARI on 03/19/20 1146 COPY TO: MINREVA LASSITER MD CHEST SINGLE (PORTABLE)2020-03-19 11:42:00 [place] [address] Patient Name: MARISELA SMITH MR #: [id number] : 1935 Age/Sex: 85/M Req #: [id number] Adm Physician: SANDRA HOOVER MD Ordered by: MINERVA LASSITER MD Report #: [id number] Location: [facility] Room/Bed: [place] [address] Procedure: [id number] DX/CHEST SINGLE (PORTABLE) Exam Date: 03/19/20 Exam [...] TO: MINERVA LASSITER MD Arterial blood pH kmifypwxsnj0761-94-50 03:30:00* Test Item Value Reference Range Interpretation Comments Arterial Blood pH (test code = 2744-1) 7.37 7.35-7.45 [facility] TexaspCO2 SwuW0585-66-68 03:30:00* Test Item Value Reference Range Interpretation Comments Arterial Blood Partial Pressure CO2 (test code = 2018-) 35 35-45 [facility] TexaspCO2 RbdE7570-45-37 03:30:00* Test Item Value Reference Range Interpretation Comments Arterial Blood Partial Pressure O2 (test code = 2018-) 82 80-105 [facility] TexasArterial blood bicarbonate measurement (moles/volume)2020-03-19 03:30:00* Test Item Value Reference Range Interpretation Comments Arterial Blood HCO3 (test code = 1960-4) 20 22-26 [facility] TexasArterial cord blood carbon dioxide, total measurement by calculation (moles/volume)2020-03-19 03:30:00* Test Item Value Reference Range Interpretation Comments Arterial Blood Total CO2 (test code = 85550-4) 21 [facility] TexasArterial blood base excess by calculation 2020-03-19 03:30:00* Test Item Value Reference Range Interpretation Comments Arterial Blood Base Excess (test code = 1925-7) -5.0 -2-3 [facility] TexasArterial blood oxygen saturation dakotqebcmh0970-94-40 03:30:00* Test Item Value Reference Range Interpretation Comments Arterial Blood Oxygen Saturation (test code = 2708-6) 96.0 95-98 [facility] TexasFluoroscopic procedure less than one hour zikficgk1407-50-16 03:30:00* Test Item Value Reference Range Interpretation Comments FiO2 (test code = FiO2) 40 Pt on 10L HFNCCHI [facility] 2020-03-19 03:27:00 [place] [address] Patient Name: MARISELA SMITH MR #: [id number] : 1935 Age/Sex: 85/M Req #: [id number] Adm Physician: Ordered by: DEE SALAZAR MD Report #: [id number] Location: ER Room/Bed: Procedure: [id number] DX/EDY ST SINGLE (PORTABLE) Exam Date: 03/19/20 [...] Color (test code = 5778-6) YELLOW YELLOW [facility] TexasUrine msywonn6430-61-14 02:55:00* Test Item Value Reference Range Interpretation Comments Urine Clarity (test code = 95833-5) SL CLOUDY CLEAR [facility]pecific gravity of Urine by Test strip 2020-03-19 02:55:00* Test Item Value Reference Range Interpretation Comments Urine Specific [place] (test code = 5811-5) 1.025 1.010-1.02 5 [facility] TexasUrine pH measurement by automated test pikbh6853-25-29 02:55:00* Test Item Value Reference Range Interpretation Comments Urine pH (test code = 04435-6) 5.5 5-7 [facility] TexasUrine leukocyte esterase detection by weapgqin0518-52-86 02:55:00* Test Item Value Reference Range Interpretation Comments Urine Leukocyte Esterase (test code = 5799-2) NEGATIVE NEGATIVE [facility] TexasUrine nitrite gdixtgoyc8532-93-70 02:55:00* Test Item Value Reference Range Interpretation Comments Urine Nitrite (test code = 56721-3) NEGATIVE NEGATIVE [facility] TexasUrine protein measurement by test strip (mass/volume)2020-03-19 02:55:00* Test Item Value Reference Range Interpretation Comments Urine Protein (test code = 5804-0) >=300 NEGATIVE [facility] TexasUrine glucose gpcfybzjp4747-32-16 02:55:00* Test Item Value Reference Range Interpretation Comments Urine Glucose (UA) (test code = 2349-9) NEGATIVE NEGATIVE [facility] TexasUrine ketones detection by automated test easyx3624-58-65 02:55:00* Test Item Value Reference Range Interpretation Comments Urine Ketones (test code = 51953-3) 1+ NEGATIVE [facility] TexasUrine urobilinogen measurement by test strip (mass/volume)2020-03-19 02:55:00* Test Item Value Reference Range Interpretation Comments Urine Urobilinogen (test code = 61643-9) 0.2 0.2-1 [facility] TexasUrine total bilirubin measurement (mass/volume)2020-03-19 02:55:00* Test Item Value Reference Range Interpretation Comments Urine Bilirubin (test code = 1978-6) NEGATIVE NEGATIVE [facility] TexasUrine erythrocytes eswzhaajk6188-33-47 02:55:00* Test Item Value Reference Range Interpretation Comments Urine Blood (test code = 35161-9) MODERATE NEGATIVE [facility] TexasAutomated urine sediment leukocyte count by microscopy (number/high power field)2020-03-19 02:55:00* Test Item Value Reference Range Interpretation Comments Urine WBC (test code = 5821-4) 0-5 0-5 [facility] TexasErythrocytes detection in urine sediment by light ooczjecxvq4367-83-82 02:55:00* Test Item Value Reference Range Interpretation Comments Urine RBC (test code = 35764-8) 6-10 0-5 [facility] TexasBacteria detection in urine sediment by light fkbrpbaxtw7655-40-86 02:55:00* Test Item Value Reference Range Interpretation Comments Urine Bacteria (test code = 40636-5) FEW NONE [facility] TexasEpithelial cells detection in urine sediment by light mlymqcbnrk4329-63-14 02:55:00* Test Item Value Reference Range Interpretation Comments Urine Epithelial Cells (test code = 89857-5) RARE NONE [facility] TexasAmorphous sediment detection in urine sediment by light vmudyjurqr2517-48-91 02:55:00* Test Item Value Reference Range Interpretation Comments Urine Amorphous Sediment (test code = 8246-1) MODERATE FEW [facility] TexasFluoroscopic procedure less than one hour behavtpg0051-08-69 02:49:00* Test Item Value Reference Range Interpretation [...] from individuals suspected of COVID-19 by their [facility] provider. This test has not been Food [...] under 564(g) of the ACT.Testing performed by [facility] [place], [place] [address]SAMD[facility] TexasProthrombin time (PT) in platelet poor plasma by coagulation lnxnw0332-70-50 02:17:00* Test Item Value Reference Range Interpretation Comments Prothrombin Time (test code = 5902-2) 15.4 11.9-14.5 [facility] TexasINR in Platelet poor plasma by Coagulation lajiw6933-36-03 02:17:00* Test Item Value Reference Range Interpretation Comments Prothromb Time International Ratio (test code = 6301-6) 1.16 Oral Anticoagulant Therapy INR Values:1. Low Intensity Therapy 1.5 - 2.02 . Moderate Intensity Therapy 2.0 - 3.03. High Intensity Therapy(1) 2.5 - 3. 54. High Intensity Therapy(2) 3.0 - 4.05. Panic Value INR > 5.0 [facility] TexasActivated partial thromboplastin time (aPTT) in platelet poor plasma by coagulation ncuut6407-93-95 02:17:00* Test Item Value Reference Range Interpretation Comments Activated Partial Thromboplast Time (test code = 99076-2) 41.2 23.8-35.5 [facility] TexasCHEST SINGLE (PORTABLE)2020-03-15 17:27:00 [facility] [address] [place] [address] Patient Name: MARISELA SMITH MR #: [id number] : 1935 Age/Sex: 85/M Req #: [id number] Adm Physician: Ordered by: ALEXUS HAWKINS MD Report #: [id number] Location: ER Room/Bed: Procedure: [id number] DX/CHEST SINGL E (PORTABLE) Exam Date: 03/15/20 [...] COPY TO: ALEXUS HAWKINS MD Urine color fudlnkhrsbjtr1252-40-42 16:39:00* Test Item Value Reference Range Interpretation Comments Urine Color (test code = 5778-6) YELLOW YELLOW [facility] TexasUrine bvwlynm4643-44-13 16:39:00* Test Item Value Reference Range Interpretation Comments Urine Clarity (test code = 96832-2) SL CLOUDY CLEAR [facility] Centerpecific gravity of Urine by Test strip 2020-03-15 16:39:00* Test Item Value Reference Range Interpretation Comments Urine Specific [place] (test code = 5811-5) 1.025 1.010-1.02 5 [facility] TexasUrine pH measurement by automated test gsohw7802-42-86 16:39:00* Test Item Value Reference Range Interpretation Comments Urine pH (test code = 37541-4) 6 5-7 [facility] TexasUrine leukocyte esterase detection by zzuwejor9229-26-24 16:39:00* Test Item Value Reference Range Interpretation Comments Urine Leukocyte Esterase (test code = 5799-2) NEGATIVE NEGATIVE [facility] TexasUrine nitrite tqmknkbyq3063-68-43 16:39:00* Test Item Value Reference Range Interpretation Comments Urine Nitrite (test code = 12186-2) NEGATIVE NEGATIVE [facility] TexasUrine protein measurement by test strip (mass/volume)2020-03-15 16:39:00* Test Item Value Reference Range Interpretation Comments Urine Protein (test code = 5804-0) 1+ NEGATIVE [facility] TexasUrine glucose cabsuxbur0698-91-79 16:39:00* Test Item Value Reference Range Interpretation Comments Urine Glucose (UA) (test code = 2349-9) NEGATIVE NEGATIVE [facility] TexasUrine ketones detection by automated test wdxrc5231-64-94 16:39:00* Test Item Value Reference Range Interpretation Comments Urine Ketones (test code = 28364-3) TRACE NEGATIVE [facility] TexasUrine urobilinogen measurement by test strip (mass/volume)2020-03-15 16:39:00* Test Item Value Reference Range Interpretation Comments Urine Urobilinogen (test code = 60727-1) 1 0.2-1 [facility] TexasUrine total bilirubin measurement (mass/volume)2020-03-15 16:39:00* Test Item Value Reference Range Interpretation Comments Urine Bilirubin (test code = 1978-6) SMALL NEGATIVE [facility] TexasUrine erythrocytes qnycpdkgc2541-84-77 16:39:00* Test Item Value Reference Range Interpretation Comments Urine Blood (test code = 62576-8) SMALL NEGATIVE [facility] TexasAutomated urine sediment leukocyte count by microscopy (number/high power field)2020-03-15 16:39:00* Test Item Value Reference Range Interpretation Comments Urine WBC (test code = 5821-4) NONE 0-5 [facility] TexasErythrocytes detection in urine sediment by light zqmnpatdgb5057-96-65 16:39:00* Test Item Value Reference Range Interpretation Comments Urine RBC (test code = 38552-0) 0-5 0-5 [facility] TexasBacteria detection in urine sediment by light wdkwxsyjtb6020-30-83 16:39:00* Test Item Value Reference Range Interpretation Comments Urine Bacteria (test code = 85923-7) MODERATE NONE [facility] TexasEpithelial cells detection in urine sediment by light onnqmbmfqn6469-63-40 16:39:00* Test Item Value Reference Range Interpretation Comments Urine Epithelial Cells (test code = 40203-3) NONE NONE [facility] TexasBlood leukocytes automated count (number/volume)2020-03-15 16:05:00* Test Item Value Reference Range Interpretation Comments White Blood Count (test code = 6690-2) 6.26 4.8-10.8 [facility] TexasBlood erythrocytes automated count (number/volume)2020-03-15 16:05:00* Test Item Value Reference Range Interpretation Comments Red Blood Count (test code = 789-8) 3.49 4.3-5.7 [facility] TexasBlood hemoglobin measurement (moles/volume)2020-03-15 16:05:00* Test Item Value Reference Range Interpretation Comments Hemoglobin (test code = 79189-0) 11.4 14.0-18.0 [facility] TexasAutomated blood hematocrit (volume fraction)2020-03-15 16:05:00* Test Item Value Reference Range Interpretation Comments Hematocrit (test code = 4544-3) 33.4 38.2-49.6 [facility] TexasAutomated erythrocyte mean corpuscular zaarfg2335-48-76 16:05:00* Test Item Value Reference Range Interpretation Comments Mean Corpuscular Volume (test code = 787-2) 95.7 81-99 [facility] TexasAutomated erythrocyte mean corpuscular hemoglobin (mass per erythrocyte)2020-03-15 16:05:00* Test Item Value Reference Range Interpretation Comments Mean Corpuscular Hemoglobin (test code = 785-6) 32.7 28-32 [facility] TexasAutomated erythrocyte mean corpuscular hemoglobin concentration measurement (mass/volume)2020-03-15 16:05:00* Test Item Value Reference Range Interpretation Comments Mean Corpuscular Hemoglobin Concent (test code = 786-4) 34.1 31-35 [facility] TexasRDW CdjEj-Ebh2630-26-24 16:05:00* Test Item Value Reference Range Interpretation Comments Red Cell Distribution Width (test code = 98201-4) 13.6 11.7 -14.4 [facility] TexasAutomated blood platelet count (count/volume)2020-03-15 16:05:00* Test Item Value Reference Range Interpretation Comments Platelet Count (test code = 777-3) 250 140-360 [facility]ered [facility] segmented neutrophil count as percentage of total dzevufjvmn1609-48-20 16:05:00* Test Item Value Reference Range Interpretation Comments Neutrophils (%) (Auto) (test code = 87955-0) 84.6 38.7-80.0 [facility] TexasAutomated blood lymphocyte count as percentage ot total tmlgzkeihq7665-53-27 16:05:00* Test Item Value Reference Range Interpretation Comments Lymphocytes (%) (Auto) (test code = 736-9) 8.3 18.0-39.1 [facility] TexasAutomated blood monocyte count as percentage of total nemvgiccoj9990-34-43 16:05:00* Test Item Value Reference Range Interpretation Comments Monocytes (%) (Auto) (test code = 5905-5) 6.4 4.4-11.3 [facility] TexasAutomated blood eosinophil count as percentage of total qobjqlrbsn7855-27-16 16:05:00* Test Item Value Reference Range Interpretation Comments Eosinophils (%) (Auto) (test code = 713-8) 0.2 0.0-6.0 [facility] TexasAutomated blood basophil count as percentage of total lodfiivlqb0705-89-75 16:05:00* Test Item Value Reference Range Interpretation Comments Basophils (%) (Auto) (test code = 706-2) 0.2 0.0-1.0 [facility] TexasFluoroscopic procedure less than one hour gudrglzo1291-70-31 16:05:00* Test Item Value Reference Range Interpretation Comments IM GRANULOCYTES % (test code = IM GRANULOCYTES %) 0.3 0.0- 1.0 [facility] TexasAutomated blood neutrophil count 2020-03-15 16:05:00* Test Item Value Reference Range Interpretation Comments Neutrophils # (Auto) (test code = 751-8) 5.3 2.1-6.9 [facility] TexasBlood lymphocytes count (number/volume) 2020-03-15 16:05:00* Test Item Value Reference Range Interpretation Comments Lymphocytes # (Auto) (test code = 84264-5) 0.5 1.0-3.2 [facility] TexasBlood monocytes automated count (number/volume)2020-03-15 16:05:00* Test Item Value Reference Range Interpretation Comments Monocytes # (Auto) (test code = 742-7) 0.4 0.2-0.8 [facility] TexasAutomated blood eosinophil count 2020-03-15 16:05:00* Test Item Value Reference Range Interpretation Comments Eosinophils # (Auto) (test code = 711-2) 0.0 0.0-0.4 [facility] TexasAutomated blood basophil count (count/volume)2020-03-15 16:05:00* Test Item Value Reference Range Interpretation Comments Basophils # (Auto) (test code = 704-7) 0.0 0.0-0.1 [facility] TexasFluoroscopic procedure less than one hour mcnqdkal2861-00-74 16:05:00* Test Item Value Reference Range Interpretation Comments Absolute Immature Granulocyte (auto (harrison t code = Absolute Immature Granulocyte (auto) 0.02 0-0.1 [facility] TexasProthrombin time (PT) in platelet poor plasma by coagulation hnwtv4995-27-75 16:05:00* Test Item Value Reference Range Interpretation Comments Prothrombin Time (test code = 5902-2) 15.8 11.9-14.5 [facility] TexasINR in Platelet poor plasma by Coagulation rkave0963-97-86 16:05:00* Test Item Value Reference Range Interpretation Comments Prothromb Time International Ratio (test code = 6301-6) 1.19 Oral Anticoagulant Therapy INR Values:1. Low Intensity Therapy 1.5 - 2.02 . Moderate Intensity Therapy 2.0 - 3.03. High Intensity Therapy(1) 2.5 - 3. 54. High Intensity Therapy(2) 3.0 - 4.05. Panic Value INR > 5.0 [facility] TexasActivated partial thromboplastin time (aPTT) in platelet poor plasma by coagulation rpnuo8057-77-74 16:05:00* Test Item Value Reference Range Interpretation Comments Activated Partial Thromboplast Time (test code = 69348-3) 38.3 23.8-35.5 [facility]ererum or plasma sodium measurement (moles/volume)2020-03-15 16:05:00* Test Item Value Reference Range Interpretation Comments Sodium Level (test code = 2951-2) 134 136-145 [facility] Centererum or plasma potassium measurement (moles/volume)2020-03-15 16:05:00* Test Item Value Reference Range Interpretation Comments Potassium Level (test code = 2823-3) 3.9 3.5-5.1 [facility] Centererum or plasma chloride measurement (moles/volume)2020-03-15 16:05:00* Test Item Value Reference Range Interpretation Comments Chloride Level (test code = 2075-0) 101 98-107 [facility] Centererum or plasma carbon dioxide, total measurement (moles/volume)2020-03-15 16:05:00* Test Item Value Reference Range Interpretation Comments Carbon Dioxide Level (test code = 2028-9) 20 22-29 [facility] Centererum or plasma anion mwa6181-43-68 16:05:00* Test Item Value Reference Range Interpretation Comments Anion Gap (test code = 97572-0) 16.9 8-16 [facility] Centererum or plasma urea nitrogen measurement (mass/volume)2020-03-15 16:05:00* Test Item Value Reference Range Interpretation Comments Blood Urea Nitrogen (test code = 3094-0) 19 7-26 [facility] Centererum or plasma creatinine measurement (mass/volume)2020-03-15 16:05:00* Test Item Value Reference Range Interpretation Comments Creatinine (test code = 2160-0) 0.79 0.72-1.25 [facility] Centererum or plasma urea nitrogen/creatinine mass xqwnv0508-17-29 16:05:00* Test Item Value Reference Range Interpretation Comments BUN/Creatinine Ratio (test code = 3097-3) 24 6-25 [facility] TexasEstimated glomerular filtration rate (GFR) kuclmhzbbwpli0863-05-65 16:05:00* Test Item Value Reference Range Interpretation Comments Estimat Glomerular Filtration Rate (test code = 119278858) > 60 >60 Ranges were taken from the National Kidney Disease Education Program and the [place] counts include [facility] Kid[facility] Foundation literature.Reference ranges:60 or greater: Goxhxb59-91 ( for 3 consecutive months): Chronic kidney disease 15 or less: Kidney failureDell [facility]on Medical Center at [facility] University of TexasGlucose nvrwghiwlca8599-50-73 16:05:00* Test Item Value Reference Range Interpretation Comments Glucose Level (test code = WUA2186) 85 74-118 [facility] Centererum or plasma calcium measurement (mass/volume)2020-03-15 16:05:00* Test Item Value Reference Range Interpretation Comments Calcium Level (test code = 18730-8) 8.4 8.4-10.2 [facility] TexasFluoroscopic procedure less than one hour rljnuldv2796-02-33 16:05:00* Test Item Value Reference Range Interpretation Comments Lactic Acid Level (test code = Lactic Acid Level) 0.7 0.5- 2.0 [facility] Centererum or plasma total bilirubin measurement (mass/volume)2020-03-15 16:05:00* Test Item Value Reference Range Interpretation Comments Total Bilirubin (test code = 1975-2) 0.3 0.2-1.2 [facility] TexasFluoroscopic procedure less than one hour piipmopu7469-96-06 16:05:00* Test Item Value Reference Range Interpretation Comments Aspartate Amino Transf (AST/SGOT) (test code = Aspartate Amino Transf (AST/SGOT)) 34 5-34 [facility] Centererum or plasma alanine aminotransferase measurement (enzymatic activity/volume)2020-03-15 16:05:00* Test Item Value Reference Range Interpretation Comments Alanine Aminotransferase (ALT/SGPT) (test code = 1742-6) 14 0-55 [facility] Centererum or plasma protein measurement (mass/volume)2020-03-15 16:05:00* Test Item Value Reference Range Interpretation Comments Total Protein (test code = 2885-2) 6.8 6.5-8.1 [facility] Centererum or plasma albumin measurement (mass/volume)2020-03-15 16:05:00* Test Item Value Reference Range Interpretation Comments Albumin (test code = 1751-7) 3.2 3.5-5.0 [facility] TexasPlasma globulin measurement (mass/volume) 2020-03-15 16:05:00* Test Item Value Reference Range Interpretation Comments Globulin (test code = 94835-7) 3.6 2.3-3.5 [facility] Centererum or plasma albumin/globulin mass tiqkf0197-81-39 16:05:00* Test Item Value Reference Range Interpretation Comments Albumin/Globulin Ratio (test code = 1759-0) 0.9 0.8-2.0 [facility] Centererum or plasma alkaline phosphatase measurement (enzymatic activity/volume)2020-03-15 16:05:00* Test Item Value Reference Range Interpretation Comments Alkaline Phosphatase (test code = 6768-6) 80 40-150 [facility] Centererum or plasma creatine kinase measurement (enzymatic activity/volume)2020-03-15 16:05:00* Test Item Value Reference Range Interpretation Comments Creatine Kinase (test code = 2157-6) 695 30-200 [facility] Centererum or plasma creatine kinase MB measurement (mass/volume)2020-03-15 16:05:00* Test Item Value Reference Range Interpretation Comments Creatine Kinase MB (test code = 89813-1) 1.40 0-5.0 [facility] TexasTroponin I measurement by highly sensitive enzyme sqmlxhtxlcv0367-48-44 16:05:00* Test Item Value Reference Range Interpretation Comments Troponin I (test code = 88786-0) 0.031 0-0.300 [facility] TexasFluoroscopic procedure less than one hour ylfhsonb9020-32-29 16:05:00* Test Item Value Reference Range Interpretation Comments Lactic Acid Level (test code = Lactic Acid Level) 0.7 0.5- 2.0 [facility] TexasBlood hvqmfns1256-89-17 16:05:00* Test Item Value Reference Range Interpretation Comments Blood Culture (test code = 96064105) NO GROWTH AFTER 5 DAYS, FINAL REPORT [facility] CenterP LUMBAR, COMPLETE MIN 7WF6076-33-14 16:00:00 [facility] [address] [place] [address] Patient Name: MARISELA SMITH MR #: [id number] : 1935 Age/Sex: 84/M Req #: [id number] Adm Physician: Ordered by: KAREEM DIXON DO Report #: [id number] Location: ER Room/Bed: Procedure: [id number] DX/SP LUMB AR, COMPLETE MIN 4VW Exam [...] 4:08 PM Dictated By: JOÃO TORREZ MD [facility] ically Signed By: JOÃO TORREZ MD on 02/08/20 1608 Transcribed By: HARI on 1608 COPY TO: KAREEM DIXON DO THORACIC SP 6V5154-69-42 16:00:00 [place] [address] Patient Name: MARISELA SMITH MR #: [id number] : 1935 Age/Sex: 84/M Req #: [id number] Adm Physician: Ordered by: KAREEM DIXON DO Report #: [id number] Location: ER Room/Bed: Procedure: [id number] DX/THORACI C SP 3V Exam Date: 02/08/20 [...] 1608 COPY TO: KAREEM DIXON DO URINALYSIS PKVWGKVR9046-51-84 19:45:00* Test Item Value Reference Range Interpretation [...] #/LPF FEW Urine Source? Clean CatchBASIC METABOLIC WSYAW3119-79-39 17:43:00* Test Item Value Reference Range Interpretation [...] code = CA) 8.5 mg/dL 8.5-10.1 N UKYHYCIS-X3458-25-04 17:43:00* Test Item Value Reference Range Interpretation Comments TROPONIN-I (test code = TROPI) <0.015 ng/mL 0-0.045 N BASIC METABOLIC QNQQH0956-57-41 17:32:00* Test Item Value Reference Range Interpretation [...] CALCIUM (test code = CA) mg/dL 8.5-10.1 [id number]-[id number] 17:32:00* Test Item Value Reference Range Interpretation Comments TROPONIN-I (test code = TROPI) ng/mL 0-0.045 - CT C-SPINE W/O [id number] 17:24:00 Name: MARISELA SMITH [facility] : 1935 Age/S: 84 / M [address] [facility] Unit #: [id number] Loc: [place] [address] Phys: Julian Good MD Acct: [id number] Dis Date: Status: REG ER PHONE #: [phone] Exam Date: 12/25/2019 1650 FAX #: [phone] Reason: neck pain EXAMS: CPT CODE: [id number] CT C-SPINE W/O CONTRAST 54578 EXAM: CT of the cervical spine without [...] thoracic spi ne, probably chronic. Location code: [facility] at 1724 Reported and signed by: Reinaldo Butt M.D. CC: Julian Good MD Technologist:Analisa CHAUDHRY(R); FARIDEH Carey CTDI: DLP: Trnscb Date/Time: 12/25/2019 (1723) [email or web address] Orig Print D/T: S: 12/25/2019 (2598) PAGE 1 Signed Report CBC W/O [id number] 17:23:00* Test Item Value Reference Range Interpretation [...] fL 6.7-11.0 N - CT HEAD/BRAIN W/O [id number] 17:17:00 Name: MEASURES,MARISELA [facility] : 1935 Age/S: 84 / M [address] Unit #: [id number] Loc: [place] [address] Phys: Julian Good MD Acct: [id number] Dis Date: Status: REG ER PHONE #: [phone] Exam Date: 12/25/2019 1645 FAX #: [phone] Reason: vertigo EXAMS: CPT CODE: [id number] CT HEAD/BRAIN W/O CONT 41335 EXAM: CT of the head without contrast; [...] changes. 3. Moderate atr ophy. Location code: [facility] Electronically S igned by Rossana Butt on 12/25/2019 at 1717 Reported and signed by: Ana Posey CC: Julian Good MD Tech nologist:Analisa Ramires RT(R); FARIDEH Carey CTDI: DLP: Trnscb Date/Ti me: 12/25/2019 (171) tJEMAL Orig Print D/T: S: 2019 (1720) PAGE 1 Signed Report Phenytoin (Dilantin) [id number] 07:42:00* Test Item Value Reference Range Interpretation Comments Phenytoin (Dilantin) Level (test code = 3968-5) 10.51 10-20 Reference Range:10.0-20.0 ug/mlTest performed at [facility]henobar[facility] Wuyub5750-00-05 07:40:00* Test Item Value Reference Range Interpretation Comments Phenobarbital Level (test code = 3948-7) 23.4 Reference Range:15.0-40.0 mcg/mlPERFORMED AT [facility] TMCCHI [facility] [id number] 15:41:00 [facility] [address] [address] Patient Name: MARISELA SMITH MR #: [id number] : 1935 Age/Sex: 83/M Req #: [id number] Adm Physician: KAYLAH ANDERSON MD Ordered by: KAYLAH ANDERSON MD Report #: [id number] Location: [facility] Room/Bed: [place] [address] Procedure: [id number] C T/CT HIP RIGHT WO Exam Date: [...] gned By: GLADYS FORBES MD on 10/25/18 1544 Transcribed By: HARI on 7262 COPY TO: KAYLAH ANDERSON MD Urine [id number] 05:08:00* Test Item Value Reference Range Interpretation Comments Urine WBC (test code = 5821-4) 0-5 0-5 [facility] [id number] 05:08:00* Test Item Value Reference Range Interpretation Comments Urine RBC (test code = 19576-9) 0-5 0-5 [facility] Nogigufg7094-80-73 05:08:00* Test Item Value Reference Range Interpretation Comments Urine Bacteria (test code = 91137-7) NONE NONE [facility] TexasU[facility] Epithelial Oftin2303-13-22 05:08:00 * Test Item Value Reference Range Interpretation Comments Urine Epithelial Cells (test code = 11908-1) RARE NONE [facility] Pwokh7456-03-48 04:58:00* Test Item Value Reference Range Interpretation Comments Urine Color (test code = 5778-6) YELLOW YELLOW [facility] Qhathwj2478-06-27 04:58:00* Test Item Value Reference Range Interpretation Comments Urine Clarity (test code = 41737-3) CLEAR CLEAR [facility] TexasU[facility] Specific Qmjzeqv8147-69-61 04:58:00 * Test Item Value Reference Range Interpretation Comments Urine Specific [place] (test code = 5811-5) 1.010 1.010-1.02 5 [facility] [id number] 04:58:00* Test Item Value Reference Range Interpretation Comments Urine pH (test code = 31231-8) 7 5-7 [facility] Leukocyte Drziqibw3796-02-62 04:58:00* Test Item Value Reference Range Interpretation Comments Urine Leukocyte Esterase (test code = 5799-2) NEGATIVE NEGATIVE [facility] Pgdhrnm4868-11-43 04:58:00* Test Item Value Reference Range Interpretation Comments Urine Nitrite (test code = 61521-0) NEGATIVE NEGATIVE [facility] TexasU[facility] Bchubup8464-22-89 04:58:00* Test Item Value Reference Range Interpretation Comments Urine Protein (test code = 5804-0) NEGATIVE NEGATIVE [facility] Glucose (UA)2018-10-25 04:58:00* Test Item Value Reference Range Interpretation Comments Urine Glucose (UA) (test code = 2349-9) NEGATIVE NEGATIVE [facility] Qgrszsc6778-51-60 04:58:00* Test Item Value Reference Range Interpretation Comments Urine Ketones (test code = 51220-8) NEGATIVE NEGATIVE [facility] Inqvslemhgkr9124-85-26 04:58:00* Test Item Value Reference Range Interpretation Comments Urine Urobilinogen (test code = 90369-1) 0.2 0.2-1 [facility] Rbwkhrykj3138-62-62 04:58:00* Test Item Value Reference Range Interpretation Comments Urine Bilirubin (test code = 1978-6) NEGATIVE NEGATIVE [facility] Yjcaq0003-57-04 04:58:00* Test Item Value Reference Range Interpretation Comments Urine Blood (test code = 56644-6) NEGATIVE NEGATIVE [facility] TexasCreatine Kinase PU1111-38-86 04:49:00* Test Item Value Reference Range Interpretation Comments Creatine Kinase MB (test code = 24471-6) 1.30 0-4.3 [facility] TexasTroponin Y0347-98-78 04:49:00* Test Item Value Reference Range Interpretation Comments Troponin I (test code = 53529-5) < 0.05 0.0-0.40 [facility] TexasHIP RIGHT 2-3 VW (+/- PELVIS)2018-10-25 04:41:00 [facility] [address] [address] Patient Name: MARISELA SMITH MR #: [id number] : 1935 Age/Sex: 83/M Req #: [id number] Adm Physician: Ordered by: DEE SALAZAR MD Report #: [id number] Location: ER Room/Bed: Procedure: 14 DX/HIP RIGHT [...] SALAZAR MD CHEST SINGLE (NOT PORTABLE)2018-10-25 04:39:[address] [address] Patient Name: MARISELA SMITH MR #: [id number] : 1935 Age/Sex: 83/M Req #: [id number] Adm Physician: Ordered by: DEE SALAZAR MD [...] (test code = 2951-2) 129 136-145 L [facility] TexasPotassium Bozzf6248-00-26 04:20:00* Test Item Value Reference Range Interpretation Comments Potassium Level (test code = 2823-3) 3.7 3.5-5.1 [facility] TexasChloride Looat5694-99-48 04:20:00* Test Item Value Reference Range Interpretation Comments Chloride Level (test code = 2075-0) 95 98-107 L [facility] TexasCarbon Dioxide Ilpnu3562-73-47 04:20:00* Test Item Value Reference Range Interpretation Comments Carbon Dioxide Level (test code = 2028-9) 24 22-29 [facility] TexasAnion Rfa6775-47-82 04:20:00* Test Item Value Reference Range Interpretation Comments Anion Gap (test code = 30926-3) 13.7 8-16 [facility] TexasBlood Urea Xqbzckos6134-22-44 04:20:00* Test Item Value Reference Range Interpretation Comments Blood Urea Nitrogen (test code = 3094-0) 12 7-26 [facility] TexasCreatinine2019-03-05 04:20:00* Test Item Value Reference Range Interpretation Comments Creatinine (test code = 2160-0) 0.80 0.72-1.25 [facility] TexasBUN/Creatinine Exofm9588-16-31 04:20:00* Test Item Value Reference Range Interpretation Comments BUN/Creatinine Ratio (test code = 3097-3) 15 6-25 [facility] TexasEstimat Glomerular Filtration Rate 2018-10-25 04:20:00* Test Item Value Reference Range Interpretation Comments Estimat Glomerular Filtration Rate (test code = 584089698) > 60 >60 Ranges were taken from the National Kidney Disease Education Program and the [facility] Kidney Foundation literature.Reference ranges:60 or greater: Efljoy14-82 ( for 3 consecutive months): Chronic kidney disease 15 or less: Kidney failureD[facility] at [facility] University of TexasGlucose Iwguf6125-30-09 04:20:00* Test Item Value Reference Range Interpretation Comments Glucose Level (test code = VCP9358) 101 74-118 [facility] TexasCalcium Xmrvc6477-57-87 04:20:00* Test Item Value Reference Range Interpretation Comments Calcium Level (test code = 34411-9) 9.5 8.4-10.2 [facility] TexasTotal Vguktgxsg4345-64-28 04:20:00* Test Item Value Reference Range Interpretation Comments Total Bilirubin (test code = 1975-2) 0.5 0.2-1.2 [facility] of TexasAspartate Amino Transf (AST/SGOT) 2018-10-25 04:20:00* Test Item Value Reference Range Interpretation Comments Aspartate Amino Transf (AST/SGOT) (test code = Aspartate Amino Transf (AST/SGOT)) 24 5-34 [facility] TexasAlanine Aminotransferase (ALT/SGPT) 2018-10-25 04:20:00* Test Item Value Reference Range Interpretation Comments Alanine Aminotransferase (ALT/SGPT) (test code = 1742-6) 15 0-55 [facility] TexasTotal Taigltb8523-75-99 04:20:00* Test Item Value Reference Range Interpretation Comments Total Protein (test code = 2885-2) 7.0 6.5-8.1 [facility] TexasAlbumin2019-03-05 04:20:00* Test Item Value Reference Range Interpretation Comments Albumin (test code = 1751-7) 3.7 3.5-5.0 [facility] TexasGlobulin2019-03-05 04:20:00* Test Item Value Reference Range Interpretation Comments Globulin (test code = 24896-9) 3.3 2.3-3.5 [facility] TexasAlbumin/Globulin Prgvq4708-62-02 04:20:00 * Test Item Value Reference Range Interpretation Comments Albumin/Globulin Ratio (test code = 1759-0) 1.1 0.8-2.0 [facility] TexasAlkaline Djbypsnsnbh6692-36-02 04:20:00* Test Item Value Reference Range Interpretation Comments Alkaline Phosphatase (test code = 6768-6) 92 40-150 [facility] TexasCreatine Zbzsip5943-83-58 04:20:00* Test Item Value Reference Range Interpretation Comments Creatine Kinase (test code = 2157-6) 99 30-200 [facility] TexasWhite Blood Xjlmj5000-20-91 03:56:00* Test Item Value Reference Range Interpretation Comments White Blood Count (test code = 6690-2) 7.80 4.8-10.8 [facility] TexasRed Blood Yjsei1802-67-90 03:56:00* Test Item Value Reference Range Interpretation Comments Red Blood Count (test code = 789-8) 3.53 4.3-5.7 L [facility] TexasHemoglobin2019-03-05 03:56:00* Test Item Value Reference Range Interpretation Comments Hemoglobin (test code = 49866-7) 11.8 14.0-18.0 L [facility] TexasHematocrit2019-03-05 03:56:00* Test Item Value Reference Range Interpretation Comments Hematocrit (test code = 4544-3) 33.7 38.2-49.6 L [facility] of TexasMean Corpuscular Omoshn3079-57-88 03:56:00* Test Item Value Reference Range Interpretation Comments Mean Corpuscular Volume (test code = 787-2) 95.5 81-99 [facility] TexasMean Corpuscular Juzybnpehd4398-87-56 03:56:00* Test Item Value Reference Range Interpretation Comments Mean Corpuscular Hemoglobin (test code = 785-6) 33.4 28-32 H [facility] of TexasMean Corpuscular Hemoglobin Concent 2018-10-25 03:56:00* Test Item Value Reference Range Interpretation Comments Mean Corpuscular Hemoglobin Concent (test code = 786-4) 35.0 31-35 [facility] TexasRed Cell Distribution Giilg6806-00-81 03:56:00* Test Item Value Reference Range Interpretation Comments Red Cell Distribution Width (test code = 55168-1) 12.5 11.7 -14.4 [facility] of TexasPlatelet Qfdxg6431-98-98 03:56:00* Test Item Value Reference Range Interpretation Comments Platelet Count (test code = 777-3) 214 140-360 [facility] TexasNeutrophils (%) (Auto)2018-10-25 03:56:00 * Test Item Value Reference Range Interpretation Comments Neutrophils (%) (Auto) (test code = 93532-8) 72.8 38.7-80.0 [facility] of TexasLymphocytes (%) (Auto)2018-10-25 03:56:00 * Test Item Value Reference Range Interpretation Comments Lymphocytes (%) (Auto) (test code = 736-9) 11.5 18.0-39.1 L [facility] TexasMonocytes (%) (Auto)2018-10-25 03:56:00* Test Item Value Reference Range Interpretation Comments Monocytes (%) (Auto) (test code = 5905-5) 10.5 4.4-11.3 [facility] TexasEosinophils (%) (Auto)2018-10-25 03:56:00 * Test Item Value Reference Range Interpretation Comments Eosinophils (%) (Auto) (test code = 713-8) 4.4 0.0-6.0 [facility] TexasBasophils (%) (Auto)2018-10-25 03:56:00* Test Item Value Reference Range Interpretation Comments Basophils (%) (Auto) (test code = 706-2) 0.3 0.0-1.0 [facility] University of TexasIM GRANULOCYTES %2018-10-25 03:56:00* Test Item Value Reference Range Interpretation Comments IM GRANULOCYTES % (test code = IM GRANULOCYTES %) 0.5 0.0- 1.0 [facility] TexasNeutrophils # (Auto)2018-10-25 03:56:00* Test Item Value Reference Range Interpretation Comments Neutrophils # (Auto) (test code = 751-8) 5.7 2.1-6.9 [facility] of TexasLymphocytes # (Auto)2018-10-25 03:56:00* Test Item Value Reference Range Interpretation Comments Lymphocytes # (Auto) (test code = 11118-5) 0.9 1.0-3.2 L [facility] TexasMonocytes # (Auto)2018-10-25 03:56:00* Test Item Value Reference Range Interpretation Comments Monocytes # (Auto) (test code = 742-7) 0.8 0.2-0.8 [facility] TexasEosinophils # (Auto)2018-10-25 03:56:00* Test Item Value Reference Range Interpretation Comments Eosinophils # (Auto) (test code = 711-2) 0.3 0.0-0.4 [facility] TexasBasophils # (Auto)2018-10-25 03:56:00* Test Item Value Reference Range Interpretation Comments Basophils # (Auto) (test code = 704-7) 0.0 0.0-0.1 [facility] of TexasAbsolute Immature Granulocyte (auto 2018-10-25 03:56:00* Test Item Value Reference Range Interpretation Comments Absolute Immature Granulocyte (auto (harrison t code = Absolute Immature Granulocyte (auto) 0.04 0-0.1 [facility]
--- NOTE | 2020-04-03 09:27 | Discharge Summary ---
had been noted to have COVID-19. FINAL DIAGNOSIS: COVID-19 pneumonia, multifocal pneumonia, hypertension and seizure disorder. HOSPITAL COURSE: An 85-year-old male with known history of diabetes type 2, hypertension, seizure disorder, polyneuropathy, brought to the ER from his SNF facility due to hypoxia, which was found to be positive for COVID-19. Complains of shortness of breath, frequent cough, does have history of squamous cell carcinoma, history of urine evaluation was conducted in the ER. The patient was admitted for COVID-19 pneumonia, multifocal pneumonia, respiratory failure, diabetes type 2, seizure disorder, will admit to COVID-19 ICU and a Pulmonary consult, infectious Disease consult. Prognosis noted to be poor. With admission, the patient was being seen by Pulmonary, Dr. Guzmán regarding issues of dyspnea and worsening oxygen saturations. With review impression was made of acute respiratory failure, viral pneumonia, and coronavirus disease 19 infection, anion gap metabolic acidosis, acute kidney injury, history of seizure disorder, hypertension, and neuropathy. Plan is to wean O2 as tolerated. The patient will be requiring IV antibiotics cover for any superimposed bacterial pneumonia. regarding findings of COVID-19 as an outpatient. Impression was made of respiratory failure and COVID-19. Agree with Rocephin, agree with azithromycin. We will place him on Decadron 6 mg daily for 10 days, oxygen as needed. DVT prophylaxis. The patient's condition reached a point where he was intubated by Dr. Guzmán due to respiratory failure. This was performed due to issues, which was deemed emergent due to unresponsiveness and agonal breathing. Postprocedure, there was noted to have good CO2 return, equal breath sounds bilaterally. Saturation remaining high in the . Was being maintained care in IMCU as mentioned early on that he became high hypoxic which required intubation requiring pain control. Medications were being managed. Vital signs are being monitored. Discussions with the family, it was noted that they were requesting to disconnect the vent, will be keeping the patient comfortable, will be on mild pain medication. The patient's condition deteriorated post event and on 04/20 Dr. Guzmán pronounced the patient found to be without pulse, without respirations and was pronounced at 1805. I was made aware of the patient's demise by the nursing crusher supervisor. IMAGING: Initial chest x-ray was showing findings of multifocal pneumonia. Additional x-rays were performed of the chest. Final chest x-ray shows no significant interval change from previous study. X-rays of the abdomen reveals endotracheal tube terminates at the syeda. Recommend withdrawal by 3-4 cm. Enteric tube terminates in the stomach. Interval increase in the left lung hazy opacity. Cultures; blood were negative. Urine was negative. CBC shows initial white cell count of 6400, H and H was 11.9 and 35.6, followup CBC 1 day later with a white cell count has significant risen to 22,000, H and H was 12.9 and 39.3. COVID-19 study was still positive. Urinalysis was showing protein greater than 300, 1+ ketones, moderate amount of occult blood. Microscopic examination of sediment showing 6-10 rbc's by high-power field, 0-5 wbc's by high-power field, few bacteria. Chemistries; initial panel electrolytes were stable. Kidney function stable. Glucose 96. Followup chemistries, potassium had risen to 5.3, BUN was 39, creatinine 1.43. As stated, the family wished to have the vent terminated, this was carried out. The patient's condition deteriorated rapidly once turned off and the patient was pronounced as mentioned. Dictated by MIKE Liz Lamont Melton MD CC/MODL /[id number]
== END 2020-03-20 22:21 | disposition expired | DRG 208 ==
LOC: ER 02:16 → ERHOLD 04:04 → COVIDICU 05:58
PROC: 0BH17EZ Insertion of Endotracheal Airway into Trachea, Via Natural or Artificial Opening (ICD-10-PCS; principal; 2020-03-19)
PROC: 5A1935Z Respiratory Ventilation, Less than 24 Consecutive Hours (ICD-10-PCS; 2020-03-19)
DX: U07.1 COVID-19 (principal); J12.9 Viral pneumonia, unspecified; J96.01 Acute respiratory failure with hypoxia; E87.2 Acidosis; N17.9 Acute kidney failure, unspecified; G93.1 Anoxic brain damage, not elsewhere classified; I10 Essential (primary) hypertension; Z66 Do not resuscitate; G40.909 Epilepsy, unspecified, not intractable, without status epilepticus; E11.42 Type 2 diabetes mellitus with diabetic polyneuropathy; Z79.4 Long term (current) use of insulin; Z85.9 Personal history of malignant neoplasm, unspecified
CPT/HCPCS: 31500; 36415; 36600; 71045; 74018; 80053; 81001; 82550; 82553; 82805; 82948; 84484; 85025; 85610; 85730; 87040; 87086; 93005; 93306; 94002; 94003; 99285; J0456; J0696; J1100; J1650; J2060; J2250; J7030; J7050; J7070; J7121; U0002